=== PATIENT | female | born 1995 | race Caucasian/White ===

== ENCOUNTER → 2021-07-03 13:27 | Outpatient (REF) | payer MEDICAID, SELFPAY ==
--- NOTE | 2021-07-03 13:34 | ECG_ITS ---
Hook-up date: 2021-07-03 13:54:00 Duration: 43:13:00 Test Indications: DIZZINESS Medications: 944330 QRS complexes 1 Ventricular ectopics which represent <1 % of total QRS comp. * Supraventricular ectopics which represent % of total QRS comp. * Paced QRS complexs which represent % of total QRS comp. VENTRICULAR ECTOPY 1 Isolated 0 Bigeminal Cycles 0 Couplets 0 Runs 0 Beats in Runs * Beats LONGEST at * BPM at :: -- * Beats FASTEST at * BPM at :: -- SUPRAVENTRICULAR ECTOPY * Isolated * Couplets * Runs * Beats in Runs * Beats LONGEST at * BPM at :: -- * Beats FASTEST at * BPM at :: -- HEART RATES 51 MIN at 00:34:36 2021-07-04 84 AVG 153 MAX at 09:41:55 2021-07-04 LONGEST RR 1.3360 secs at 00:51:11 2021-07-04 S-T LEVELS Channel 1 - 128 mm at 13:54:00 2021-07-03 - 128 mm at 13:54:00 2021-07-03 Channel 2 - 128 mm at 13:54:00 2021-07-03 - 128 mm at 13:54:00 2021-07-03 Channel 3 - 128 mm at 03:31:31 -- - 128 mm at 03:31:31 Basic rhythm Normal sinus rhythm No long pause or profound bradycardia Frequent Sinus tachycardia ,30% of time HR > 100 bpm Patient reported event correlated with NSR Referred By: Ally Voss Overread By: SID MENENDEZ MD
== END ==
LOC: HO.CARD 13:27
PROVIDERS: Visit Provider Family Medicine
DX: R42 Dizziness and giddiness (principal)
CPT/HCPCS: 93225; 93226

== ENCOUNTER 2021-07-11 09:39 | Outpatient (REF) | payer MEDICAID, SELFPAY ==
--- NOTE | ~2021-07-11 | MR_ITS ---
EXAMINATION: MRI OF THE BRAIN WITHOUT CONTRAST CLINICAL INFORMATION: Dizziness. Assess for posterior fossa lesion. Assess for multiple sclerosis. COMPARISON: There are no prior studies available for comparison. TECHNIQUE: MRI of the brain was obtained using routine sequences without contrast. FINDINGS: No diffusion abnormalities are identified to suggest an acute or subacute infarct. No mass effect or midline shift is seen. The ventricles and sulci are normal in size. There is a cavum septa pellucidum and vergae. There is a small area of increased T2/FLAIR signal extending off the left aspect of the splenium of the corpus callosum posteriorly. There is likely a prominent perivascular space in the right basal ganglia. No extra-axial fluid collections are seen. The brainstem and cerebellum are normal. No pathologic magnetic susceptibility artifact is identified on the gradient refocused acquisition. The craniovertebral junction, marrow signal, and midline structures are normal. The major intracranial flow-voids at the level of the [place] of [place] are preserved. The dural venous sinus flow-voids are maintained. The mastoid air cells and paranasal sinuses are well-aerated. The nasal septum is deviated to the left. MR/MR head/brain wo con IMPRESSION: 1. There are no acute bleeds or infarcts. No masses are demonstrated. The posterior fossa appears normal. 2. There is increased T2/FLAIR signal extending posteriorly from the splenium of the corpus callosum on the left which is nonspecific. No convincing evidence of possible demyelination is noted elsewhere.
== END 2021-07-11 09:40 | disposition home or self-care (01) ==
LOC: HO.MRI 09:39
PROVIDERS: Visit Provider Psychiatry & Neurology Neurology
DX: R42 Dizziness and giddiness (principal)
CPT/HCPCS: 70551

== ENCOUNTER 2021-07-27 02:35 | Emergency (ER) | payer MEDICAID, SELFPAY ==
--- NOTE | ~2021-07-27 | US_ITS ---
EXAMINATION: US OBSTETRICAL ULTRASOUND CLINICAL INFORMATION: Irregular menses. Vaginal bleeding for one day. HCG 6601 COMPARISON: None. LMP: Unknown. Gestational age by maternal dates is unknown. Estimated date of delivery by maternal dates is unknown. TECHNIQUE: Ultrasound of the maternal pelvis is performed using transabdominal and transvaginal transducers. Transvaginal imaging is performed due to inadequate visualization transabdominally. M-mode Doppler is also performed. FINDINGS: There is an intrauterine gestational sac with mean sac diameter of 1.01 cm corresponding to gestational age of 5 weeks, 5 days. A yolk sac is evident, however no pole is seen. There is diffuse interstitial reaction and trace fluid within endometrial Canal elsewhere which may represent intrauterine blood products in keeping with the provided history. There is no significant subchorionic hemorrhage or hematoma. HR: Not detected. CRL (crown rump length): pole not yet identified. MATERNAL ADNEXA: The right maternal ovary measures 5.9 x 3.4 x 3.2 cm. Physiologic follicles present, the dominant of which measures 3.2 cm. There is a corpus luteum measuring 2.2 cm. The left maternal ovary measures 4.9 x 2.0 x 2.4 cm. There is no significant maternal adnexal mass. Trace pelvic free fluid. US/US OB pelvic and transvaginal IMPRESSION: 1. Single intrauterine gestation with ultrasound gestational age of 5 weeks, 5 days. 2. No pole is yet identified. Short interval follow-up recommended. 3. No maternal adnexal mass or pelvic ascites.
[2021-07-27 02:41] VITALS: BP 126/78; PULSE 113; RESP 18; TEMP 36.7; O2SAT 100; BMI 29.2
[2021-07-27 03:41] LABS: MANUAL DIFF FLAG NO
[2021-07-27 03:42] LABS: Basophils Absolute Auto 0.1 X10*3/uL (0.0-0.2); Basophils Percent Auto 0.4 % (0-2); Eosinophils Absolute Auto 0.4 X10*3/uL (0.0-0.4); Eosinophils Percent Auto 2.9 % (0-4); Hematocrit 38.9 % (37.0-47.0); Hemoglobin 13.1 g/dl (12.0-16.0); Imm Gran Abs Auto 0.04 X10*3/uL (0.00-0.03); Imm Gran Pct Auto 0.3 % (0.0-0.4); Lymphocytes Absolute Auto 2.9 X10*3/uL (1.2-4.9); Mean Corpuscular HGB Conc 33.7 g/dl (31.0-35.0); Mean Corpuscular Hemoglobin 30.2 pg (27.0-33.0); Mean Corpuscular Volume 89.6 fL (80.0-98.0); Monocytes Percent Auto 7.8 % (2-11); Neutrophils Absolute Auto 8.2 x10*3/uL (2.0-8.3); Neutrophils Percent Auto 65.6 % (45-73); Platelet Count 206 X10*3/uL (160-400); Red Blood Count 4.34 X10*6/uL (4.20-5.50); Red Cell Distribution Width 13.1 % (11.0-16.0); White Blood Count 12.4 X10*3/uL (4.8-10.8)
[2021-07-27 03:44] LABS: Appearance Urine CLEAR; Color Urine YELLOW; Glucose Urine UA NEG (NEG); Leukocyte Esterase Urine TRACE (NEG); Nitrite Urine NEG (NEG); PH 6.5 (5.0-8.0); Specific Gravity - Urine 1.025 (1.005-1.025); UACC Culture Trigger YES; UPreg QC Valid YES; Urine Blood 2+ (NEG); Urine Ketones 5 MG/DL (NEG); Urine Pregnancy POSITIVE (NEGATIVE); Urine Protein NEG (NEG-TRACE)
[2021-07-27 03:55] LABS: Bacteria Urine 1+ /LPF; Mucus Urine 2+ /LPF; Squamous Epithelial Cell Urine 1+ /LPF
[2021-07-27 04:03] LABS: Alanine Aminotransferase 18 U/L (0-31); Albumin Level 4.3 g/dL (3.5-5.0); Alkaline Phosphatase 64 U/L (39-117); Anion Gap 13 (12-20); Aspartate Amino Transferase 16 U/L (5-31); Bilirubin Total 0.3 mg/dL (0.0-1.0); Blood Urea Nitrogen 12 mg/dL (9-16); Calcium 9.6 mg/dL (8.4-10.2); Carbon Dioxide 23 mmol/L (22-29); Chloride 107 mmol/L (96-108); Creatinine Clr Calc Pharmacy 92.4; Estimated Glomerular Filt Rate > 60; Glucose Random 68 mg/dL (60-115); Potassium 3.8 mmol/L (3.3-5.1); Sodium 139 mmol/L (135-145); Total Protein 7.6 g/dL (6.5-8.0)
--- NOTE | 2021-07-27 04:57 | PC.NURSE ---
pt has come in multiple time requesting pt to be seen. Charge nurse is aware. Will continue to monitor pt and get her a bed as soon as possible. pt is sitting on cell phone. no sign of distress.
[2021-07-27 05:09] VITALS: BP 120/74; PULSE 89; RESP 16
--- NOTE | 2021-07-27 05:10 | PC.NURSE ---
pt is not sure when her last menstrual cycle was due to her period being irregular. pt reports bleeding happened after intercourse.
[2021-07-27 05:23] LABS: HCG Quantitative 6601 mIU/mL
--- NOTE | 2021-07-27 08:21 | ED.FEMALEGU ---
HPI - Female Genitourinary General Chief complaint: Vaginal Bleeding Stated complaint: Vaginal Bleeding/ Time Seen by Provider: 07/27/21 05:06 Source: patient Mode of arrival: ambulatory Limitations: no limitations History of Present Illness HPI Narrative: Patient 4 para 3 found out on 07/18 has not seen any OB G yet patient had intercourse last night and after that noticed bright red spotting when she wiped with mild lower abdominal cramping no urinary complaints no fever no chills no vomiting Related Data Allergies Allergy/AdvReac Type Severity Reaction Status Date / Time No Known Allergies Allergy Verified 07/27/21 05:00 Review of Systems Review of Systems: Yes all other systems are reviewed and are negative [facility] Social History Social History Patient Tobacco Use Status: Never used Tobacco Use of substances other than those prescribed or required for medical reasons: No Advance Directives: No Advance Directives Information Provided: No Physical Exam Vital Signs: Vital Signs: Last Vital Signs Temp 98.0 F 07/27/21 02:41 Pulse 89 07/27/21 05:09 Resp 16 07/27/21 05:09 BP 120/74 07/27/21 05:09 Pulse Ox 100 07/27/21 02:41 BMI result Body Mass Index 29.2 Appearance: Alert. Oriented X3. No acute distress. ENT: Pharynx normal. Oral Mucosa moist Neck: Normal inspection. Neck supple. CVS: Normal heart rate and rhythm. Pulses normal. Respiratory: No respiratory distress. Equal air entry bilateral, Abdomen: Soft and nontender. Bowel sounds are present, no mass palpable, no CVA tenderness Skin: Skin warm and dry. Normal skin color. Normal skin turgor. Neuro: Oriented X 3. MDM - Female Genitourinary MDM Narrative Medical decision making narrative: Patient with IUP 5 weeks 5 days advised to follow with ObG if any concern Lab Data Attestation: I reviewed the patient's lab results. Result diagrams: 07/27/21 03:36 07/27/21 03:36 Labs: Lab Results 07/27/21 07/27/21 07/27/21 Range/Units 03:36 03:36 03:36 WBC 12.4 H (4.8-10.8) X10*3/uL RBC 4.34 (4.20-5.50) X10*6/uL Hgb 13.1 (12.0-16.0) g/dl Hct 38.9 (37.0-47.0) % MCV 89.6 (80.0-98.0) fL MCH 30.2 (27.0-33.0) pg MCHC 33.7 (31.0-35.0) g/dl RDW 13.1 (11.0-16.0) % Plt Count 206 (160-400) X10*3/uL MPV 12.0 (9.4-12.3) fL Immature Gran % (Auto) 0.3 (0.0-0.4) % Neut % (Auto) 65.6 (45-73) % Lymph % (Auto) 23.0 (20-40) % [place] % (Auto) 7.8 (2-11) % Eos % (Auto) 2.9 (0-4) % Baso % (Auto) 0.4 (0-2) % Lymph # (Auto) 2.9 (1.2-4.9) X10*3/uL [place] # (Auto) 1.0 (0.1-1.2) X10*3/uL Eos # (Auto) 0.4 (0.0-0.4) X10*3/uL Baso # (Auto) 0.1 (0.0-0.2) X10*3/uL Abs Immat Gran (auto) 0.04 H (0.00-0.03) X10*3/uL Absolute Neuts (auto) 8.2 (2.0-8.3) x10*3/uL Absolute Nucleated RBC 0.000 (0.0-0.012) X10*3/uL Nucleated RBC % (auto) 0.0 (0.0-0.2) /100WBC Sodium 139 (135-145) mmol/L Potassium 3.8 (3.3-5.1) mmol/L Chloride 107 (96-108) mmol/L Carbon Dioxide 23 (22-29) mmol/L Anion Gap 13 (12-20) BUN 12 (9-16) mg/dL Creatinine 0.82 (0.5-1.4) mg/dL Estim Creat Clear Calc 92.4 Estimated GFR > 60 Random Glucose 68 (60-115) mg/dL Calcium 9.6 (8.4-10.2) mg/dL Total Bilirubin 0.3 (0.0-1.0) mg/dL AST 16 (5-31) U/L ALT 18 (0-31) U/L Alkaline Phosphatase 64 (39-117) U/L Total Protein 7.6 (6.5-8.0) g/dL Albumin 4.3 (3.5-5.0) g/dL Beta HCG, Quant 6601 mIU/mL Urine Color YELLOW Urine Appearance CLEAR Urine pH 6.5 (5.0-8.0) Ur Specific [place] 1.025 (1.005-1.025) Urine Protein NEG (NEG-TRACE) MG/DL Urine Glucose (UA) NEG (NEG) MG/DL Urine Ketones 5 (NEG) MG/DL Urine Blood 2+ H (NEG) Urine Nitrite NEG (NEG) Ur Leukocyte Esterase TRACE H (NEG) Urine RBC 10-14 H (0) /HPF Urine WBC 1-4 (0-4) /HPF Ur Squamous Epith Cells 1+ /LPF Urine Bacteria 1+ /LPF Urine Mucus 2+ /LPF Urine Test (NEGATIVE) 07/27/21 Range/Units 03:36 WBC (4.8-10.8) X10*3/uL RBC (4.20-5.50) X10*6/uL Hgb (12.0-16.0) g/dl Hct (37.0-47.0) % MCV (80.0-98.0) fL MCH (27.0-33.0) pg MCHC (31.0-35.0) g/dl RDW (11.0-16.0) % Plt Count (160-400) X10*3/uL MPV (9.4-12.3) fL Immature Gran % (Auto) (0.0-0.4) % Neut % (Auto) (45-73) % Lymph % (Auto) (20-40) % [place] % (Auto) (2-11) % Eos % (Auto) (0-4) % Baso % (Auto) (0-2) % Lymph # (Auto) (1.2-4.9) X10*3/uL [place] # (Auto) (0.1-1.2) X10*3/uL Eos # (Auto) (0.0-0.4) X10*3/uL Baso # (Auto) (0.0-0.2) X10*3/uL Abs Immat Gran (auto) (0.00-0.03) X10*3/uL Absolute Neuts (auto) (2.0-8.3) x10*3/uL Absolute Nucleated RBC (0.0-0.012) X10*3/uL Nucleated RBC % (auto) (0.0-0.2) /100WBC Sodium (135-145) mmol/L Potassium (3.3-5.1) mmol/L Chloride (96-108) mmol/L Carbon Dioxide (22-29) mmol/L Anion Gap (12-20) BUN (9-16) mg/dL Creatinine (0.5-1.4) mg/dL Estim Creat Clear Calc Estimated GFR Random Glucose (60-115) mg/dL Calcium (8.4-10.2) mg/dL Total Bilirubin (0.0-1.0) mg/dL AST (5-31) U/L ALT (0-31) U/L Alkaline Phosphatase (39-117) U/L Total Protein (6.5-8.0) g/dL Albumin (3.5-5.0) g/dL Beta HCG, Quant mIU/mL Urine Color Urine Appearance Urine pH (5.0-8.0) Ur Specific [place] (1.005-1.025) Urine Protein (NEG-TRACE) MG/DL Urine Glucose (UA) (NEG) MG/DL Urine Ketones (NEG) MG/DL Urine Blood (NEG) Urine Nitrite (NEG) Ur Leukocyte Esterase (NEG) Urine RBC (0) /HPF Urine WBC (0-4) /HPF Ur Squamous Epith Cells /LPF Urine Bacteria /LPF Urine Mucus /LPF Urine Test POSITIVE H (NEGATIVE) Discharge Plan Discharge Clinical Impression: Threatened Patient Disposition: Home, Self-Care Instructions: Threatened Miscarriage (ED) Additional Instructions: Follow-up with your OB G in next 2 days if bleeding continues for further evaluation Referrals: Haris So MD [Physician] - 2 days
== END 2021-07-27 08:46 | disposition home or self-care (01) ==
PROVIDERS: Emergency Provider Internal Medicine; PCP Family Medicine
DX: O20.0 Threatened abortion (principal); Z3A.01 Less than 8 weeks gestation of pregnancy
CPT/HCPCS: 36415; 76801; 76817; 80053; 81001; 81025; 84702; 85025; 87086; 99284

== ENCOUNTER 2021-09-21 13:11 | Emergency (ER) | payer MEDICAID, SELFPAY ==
[2021-09-21 13:29] VITALS: BP 141/90; PULSE 92; RESP 20; TEMP 36.9; O2SAT 100; BMI 31.9
--- NOTE | 2021-09-21 14:14 | ED.GENADULT ---
HPI - General Adult General Chief complaint: General Medical <MINDA Crow Last Filed: 09/27/21 18:09> Stated complaint: rash <MINDA Crow Last Filed: 09/27/21 18:09> Time Seen by Provider: 09/21/21 14:14 <MINDA Crow Last Filed: 09/27/21 18:09> History of Present Illness HPI narrative: Patient complains of generalized rash including the back of the hands the neck the scalp with some flaking the torso for several weeks, she has seen her doctor for this and was prescribed some medication she does not recall the name She is but denies any abdominal or pelvic pain, no bleeding no dysuria <MINDA Corw Last Filed: 09/27/21 18:09> Related Data Home medications: Previous Rx's Medication Instructions Recorded clobetasol 0.05 % shampoo See Rx Instructions .ROUTE 09/21/21 .COMPLEX #118 ml clobetasol 0.05 % topical cream 1 appl TOPICAL DAILY PRN #45 g 09/21/21 <MINDA Crow Last Filed: 09/27/21 18:09> Allergies/adverse reactions: Allergies Allergy/AdvReac Type Severity Reaction Status Date / Time No Known Allergies Allergy Verified 07/27/21 05:00 <MINDA Crow Last Filed: 09/27/21 18:09> Review of Systems Review of Systems: Positive for rash Negatives are no fever no chills no headache no dizziness no neck pain no runny nose no cough no sore throat no nausea or vomiting no joint swelling <MINDA Crow Last Filed: 09/27/21 18:09> [facility] Past Medical History Source: nursing notes reviewed <MINDA Crow Last Filed: 09/27/21 18:09> Social History Social History: Social History Patient Tobacco Use Status: Never used Tobacco Advance Directives: No Advance Directives Information Provided: No Patient : Yes <MINDA Crow Last Filed: 09/27/21 18:09> Physical Exam ED Vital Signs: Vital Signs - 24 hr 09/21/21 13:29 Temperature 98.5 F Pulse Rate 92 Respiratory Rate 20 Blood Pressure 141/90 H Pulse Oximetry 100 BMI result Body Mass Index 31.9 <MINDA Crow Last Filed: 09/27/21 18:09> General appearance no distress exam there is of flaking rash in the scalp The sinuses are not tender The pharynx is clear Neck is supple Chest is clear to auscultation The abdomen is gravid and nontender Extremities full range of motion x4 The skin showed a diffuse raised red nontender rash, raised plaques, flaking in the scalp <MINDA Crow Last Filed: 09/27/21 18:09> Course Course Course Narrative: patient who had been treated with hydrocortisone cream for this and said rash had worsened There is no pain no tenderness no swelling no sign of any infection or cellulitis It is possible at this rashes psoriasis or eczema but I am not sure Case was discussed with attending physician will agreed trial of a short course of a stronger steroid cream and she is advised to follow with the customer success manager She is otherwise well-appearing and discharged <MINDA Crow Last Filed: 09/27/21 18:09> Discharge Plan Discharge Clinical Impression: Rash <MINDA Crow Last Filed: 09/27/21 18:09> Patient Disposition: Home, Self-Care <MINDA Crow Last Filed: 09/27/21 18:09> Additional Instructions: Follow with customer success manager for further evaluation This rash may be psoriasis or eczema we are not sure We are prescribing a high potency steroid both shampoo and cream The shampoo gets applied to the scalp or it is flaky and dry, you leave it on for 15 minutes then rinse lather and rinse off You may need a referral to a customer success manager from her primary doctor <MINDA Crow Last Filed: 09/27/21 18:09> Prescriptions: New clobetasol 0.05 % cream 1 appl topical DAILY PRN (Reason: Itchy rash) Qty: 45 0RF clobetasol 0.05 % shampoo See Rx Instructions .ROUTE .COMPLEX Qty: 118 0RF Rx Instructions: 1 appl topically once every 5 days, apply to dry flaky scalp, leave on for 15 minutes then rinse ladder and wash off <MINDA Corw Last Filed: 09/27/21 18:09> Interventions: ED Discharge Assessment Last Done: 09/21/21 14:49 <MINDA Crow - Last Filed: 09/27/21 18:09> Discharge Date/Time: 09/21/21 14:50 <MINDA Crow - Last Filed: 09/27/21 18:09>
== END 2021-09-21 14:50 | disposition home or self-care (01) ==
PROVIDERS: Emergency Provider Emergency Medicine; PCP Family Medicine
DX: O26.899 Other specified pregnancy related conditions, unspecified trimester (principal); R21 Rash and other nonspecific skin eruption; Z3A.00 Weeks of gestation of pregnancy not specified
CPT/HCPCS: 99283

== ENCOUNTER 2023-04-14 12:49 | Outpatient (REF) | payer MEDICAID, SELFPAY ==
[2023-04-14 14:55] LABS: MANUAL DIFF FLAG NO
[2023-04-14 15:09] LABS: Basophils Percent Auto 0.5 % (0-2); Eosinophils Absolute Auto 0.2 X10*3/uL (0.0-0.4); Eosinophils Percent Auto 3.1 % (0-4); Hematocrit 39.2 % (37.0-47.0); Hemoglobin 12.6 g/dl (12.0-16.0); Imm Gran Abs Auto 0.01 X10*3/uL (0.00-0.03); Imm Gran Pct Auto 0.2 % (0.0-0.4); Lymphocytes Absolute Auto 1.9 X10*3/uL (1.2-4.9); Lymphocytes Percent Auto 30.6 % (20-40); Mean Corpuscular HGB Conc 32.1 g/dl (31.0-35.0); Mean Corpuscular Hemoglobin 26.9 pg (27.0-33.0); Mean Corpuscular Volume 83.6 fL (80.0-98.0); Mean Platelet Volume 12.9 fL (9.4-12.3); Monocytes Absolute Auto 0.4 X10*3/uL (0.1-1.2); Monocytes Percent Auto 6.3 % (2-11); Neutrophils Absolute Auto 3.7 x10*3/uL (2.0-8.3); Neutrophils Percent Auto 59.3 % (45-73); Platelet Count 206 X10*3/uL (160-400); Red Blood Count 4.69 X10*6/uL (4.20-5.50); White Blood Count 6.2 X10*3/uL (4.8-10.8)
[2023-04-14 15:18] LABS: Alanine Aminotransferase 46 U/L (0-31); Albumin Level 4.5 g/dL (3.5-5.0); Alkaline Phosphatase 83 U/L (39-117); Anion Gap 10 (12-20); Aspartate Amino Transferase 28 U/L (5-31); Bilirubin Total 0.6 mg/dL (0.0-1.0); Blood Urea Nitrogen 8 mg/dL (9-16); C Reactive Protein < 0.10 mg/dL (< or = 0.50); Calcium 9.6 mg/dL (8.4-10.2); Carbon Dioxide 25 mmol/L (22-29); Chloride 108 mmol/L (96-108); Estimated Glomerular Filt Rate > 60; Glucose Fasting 86 mg/dL (60-99); Iron 39 mcg/dL (30-160); Lipase 24 U/L (8-78); Percent Iron Saturation 12 % (15-50); Potassium 3.8 mmol/L (3.3-5.1); Sodium 139 mmol/L (135-145); Total Iron Binding Capacity 320 mcg/dL (228-428); Total Protein 7.9 g/dL (6.5-8.0); Unsaturated Iron Binding 281 ug/dL
[2023-04-14 15:35] LABS: Ferritin 12 ng/mL (10-122)
[2023-04-14 15:40] LABS: Vitamin B12 576 pg/mL (200-900)
[2023-04-14 21:44] LABS: Influenza A PCR NEGATIVE (Negative); Influenza B PCR NEGATIVE (Negative); Resp Syncy Virus RNA Qual PCR NEGATIVE (Negative); SARS COV2 PCR INHOUSE NEGATIVE (Negative)
[2023-04-16 16:19] LABS: Immunoglobulin G 1316 mg/dL (600-1640)
[2023-04-16 16:53] LABS: Transglutaminase IgA <1.0 U/mL
[2023-04-20 00:34] LABS: VITAMIN D (1,25 OH) D3 43 pg/mL; Vit D (1,25-Dihydroxy) Total 43 pg/mL (18-72); Vitamin D (1,25 OH) D2 <8 pg/mL
== END 2023-04-14 12:50 | disposition home or self-care (01) ==
LOC: HO.CHCLDS 12:49
PROVIDERS: Visit Provider Registered Nurse
DX: Z20.822 Contact with and (suspected) exposure to COVID-19 (principal); B34.9 Viral infection, unspecified; R19.7 Diarrhea, unspecified
CPT/HCPCS: 0241U; 80053; 82607; 82652; 82728; 82784; 83540; 83690; 85025; 86140; 86364; 87070

== ENCOUNTER 2023-08-18 08:15 | Emergency (ER) | payer MEDICAID, SELFPAY ==
--- NOTE | ~2023-08-18 | CT_ITS ---
EXAMINATION: CT HEAD WITHOUT CONTRAST CLINICAL INFORMATION: Headache. COMPARISON: None available. TECHNIQUE: Contiguous axial imaging was performed from the skull base to vertex without intravenous administration of contrast. This CT examination was performed using dose optimization techniques as appropriate, variously including the following: *Automated exposure control *Adjustment of mA and/or kV according to patient size (this includes techniques or standardized protocols for targeted exams where dose is matched to indication/reason for exam; i.e. extremities or head) *Use of iterative reconstruction technique DLP: 661 mGy-cm FINDINGS: No acute intra-axial, extra-axial bleed, masses or midline shift. There is no acute infarction in evolution. There is no edema. The lateral ventricles are symmetrical in size and configuration without enlargement. The mari to white matter differentiation is maintained normal. There is cavum septum pellucidum, a normal midline variation noted. There is no abnormality seen in the posterior fossa. Bone windows reveal no calvarial abnormality. Bilateral paranasal sinuses and mastoid air cells are well-aerated. CT/CT head/brain wo IV con IMPRESSION: No acute intracranial process seen...
[2023-08-18 08:30] VITALS: BP 132/87; PULSE 122; RESP 18; TEMP 36.6; O2SAT 100; BMI 32.1
--- NOTE | 2023-08-18 08:34 | ECG_ITS ---
Test Reason : chest pain Blood Pressure : / mmHG Vent. Rate : 126 BPM Atrial Rate : 126 BPM P-R Int : 112 ms QRS Dur : 074 ms QT Int : 416 ms P-R-T Axes : 000 079 064 degrees QTc Int : 602 ms [address] Nonspecific [address] abnormality Abnormal ECG No previous ECGs available Referred By: Generic ED Physician Electronically Signed By:SID MENENDEZ MD
[2023-08-18 09:20] LABS: MANUAL DIFF FLAG NO
[2023-08-18 09:25] LABS: Basophils Percent Auto 0.2 % (0-2); Eosinophils Percent Auto 0.1 % (0-4); Hematocrit 41.3 % (37.0-47.0); Hemoglobin 13.8 g/dl (12.0-16.0); Imm Gran Abs Auto 0.04 X10*3/uL (0.00-0.03); Imm Gran Pct Auto 0.5 % (0.0-0.4); Lymphocytes Absolute Auto 0.7 X10*3/uL (1.2-4.9); Mean Corpuscular HGB Conc 33.4 g/dl (31.0-35.0); Mean Corpuscular Hemoglobin 28.9 pg (27.0-33.0); Mean Corpuscular Volume 86.4 fL (80.0-98.0); Mean Platelet Volume 12.4 fL (9.4-12.3); Monocytes Absolute Auto 0.4 X10*3/uL (0.1-1.2); Monocytes Percent Auto 4.5 % (2-11); Neutrophils Absolute Auto 7.4 x10*3/uL (2.0-8.3); Neutrophils Percent Auto 86.7 % (45-73); Platelet Count 178 X10*3/uL (160-400); Red Blood Count 4.78 X10*6/uL (4.20-5.50); Red Cell Distribution Width 13.5 % (11.0-16.0); White Blood Count 8.5 X10*3/uL (4.8-10.8)
[2023-08-18 09:37] LABS: Alanine Aminotransferase 25 U/L (0-31); Albumin Level 4.4 g/dL (3.5-5.0); Alkaline Phosphatase 77 U/L (39-117); Anion Gap 14 (12-20); Aspartate Amino Transferase 21 U/L (5-31); Bilirubin Direct 0.2 mg/dL (0.0-0.5); Bilirubin Total 0.8 mg/dL (0.0-1.0); Blood Urea Nitrogen 14 mg/dL (9-16); Calcium 9.1 mg/dL (8.4-10.2); Carbon Dioxide 23 mmol/L (22-29); Chloride 106 mmol/L (96-108); Creatinine Clr Calc Pharmacy 100.3; Estimated Glomerular Filt Rate > 60; Glucose Random 100 mg/dL (60-115); Lipase 28 U/L (8-78); Potassium 3.5 mmol/L (3.3-5.1); Sodium 139 mmol/L (135-145)
[2023-08-18 09:41] LABS: Troponin-I High Sensitivity < 2.7 ng/L (<3.5-17.0)
[2023-08-18 09:43] LABS: COVID-19 Test Negative (Negative); IDNOW Serial# 08D9AD1C
[2023-08-18 09:44] LABS: IDNOW Serial# 152EDE1D; Influenza A Negative (Negative); Influenza B2 Negative (Negative)
[2023-08-18 13:02] VITALS: BP 142/99; PULSE 126; RESP 16; TEMP 36.2; O2SAT 99
--- NOTE | 2023-08-18 13:06 | ED.GENADULT ---
HPI - General Adult General Chief complaint: Nausea/Vomiting/Diarrhea Stated complaint: chest pain Time Seen by Provider: 08/18/23 16:54 Source: patient Mode of arrival: ambulatory Limitations: no limitations History of Present Illness HPI narrative: Patient is a 28-year-old female who presents to the emergency department multiple complaints. She reports an intractable diffuse headache for the past 3 days, that does not alleviate with Tylenol or ibuprofen at home. She does report a history of similar headaches in the past, her doctor referred her to a neurologist but she did not follow-up with this referral. Last night she developed midsternal chest pain that has been constant in nature since its onset, she has difficulty describing it is quality, but she reports it is severe. At times made worse with movement, and has associated nausea with this. Reports multiple episodes of bilious vomiting since the onset last night. She is also experienced multiple episodes of diarrhea today. She denies any known sick contacts or recent URI symptoms. She denies dizziness, lightheadedness, neck pain, neck stiffness, vision changes, shortness of breath, urinary symptoms. She does state that she is currently having menstrual bleeding, reports that she underwent a spontaneous 2 weeks ago and has been bleeding since then, reports bleeding at this time is light, no passage of large clots. She does report a history of chest pain in the past that has felt similar, however, she states it has never lasted for this long. , usually lasted only a few minutes before self-resolving. She states that she was evaluated by a steam and power superintendent for this approximately 1 year ago, had a Holter monitor obtained which was reportedly normal. Related Data Previous Rx's Medication Instructions Recorded clobetasol 0.05 % shampoo See Rx Instructions .Route 09/21/21 .COMPLEX #118 mL clobetasol 0.05 % topical cream 1 appl topical DAILY PRN Itchy 09/21/21 rash #45 grams ondansetron 4 mg disintegrating 4 mg PO Q8H PRN nausea and 08/18/23 tablet vomiting #14 tabs Allergies Allergy/AdvReac Type Severity Reaction Status Date / Time No Known Allergies Allergy Verified 08/18/23 08:30 Review of Systems Review of Systems: Yes all other systems are reviewed and are negative PMFSH Past Medical History Attestation statement: The following information was validated with the patient. Source: old records reviewed Social History Social History Patient Tobacco Use Status: Never used Tobacco Smoked in Last 30 Days: No Use of substances other than those prescribed or required for medical reasons: No Advance Directives: No Advance Directives Information Provided: No Physical Exam ED Vital Signs: Vital Signs - 24 hr 08/18/23 08:30 08/18/23 13:02 08/18/23 18:02 Temperature 98 F 97.1 F 99.0 F Pulse Rate 122 H 126 H 122 H Respiratory Rate 18 16 16 Blood Pressure 132/87 142/99 H 124/86 Pulse Oximetry 100 99 100 Oxygen Delivery Method Room Air Room Air Room Air 08/18/23 20:26 Temperature Pulse Rate 98 Respiratory Rate 16 Blood Pressure 117/79 Pulse Oximetry 99 Oxygen Delivery Method Room Air BMI result Body Mass Index 32.1 Appearance: Alert.?Oriented to person, place and time. No acute distress.?Normal affect. Eyes: Pupils equal, round and reactive to light.? EOMI. No nystagmus. ENT: Pharynx normal.??TM normal bilaterally Neck: Normal inspection.? Neck supple.??No nuchal rigidity CVS: Heart sounds normal. Normal heart rate and rhythm.? Pulses normal.?? Respiratory: No respiratory distress.? Lung sounds clear to auscultation bilaterally?? Abdomen: Soft and non-tender. Normoactive bowel sounds. No pulsatile mass.??No CVA tenderness Skin: Skin warm and dry.? Normal skin color.? Normal skin turgor.?? Extremities: No lower extremity edema.? No calf ttp? Neuro: Moves all extremities spontaneously. Sensation intact bilaterally. CN II-XII intact. No focal neuro deficits. Ambulates with normal steady gait. Course Course Course Narrative: RME- 28 old female presents for evaluation chest pain that started last night. Also complains of nausea vomiting and headache. She still complains of 8/10 chest pain. Denies any shortness of breath. Heart rate on arrival was 122 and repeat is 126. I added a D-dimer. The patient is not on any anticoagulation has no other risk factors for PE. She has seen cardiology in the past for chest pain Reevaluation(s) Reevaluation #1: Headache with improvement, tolerating oral intake. Ambulatory with steady gait. Atypical chest pain, suspect viral syndrome. Urinalysis significant amount of squamous epithelial cells, 4+ urine bacteria, no urinary symptoms, I suspect urogenital contamination, culture to follow, would not treat with antibiotics at this time. Stable for discharge home. All questions answered. Time: 21:17 Medications Administered Discontinued Medications Generic Name Dose Route Start Last Admin Trade Name López PRN Reason Stop Dose Admin Diphenhydramine HCl 25 mg 08/18/23 17:20 08/18/23 18:01 Diphenhydramine Hcl 50 Mg/Ml Vial IVPUSH 08/18/23 17:21 25 mg ONCE ONE Administration Sodium Chloride 1,000 mls @ 999 mls/hr 08/18/23 17:30 08/18/23 17:59 Ns IV 08/18/23 18:30 999 mls/hr .Q1H1M MARINA Administration Sodium Chloride 1,000 mls @ 999 mls/hr 08/18/23 17:45 08/18/23 18:00 Ns IV 08/18/23 18:45 999 mls/hr .Q1H1M MRAINA Administration Ketorolac Tromethamine 30 mg 08/18/23 17:20 08/18/23 18:00 Ketorolac Tromethamine 30 Mg/Ml Vial IVPUSH 08/18/23 17:21 30 mg ONCE ONE Administration Metoclopramide HCl 10 mg 08/18/23 17:20 08/18/23 18:00 Metoclopramide Hcl 10 Mg/2 Ml Vial IVPUSH 08/18/23 17:21 10 mg ONCE ONE Administration Medical Decision Making Medical Decision Making MDM Narrative: Patient is a 28 old female who presents emergency department for evaluation of intractable headache, nausea, vomiting, diarrhea, and chest pain as per HPI. At the time my examination she appears overall well, she does remain tachycardic since her arrival to the emergency department with heart rate in the 120s, EKG was obtained prior to my assumption of care revealing a sinus tachycardia without acute ischemic findings, no ST-elevation ST-depression, high sensitive troponin is below detectable limits, I do not suspect ACS. D-dimer negative, less likely pulmonary embolism. CMP and lipase unremarkable, no electrolyte derangement, CHEMA, or biliary/hepatic etiology, and abdominal examination is benign. CBC is without leukocytosis or anemia.. She has no focal neurological deficits upon examination. CT of the head was obtained which reveals no acute intracranial abnormality. COVID-19/viral testing is negative. Beta hCG is detectable at 7, however she is still currently bleeding from her recent miscarriage as per HPI, she denies pelvic pain, passage of large clots, or genitourinary symptoms to suggest retained POC. Plan to medicate patient with normal saline 2L IV fluid, migraine cocktail including Toradol, Reglan, and Benadryl and obtain urinalysis for complete evaluation and re-evaluate Differential Diagnosis Differential Diagnoses: The differential diagnosis associated with the presentation includes (Migraine headache, tension headache, intracranial mass, doubt ICH/SDH. Atypical chest pain, muscular pain, GERD, PUD, no risk factors for ACS/PE, no URI symptoms to suggest PNA. UTI, gastritis, viral syndrome) Admission/Observation Consideration of admission/observation: Escalation of care including admission/observation considered (As noted above) Lab Data MDM Lab Attestation statement: I reviewed the patient's lab results. (As per narrative above) 08/18/23 09:10 08/18/23 09:10 Labs: Lab Results 08/18/23 08/18/23 08/18/23 Range/Units 09:10 09:19 13:32 WBC 8.5 (4.8-10.8) X10*3/uL RBC 4.78 (4.20-5.50) X10*6/uL Hgb 13.8 (12.0-16.0) g/dl Hct 41.3 (37.0-47.0) % MCV 86.4 (80.0-98.0) fL MCH 28.9 (27.0-33.0) pg MCHC 33.4 (31.0-35.0) g/dl RDW 13.5 (11.0-16.0) % Plt Count 178 (160-400) X10*3/uL MPV 12.4 H (9.4-12.3) fL Immature Gran % (Auto) 0.5 H (0.0-0.4) % Neut % (Auto) 86.7 H (45-73) % Lymph % (Auto) 8.0 L (20-40) % Morris % (Auto) 4.5 (2-11) % Eos % (Auto) 0.1 (0-4) % Baso % (Auto) 0.2 (0-2) % Lymph # (Auto) 0.7 L (1.2-4.9) X10*3/uL Morris # (Auto) 0.4 (0.1-1.2) X10*3/uL Eos # (Auto) 0.0 (0.0-0.4) X10*3/uL Baso # (Auto) 0.0 (0.0-0.2) X10*3/uL Abs Immat Gran (auto) 0.04 H (0.00-0.03) X10*3/uL Absolute Neuts (auto) 7.4 (2.0-8.3) x10*3/uL Absolute Nucleated RBC 0.000 (0.0-0.012) X10*3/uL Nucleated RBC % (auto) 0.0 (0.0-0.2) /100WBC D-Dimer High Sensitivty < 150 NG/ML Sodium 139 (135-145) mmol/L Potassium 3.5 (3.3-5.1) mmol/L Chloride 106 (96-108) mmol/L Carbon Dioxide 23 (22-29) mmol/L Anion Gap 14 (12-20) BUN 14 (9-16) mg/dL Creatinine 0.77 (0.5-1.4) mg/dL Estim Creat Clear Calc 100.3 Estimated GFR > 60 Random Glucose 100 (60-115) mg/dL Calcium 9.1 (8.4-10.2) mg/dL Total Bilirubin 0.8 (0.0-1.0) mg/dL Direct Bilirubin 0.2 (0.0-0.5) mg/dL AST 21 (5-31) U/L ALT 25 (0-31) U/L Alkaline Phosphatase 77 (39-117) U/L Troponin I High Sens < 2.7 (<3.5-17.0) ng/L Total Protein 8.0 (6.5-8.0) g/dL Albumin 4.4 (3.5-5.0) g/dL Lipase 28 (8-78) U/L Beta HCG, Quant 7 mIU/mL Urine Color Urine Appearance Urine pH (5.0-9.0) Ur Specific [place] (1.005-1.025) Urine Protein (Neg-Trace) mg/dL Urine Glucose (UA) (Negative) mg/dL Urine Ketones (Negative) mg/dL Urine Blood (Negative) Urine Nitrite (Negative) Ur Leukocyte Esterase (Negative) Urine RBC (0-2) /HPF Urine WBC (0-5) /HPF Ur Squamous Epith Cells (0-2) /HPF Urine Bacteria (None Seen) Hyaline Casts (0-2) /LPF Urine Test (NEGATIVE) COVID-19 (MARLYS) Negative (Negative) COVID-19 Clin Com See Note Influenza Type A (DIMITRY) Negative (Negative) Influenza Type B (DIMITRY) Negative (Negative) Influenza A & B Note See Note 08/18/23 Range/Units 20:26 WBC (4.8-10.8) X10*3/uL RBC (4.20-5.50) X10*6/uL Hgb (12.0-16.0) g/dl Hct (37.0-47.0) % MCV (80.0-98.0) fL MCH (27.0-33.0) pg MCHC (31.0-35.0) g/dl RDW (11.0-16.0) % Plt Count (160-400) X10*3/uL MPV (9.4-12.3) fL Immature Gran % (Auto) (0.0-0.4) % Neut % (Auto) (45-73) % Lymph % (Auto) (20-40) % Morris % (Auto) (2-11) % Eos % (Auto) (0-4) % Baso % (Auto) (0-2) % Lymph # (Auto) (1.2-4.9) X10*3/uL Morris # (Auto) (0.1-1.2) X10*3/uL Eos # (Auto) (0.0-0.4) X10*3/uL Baso # (Auto) (0.0-0.2) X10*3/uL Abs Immat Gran (auto) (0.00-0.03) X10*3/uL Absolute Neuts (auto) (2.0-8.3) x10*3/uL Absolute Nucleated RBC (0.0-0.012) X10*3/uL Nucleated RBC % (auto) (0.0-0.2) /100WBC D-Dimer High Sensitivty NG/ML Sodium (135-145) mmol/L Potassium (3.3-5.1) mmol/L Chloride (96-108) mmol/L Carbon Dioxide (22-29) mmol/L Anion Gap (12-20) BUN (9-16) mg/dL Creatinine (0.5-1.4) mg/dL Estim Creat Clear Calc Estimated GFR Random Glucose (60-115) mg/dL Calcium (8.4-10.2) mg/dL Total Bilirubin (0.0-1.0) mg/dL Direct Bilirubin (0.0-0.5) mg/dL AST (5-31) U/L ALT (0-31) U/L Alkaline Phosphatase (39-117) U/L Troponin I High Sens (<3.5-17.0) ng/L Total Protein (6.5-8.0) g/dL Albumin (3.5-5.0) g/dL Lipase (8-78) U/L Beta HCG, Quant mIU/mL Urine Color Dark Yellow Urine Appearance Cloudy Urine pH 6.0 (5.0-9.0) Ur Specific [place] >= 1.030 H (1.005-1.025) Urine Protein 30 (1+) H (Neg-Trace) mg/dL Urine Glucose (UA) Negative (Negative) mg/dL Urine Ketones 40 (Negative) mg/dL Urine Blood Large (3+) H (Negative) Urine Nitrite Negative (Negative) Ur Leukocyte Esterase Negative (Negative) Urine RBC 3-5 H (0-2) /HPF Urine WBC 11-20 (0-5) /HPF Ur Squamous Epith Cells >20 (0-2) /HPF Urine Bacteria 4+ (None Seen) Hyaline Casts 6-10 (0-2) /LPF Urine Test NEGATIVE (NEGATIVE) COVID-19 (MARLYS) (Negative) COVID-19 Clin Com Influenza Type A (DIMITRY) (Negative) Influenza Type B (DIMITRY) (Negative) Influenza A & B Note Independent Interpretation I performed an independent interpretation of an: CT Scan Radiology Impression Discussion of test interpretation with radiology: I have reviewed the radiologist's reading. Radiologist Impression: CT/CT head/brain wo IV con IMPRESSION: No acute intracranial process seen.. Independent Historian Clinical information obtained from an independent historian. History obtained from or confirmed by: Spouse (Present who confirms history) Tests considered The following testing was considered but not selected: See narrative above Prescription Management I considered prescription management with: Pain Medication Discharge Plan Discharge Clinical Impression: Acute viral syndrome, Atypical chest pain Patient Disposition: Home, Self-Care Instructions: Viral Syndrome (ED), Noncardiac Chest Pain (ED) Additional Instructions: Be sure to stay well hydrated, drink plenty of fluids. Zofran as needed every 8 hours for nausea/vomiting Introduce a bland diet including crackers, bananas, rice, soup, toast, and boiled vegetables. This may progress to plain baked or boiled chicken or turkey. Avoid dairy products or foods high in fat or grease. You can take ibuprofen 200 mg, 3 tablets (600mg) every 6-8 hours as needed for pain, in addition to Tylenol 500 mg, 2 tablets (1,000mg) every 4-6 hours as needed for pain, but not to exceed 3 doses daily (3,000mg).? Follow-up with your primary care provider for persistent symptoms. Return back to emergency department any new or worsening symptoms or concerns Prescriptions: New ondansetron 4 mg tablet,disintegrating 4 mg PO Q8H PRN (Reason: nausea and vomiting) Qty: 14 0RF No Action clobetasol 0.05 % cream 1 appl topical DAILY PRN (Reason: Itchy rash) Qty: 45 0RF clobetasol 0.05 % shampoo See Rx Instructions .ROUTE .COMPLEX Qty: 118 0RF Rx Instructions: 1 appl topically once every 5 days, apply to dry flaky scalp, leave on for 15 minutes then rinse ladder and wash off Referrals: Ally Voss MD [Primary Care Provider] -
[2023-08-18 13:55] LABS: D Dimer High Sensitivity < 150 NG/ML
[2023-08-18 14:31] LABS: HCG Quantitative 7 mIU/mL
--- OUTSIDE RECORDS SUMMARY | 2023-08-18 17:12 | XMS_ITS | Continuity of Care Document ---
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 Name Role Phone Not on Staff, PCP Primary Care Physician Unavail able Encounter [facility] Date(s): 07/25/21 - 08/28/[address] [address]- Attending Physician: Not on Staff, Attending MD Allergies, Adverse Reactions, Alerts No Known Allergies Medications Multivitamins with Folic Acid 1 mg oral tablet 1 tablet, By Mouth, Daily, # 90 tablet, 3 Refills, Maintenance, 08/16/21 9:20:00 EST, Tablet, [id number], Partial fill upon patient request if the prescription is for a schedule II opioid drug., 1 tablet By Mouth Daily Start Date: 08/16/21 Status: Ordered Reglan 10 mg oral tablet 1 tablet = 10 mg, By Mouth, 4 times a day, PRN Nausea & Vomiting, for 21 days, # 84 tablet, 0 Refills, Acute 09/17/21 12:16:00 EST, 08/27/21 12:16:00 EST, Tablet, [id number], Partial fillupon patient request if the prescription is for a sched... Start Date: 08/27/21 Stop Date: 09/17/21 Status: Ordered Unisom 25 mg oral tablet 1 tablet = 25 mg, By Mouth, Daily at bedtime, for 30 days, 15 to 30 minutes before bed, # 30 tablet, 1 Refills, Acute 10/15/21 9:21:00 EDT, 08/16/21 9:21:00 EST, Tablet, [id number], Partial fill upon patient request if the prescription is for... Start Date: 08/16/21 Stop Date: 10/15/21 Status: Ordered Vitamin B6 25 mg oral tablet 1 tablet = 25 mg, By Mouth, 3 times a day, for 30 days, # 90 tablet, 1 Refills, Acute 10/15/21 9:20:00 EDT, 08/16/21 9:20:00 EST, [facility] #[id number], Partial fill upon patient request if the prescription is for a schedule II opioid drug. Start Date: 08/16/21 Stop Date: 10/15/21 Status: Ordered Social History Social History Type Response Smoking Status Never (less than 100 in lifetime) entered on: 08/16/21 Sex
--- OUTSIDE RECORDS SUMMARY | 2023-08-18 17:13 | XMS_ITS | Continuity of Care Document ---
Author Name Unknown Organization [facility] Address [address] [place] [id number]- Care Team Providers Care Head Of Ethics And Compliance Name Role Phone Bipin PEDRO, Ally Primary Care Physician Encounter [facility] Date(s): 12/19/22 - 01/18/[address] [address]- Allergies, Adverse Reactions, Alerts Substance Reaction Severity Status Peanuts Shrimp eel Active Shrimp Active Immunizations Given and Recorded Vaccine Date Status Refusal Reason Measles/Mumps/Rubella Virus Vaccine 01/09/23 Given tetanus/diphtheria/pertussis, acel(Tdap) 12/30/21 Given Not Given Vaccine Date Status Refusal Reason Measles/Mumps/Rubella Virus Vaccine 03/26/22 Not G iven Patient Refuses Measles/Mumps/Rubella Virus Vaccine 03/26/22 Not G iven Patient Refuses Medications docusate sodium 100 mg oral tablet 1 tablet = 100 mg, By Mouth, 2 times a day, PRN for constipation, # 60 tablet, 0 Refills, Maintenance, 01/08/23 7:03:00 EDT, Tablet, [facility]/pharmacy #[id number], Partial fill upon patient request if the prescription is for a schedule II opioid drug., 154, cm,... Start Date: 01/08/23 Status: Ordered ibuprofen 600 mg oral tablet 600 mg, 1, tablet, By Mouth, Every 6 hours, # 50 tablet, Refills 0, Tot. Refills 0, Maintenance, 01/08/23 7:03:00 EDT, Route to Pharmacy Electronically, [facility]/pharmacy #[id number], Partial fill upon patient request if the prescription is for a schedule II opi... Start Date: 01/08/23 Status: Ordered MiraLax oral powder for reconstitution = 17 Gm, By Mouth, Daily, dissolve in water before taking, # 255 Gm, 0 Refills, Maintenance, 01/08/23 7:03:00 EDT, REC Powder, [facility]/pharmacy #[id number], Partial fill upon patient request if the prescription is for a schedule II opioid drug., 17 Gm By Mouth... Start Date: 01/08/23 Status: Ordered oxyCODONE 5 mg oral tablet 5 mg, 1, tablet, By Mouth, Every 6 hours, PRN, # 10 tablet, Refills 0, Tot. Refills 0, Maintenance,as needed for pain, 01/08/23 7:03:00 EDT, Route to Pharmacy Electronically, [id number], Partial fill upon patient request if the prescription i... Start Date: 01/08/23 Status: Ordered simethicone 80 mg oral tablet, chewable 80 mg, 1, tablet, Chew, 4 times a day, PRN, # 36 tablet, Refills 0, Tot. Refills 0, Maintenance, asneeded for gas, 01/08/23 7:03:00 EDT, Route to Pharmacy Electronically, [id number], Partialfill upon patient request if the prescription is fo... Start Date: 01/08/23 Status: Ordered Tylenol 325 mg oral tablet 650 mg, 2, tablet, By Mouth, Every 6 hours, PRN, # 120 tablet, Refills 0, Tot. Refills 0, Maintenance, for pain, 01/08/23 7:03:00 EDT, Route to Pharmacy Electronically, [facility]/pharmacy #[id number], Partial fill upon patient request if the prescription is for a... Start Date: 01/08/23 Status: Ordered Problem List Condition Confirmation Course Effective Dates Status Health St atus Informant Hx of preeclampsia, prior , currently Confirmed Active Obese class II Confirmed Active Rubella non-immune status, antepartum Confirmed Active Social History Social History Type Response Smoking Status Never (less than 100 in lifetime) entered on: 08/16/21 Sex Patient Care team information Care Team Personnel Name: Ally Voss MD Position: Reference Physician Member Role: PCP Address: Address: [address] [place] [address]- [place] Care Team Related Persons Name: CHIRAG LOZOYA Address: [id number] Address: home [address] [address] [place] Name: MELVA LOZOYA Address: [id number] Address: home [address] [address] [place] Name: RALEIGH BLUE Address: home [address] [address]
--- OUTSIDE RECORDS SUMMARY | 2023-08-18 17:13 | XMS_ITS | Continuity of Care Document ---
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 Refills 0, Maintenance, 01/08/23 7:03:00 EDT, Route to Pharmacy Electronically, [facility]/pharmacy #[id number], Partial fill upon patient request if the prescription is for a schedule II opi... Start Date: 01/08/23 Status: Ordered Tylenol 325 [...] Effective Dates Status Health St atus Informant Obese class I Confirmed Active Rubella non-immune status, antepartum Confirmed Active Social History Social History Type Response Smoking Status Never (less than 100 in lifetime) entered on: 08/16/21 Sex Patient Care team information Care Team Personnel Name: Ally Voss MD Position: Reference Physician Member Role: PCP Address: Address: [address] [place] [address]- Care Team Related Persons Name: CHIRAG LOZOYA Address: [address] Address: home [address] [place] [address] [place] Name: MELVA LOZOYA Address: [address] Address: home [address] [address] [place] Name: RALEIGH BLUE Address: home [address] [address]
--- OUTSIDE RECORDS SUMMARY | 2023-08-18 17:13 | XMS_ITS | Continuity of Care Document ---
Author Name Unknown Organization [facility] ter Address [address] [place] [id number]- Care Team Providers Care Mastic Man Name Role Phone Ally Voss MD Primary Care Physician Encounter [facility] [place] Date(s): 01/05/23 - 01/09/[address] [address]- Discharge Disposition: A-D/C Home Attending Physician: Stephen Howe MD Admitting Physician: Stephen Howe MD Referring Physician: Stephen Howe MD Allergies, Adverse Reactions, Alerts Substance Reaction Severity Status Peanuts Shrimp eel Active Shrimp Active Immunizations Given and Recorded Vaccine Date Status Refusal Reason Measles/Mumps/Rubella Virus Vaccine 01/09/23 Given tetanus/diphtheria/pertussis, acel(Tdap) 12/30/21 Given Not Given Vaccine Date Status Refusal Reason Measles/Mumps/Rubella Virus Vaccine 03/26/22 Not G iven Patient Refuses Measles/Mumps/Rubella Virus Vaccine 03/26/22 Not G iven Patient Refuses Medications Acetaminophen Tablet 650 mg, Tablet, By Mouth, (1-3), may give 325mg per patient preference and re- dose with 325mg within 4 hours, if needed. Patient should only receive a total of 650mg of Acetaminophen every 4 hours., 01/09/23 8:40:00 EDT Start Date: 01/09/23 Stop Date: 01/09/23 Status: Completed docusate sodium 100 mg oral tablet 1 tablet = 100 mg, By Mouth, 2 times a day, PRN for constipation, # 60 tablet, 0 Refills, Maintenance, 01/08/23 7:03:00 EDT, Tablet, [facility]/pharmacy #[id number], Partial fill upon patient request if the prescription is for a schedule II opioid drug., 154, cm,... Start Date: 01/08/23 Status: Ordered ibuprofen 600 mg oral tablet 600 mg, 1, tablet, By Mouth, Every 6 hours, # 50 tablet, Refills 0, Tot. Refills 0, Maintenance, 01/08/23 7:03:00 EDT, Route to Pharmacy Electronically, [facility]/pharmacy #[id number], Partial fill upon patient request if the prescription is for a schedule II opi... Start Date: 01/08/23 Status: Ordered Ibuprofen Tablet 800 mg, Tablet, By Mouth, (4-6), may give 400mg per patient preference and re- dose with 400mg within 8 hours, if needed. Patient should only receive a total of 800mg of Ibuprofen every 8 hours., 01/09/23 9:00:00 EDT Start Date: 01/09/23 Stop Date: 01/09/23 Status: Completed MiraLax oral powder for reconstitution = 17 Gm, By Mouth, Daily, dissolve in water before taking, # 255 Gm, 0 Refills, Maintenance, 01/08/23 7:03:00 EDT, REC Powder, [facility]/pharmacy #[id number], Partial fill upon patient request if the prescription is for a schedule II opioid drug., 17 Gm By Mouth... Start Date: 01/08/23 Status: Ordered oxyCODONE 5 mg oral tablet 5 mg, 1, tablet, By Mouth, Every 6 hours, PRN, # 10 tablet, Refills 0, Tot. Refills 0, Maintenance,as needed for pain, 01/08/23 7:03:00 EDT, Route to Pharmacy Electronically, [facility]/pharmacy #[id number], Partial fill upon patient request if the prescription i... Start Date: 01/08/23 Status: Ordered OxyCODONE IR Tablet 5 mg, Tablet, By Mouth, Every 3 hours, PRN for Pain , Severe, (7-10), Routine, 01/06/23 15:50:00 EDT Start Date: 01/06/23 Stop Date: 01/09/23 Status: Discontinued simethicone 80 mg oral tablet, chewable 80 mg, 1, tablet, Chew, 4 times a day, PRN, # 36 tablet, Refills 0, Tot. Refills 0, Maintenance, asneeded for gas, 01/08/23 7:03:00 EDT, Route to Pharmacy Electronically, [facility]/pharmacy #[id number], Partialfill upon patient request if the prescription is fo... Start Date: 01/08/23 Status: Ordered Tylenol 325 mg oral tablet 650 mg, 2, tablet, By Mouth, Every 6 hours, PRN, # 120 tablet, Refills 0, Tot. Refills 0, Maintenance, for pain, 01/08/23 7:03:00 EDT, Route to Pharmacy Electronically, [facility]/pharmacy #[id number], Partial fill upon patient request if the prescription is for a... Start Date: 01/08/23 Status: Ordered Problem List Condition Confirmation Course Effective Dates Status Health St atus Informant Hx of preeclampsia, prior , currently Confirmed Active Obese class II Confirmed Active Rubella non-immune status, antepartum Confirmed Active Procedures Procedure Date Related Diagnosis Body Site Status delivery only; 01/05/23 C ompleted Vital Signs Most recent to oldest [Reference Range]: 1 2 3 Weight 82.9 kg (01/05/23 1:20 PM) Oxygen Saturation [94-100 %] 100 % (01/09/23 12:01 AM) 99 % (01/08/23 8:06 PM) 100 % (01/08/23 8:27 AM) Pulse Rate [55-90 bpm] 56 bpm (01/09/23 12:01 AM) 83 bpm (01/08/23 8:06 PM) 81 bpm (01/08/23 8:27 AM) Blood Pressure [90-138/55-84 mm Hg] 138/89mm Hg (01/09/23 12:01 AM) 125/77mm Hg (01/08/23 8:06 PM) 129/92mm Hg (01/08/23 8:27 AM) Respiratory Rate [16-30 br/min] 18 br/min (01/09/23 11:02 AM) 18 br/min (01/09/23 11:02 AM) 18 br/min (01/09/23 10:02 AM) Temperature [96.8-100.4 DegF] 97.5 DegF (01/09/23 12:01 AM) 97.7 DegF (01/08/23 8:06 PM) 97.5 DegF (01/08/23 8:27 AM) Mode of Delivery (Oxygen) Room air (01/09/23 12:01 AM) Room air (01/08/23 8:06 PM) Room air (01/08/23 8:27 AM) Blood pressure sites Arm, left (01/09/23 12:01 AM) Arm, right (01/08/23 8:06 PM) Arm, right (01/08/23 8:27 AM) Temperature Route Oral (01/09/23 12:01 AM) Oral (01/08/23 8:06 PM) Oral (01/08/23 8:27 AM) Dry Weight 82.9 kg (01/05/23 1:20 PM) Weight Obtained Via Standing scale (01/05/23 1:20 PM) Dry Weight Obtained Via Standing scale (01/05/23 1:20 PM) Social History Social History Type Response Smoking Status Never (less than 100 in lifetime) entered on: 08/16/21 Sex History and physical note * Shaquille Galan MD, Courtney: PERFORM, MODIFY Event Display: History and Physical Hospital Authored Date: [id number] Patient: ??HUGH CARMICHAEL ? Age:??27 Years?Sex:??Female?:??1995?? LMP/EGA/REFUGIO Gestational Age (EGA) and REFUGIO? * Note: EGA calculated as of 01/06/2023 ?? REFUGIO:??02/18/2023?EGA*:??33 weeks 5 days ? History?(4,0,0,4)?Method:??Ultrasound??(07/31/2022) History of Present Illness 27yo @33+5 [facility] with abdominal pain and bright red bleeding that started earlierthis morning. Endorses good movement, no leakage of fluid. Having frequent contractions that are coming more intense. Review of Systems All reviewed and negative Physical Exam Vitals & Measurements T:??98.8?F?? HR:??75??(Peripheral)?? RR:??18?? BP:??129/79?? SpO2:??96%?? WT:??82.9??kg?? Constitutional:??Well-developed, no acute distress. Respiratory:??Normal work of breathing.? Abdomen/GI:??Soft, tender to??palpation in suprapubic region.??non-distended. No guarding or rebound tenderness.??Gravid. Gynecological: normal external genitalia, approximately 200-300 ml in pad and vaginal vault Extremities:??No edema or tenderness. Warm and well-perfused.?? Skin:??No rash or jaundice. Normal for ethnicity. Neurological/Psychiatric:??Appearance appropriate, mood and affect??stable. ?? OB Exam?? Dilation:??4 Effacement:??80 compound head and hand presentation OB Assessment Non Stress Test Baby: A Heart Rate: Rate??180 bpm Variability: ??moderate Acceleration: ??present 2 in 10 Deceleration:?variables Contractions: ??irreg uc's -> 2 in 10 mild to moderate to palp Assessment/Plan Assessment:??27yo @33+5 presenting to [facility] with abdominal pain and bright red bleeding that started earlier this morning. Arelis lr called from [facility] to PACU, she was found to be 4/80 with compound head and hand presenting. FHT tones with tachycardia in the 180s with accel and good variability, decision to proceed with section given high suspicion for placental abruption and concernfor well being. ?? section consent signed with patient. Risks of procedure discussed, including bleeding, infection, damage to surrounding structures (fallopian tubes, ovaries, bladder, bowel, blood vessels), risk of laceration at time of incision. Patient accepts these risks. She will accept a blood transfusion in the event of significant blood loss.? Hx of preeclampsia, prior , currently (O09.299):? - PreE labs obtained -??BP normotensive ?? Malpresentation of fetus (O32.9XX0):? Placental abruption (O45.90):? -- Admission to L&D -- CBC and hold -- Continuous monitoring -- consent signed - 2 units on hold ? OB History History?(4,0,0,4)? # 1 ?Baby 1 ?Outcome Date:??06/03/2011?Outcome or Result:??Vaginal ?Gest Age:??Fullterm ? Outcome:??Live ? Sex:??Female?Wt:?3430 g ?Hospital:??[place] ?? # 2 ?Baby 1 ?Outcome Date:??08/20/2013?Outcome or Result:??Vaginal ?Gest Age:??Fullterm ? Outcome:??Live ? Sex:??Male?Wt:?3572 g ?Hospital:??[place] ?? # 3 ?Baby 1 ?Outcome Date:??12/24/2014?Outcome or Result:??Vaginal ?Gest Age:??Fullterm ? Outcome:??Live ? Sex:??Female?Wt:?3232 g ?Hospital:??[place] ?? # 4 ?Baby 1 ?Outcome Date:??03/24/2022?Outcome or Result:??Vaginal ?Gest Age:??39 weeks 1 days ? Outcome:??Live ? Sex:??Male?Wt:?3494 g ?Maternal Complications:??Pre-eclampsia ? Complications:??None ?[facility] Labor:??13 hr 26 min ?Hospital:??[facility] Labs Labs Labs & Tests AFP Result: 37.8 (09/22/22) Antibody Screen: Negative (01/05/23) Blood Type: O Positive (01/05/23) Creatinine-Blood: 0.6 mg/dL (01/05/23) Down Syndrome Maternal Age Risk: 1 IN 782 (09/22/22) Glucose 50 Gm, +60 Minutes: 104 mg/dL (12/19/22) Hct:??29.5 %??Low (01/06/23) Hepatitis B Surface Antigen: NEGATIVE (07/07/22) Hepatitis C Ab: NEGATIVE (07/07/22) Hgb:??9.1 Gm/dL??Low (01/06/23) HIV 4th Generation Ab-Ag Result: NEGATIVE (07/07/22) Interpretation: (NOTE) (09/22/22) RPR Titer Result: NOT INDICATED (12/19/22) Rubella IgG Ab: EQUIVOCAL (07/07/22) Syphilis Screen by STEPHANIE: NEGATIVE (12/19/22) Trisomy 18 Screen Risk Estimate: <1 IN 5000 (09/22/22) Urine Culture: Urine Culture (11/21/22) Problem List Active Active Problem List Hx of preeclampsia, prior , currently : (Medical) Obese class II: (Medical) : (Obstetric) (05/08/22) Rubella non-immune status, antepartum: (Medical) Procedure/Surgical History delivery only;: 01/05/23 Vaginal delivery Home Medications Aspirin: 162 mg = 2 tablet, By Mouth, Daily Doxylamine: 25 mg = 1 tablet, By Mouth, Daily at bedtime, PRN (Nausea) Ferrous Sulfate: 325 mg = 1 tablet, By Mouth, 2 times a day Multivitamin, : 1 tablet, By Mouth, Daily Ondansetron: 4 mg = 1 tablet, By Mouth, Every 6 hours, PRN (Nausea & Vomiting) Pyridoxine: 50 mg = 1 tablet, By Mouth, Daily Allergies Peanuts??(Shrimp eel) Shrimp Social History Alcohol Use: Never. Electronic Cigarette/Vaping Electronic Cigarette Use: Never. 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 Highest education level: High school or GED. Exercise Self assessment: Good condition. Regular exercise: Yes. Exercise frequency: Daily. Exercise type: Walking. Home/Environment Living situation: Home/Independent. Lives with: Children, FOB -- [place] . DCF involvement: None. Nutrition/Health Diet: Regular. Sexual Sexually involved in last 6 months: Yes. Gender identity: Identifies as female. Self described orientation: Straight or heterosexual. Substance Abuse Use: Never. Tobacco Use: Never (less than 100 in lifetime). Family History Mother: Thyroid disorder Father: Diabetes mellitus type 2; Hypertension; Kidney stone Sister: Eczema Brother: Respiratory disease Other: Autism Plan No Data Found * Elsa PEDRO, Kaylin Limon: PERFORM Event Display: History and Physical Hospital Authored Date: Attending Attestation: I have seen and evaluated this patient. I have discussed the case and its management with the resident and agree with the findings and plan as documented in the resident???s note. EKG study * Event Display: ECG 12-Lead Authored Date: Please click on pdf link to open report * Event Display: ECG 12-Lead Authored Date: Ventricular Rate: 62 BPM Atrial Rate: 62 BPM P-R Interval: 138 ms QRS Duration: 80 ms Q-T Interval: 374 ms QTC Calculation(Bazett): 379 ms P [place]: 42 degrees R [place]: 51 degrees T [place]: 35 degrees Normal sinus rhythm Normal ECG No previous ECGs available Confirmed by CELESTE PEDRO [facility] ([id number]) on 01/08/2023 6:20:02 PM [place]: CELESTE PEDRO,[facility] Progress note * Anitha Wright RN: PERFORM, SIGN, VERIFY Event Display: Progress Note Hospital Authored Date: Patient: HUGH CARMICHAEL Age: 27 years Sex: Female : 1995 Associated Diagnoses: None Author: Anitha Wright RN OB stable upon discharge. Incision C/D/and well approximated, no s/sx of infection noted. Patient enrolled into babyscripts. New cuff given to patient and explained how to sync blood pressure readings into cell phone. Patient educated on warning signs, care, and need for follow up appointment. Pt expressed understanding. Medications and prescriptions reviewed. Pt instructed on importance of leaving identification band on while remaining in NICU. NICU contactinformation given. * Anitha Wright RN: PERFORM, SIGN, VERIFY Event Display: Progress Note Hospital Authored Date: Patient: HUGH CARMICHAEL Age: 27 years Sex: Female : 1995 Associated Diagnoses: None Author: Anitha Wright RN OB stable. Fundus firm and lochia is mild. Pt reports no clots or saturating a frankie pad in an hour.+ voiding, + flatus. PT OOB and ambulating frequently to NICU to visit with . Pain has been well controlled thus far this shift, pt educated on pain management and expresses understanding. PT seen by social work d/t EPDS scoring. Per social work patient okay to be discharged. Waiting for providers discharge orders. Call severino within reach, able to make needs known. Will continue to monitor pt. See CIS for full assessment. * Kira Houser RN: PERFORM, SIGN, VERIFY Event Display: Progress Note Hospital Authored Date: Patient: HUGH CARMICHAEL Age: 27 years Sex: Female : 1995 Associated Diagnoses: None Author: Kira Houser RN Findings Patient alert and oriented times three, no sob nor resp distress noted, fundus firm, down with mildlochia. Abdomen non distended, + bowel sounds all 4 quadrants Patient denies passing clot or saturating the pad / hour. Patient reports moderate pain, pain Meds administered accordingly, baby in NICU, safety precaution in place, will continue to monitor. Problem Related to Alteration in Comfort : Alteration in Comfort/new 01/08/2023 20:00 EDT Alteration in Comfort Related to Surgery, Other: Goals & Outcomes: Comfort Pt will report acceptable level of comfort & pain control, Pt will state importance of adhering to pain strategy regime, Pt will demonstrate necessary skills to manage pain, Non-verbal indicators will indicate comfort/pain control Interventions Implemented: Comfort Assess pain using appropriate pain scale/tools BH Goals/Interventions, Comfort Yes Comfort, Problem Start 01/05/2023 19:30 Reviewed plan with, Comfort Patient Patient Progression, Comfort Pt progressing according to plan Comfort, Problem Ongoing Yes . Note * Iván Menchaca: PERFORM Event Display: Care Team Progress Note Authored Date: Patient: ??HUGH CARMICHAEL ? Age:??27 Years?Sex:??Female?:??1995?? Subjective Mother discharging, baby staying in NICU.?? Mother with her 4 young children preparing to leave.?? Has been pumping q3 hours Assessment/Plan Routine??discharge for NICU/CCN mother ? Pumping frequency ? Hand expression progress before and after pump session ? Engorgement and/or lymphatic massage education?Collecting bottles and labels through NICU/[facility] prior to discharge ? Confirming family has a personal pump ?Educating patient on switching to maintenance mode once home if they are renting a [employer] pump---mother considering renting [employer], gave [employer] for home.?? Briefly explained how to use.?? Let mother know when she visits baby she can page LC and she will bring demo pump for further education OB Summary : 5 Parity: 5 . Weight: 2.09 kg Date, Time of : 01/05/23 15:11:00 EGA at Documented Date, Time: 33W 5D Gender: Female Weight at Delivery Delivery Type: , low transverse OB History History?(4,1,0,5)? # 1 ?Baby 1 ?Outcome Date:??06/03/2011?Outcome or Result:??Vaginal ?Gest Age:??Fullterm ? Outcome:??Live ? Sex:??Female?Wt:?3430 g ?Hospital:??[place] ?? # 2 ?Baby 1 ?Outcome Date:??08/20/2013?Outcome or Result:??Vaginal ?Gest Age:??Fullterm ? Outcome:??Live ? Sex:??Male?Wt:?3572 g ?Hospital:??[place] ?? # 3 ?Baby 1 ?Outcome Date:??12/24/2014?Outcome or Result:??Vaginal ?Gest Age:??Fullterm ? Outcome:??Live ? Sex:??Female?Wt:?3232 g ?Hospital:??[place] ?? # 4 ?Baby 1 ?Outcome Date:??03/24/2022?Outcome or Result:??Vaginal ?Gest Age:??39 weeks 1 days ? Outcome:??Live ? Sex:??Male?Wt:?3494 g ?Maternal Complications:??Pre-eclampsia ? Complications:??None ?[facility] Labor:??13 hr 26 min ?Hospital:??[facility] ?? # 5 ?Baby 1 ?Outcome Date:??01/05/2023?Outcome or Result:??, low transverse ?Gest Age:??33 weeks 5 days ? Outcome:??Live ? Sex:??Female?Wt:?2089 g Active Problem List Active Problem List Hx of preeclampsia, prior , currently : (Medical) Obese class II: (Medical) Rubella non-immune status, antepartum: (Medical) Home Medications Acetaminophen: 650 mg = 2 tablet, By Mouth, Every 6 hours, PRN (for pain) Docusate: 100 mg = 1 tablet, By Mouth, 2 times a day, PRN (for constipation) Ibuprofen: 600 mg = 1 tablet, By Mouth, Every 6 hours Oxycodone: 5 mg = 1 tablet, By Mouth, Every 6 hours, PRN (as needed for pain) Polyethylene Glycol 3350: 17 Gm, By Mouth, Daily, dissolve in water before taking Simethicone: 80 mg = 1 tablet, Chew, 4 times a day, PRN (as needed for gas) Medications Medications (8) Active SCHEDULED: (4) Acetaminophen 325 mg Tablet (Acetaminophen Tablet) ??650 mg, By Mouth, Every 4 hours Docusate Sodium 100 mg Capsule (Docusate Sodium Capsule) ??100 mg 1 capsule, By Mouth, 2 times a day Famotidine 20 mg Tablet (famotidine 20 mg oral tablet) ??20 mg, By Mouth, 2 times a day Ibuprofen 800 mg Tablet (Ibuprofen Tablet) ??800 mg, By Mouth, Every 8 hours CONTINUOUS: (1) Lactated Ringers (1000 mL) Cont IV 1,000 mL (Lactated Ringers 1,000 mL) ??1,000 mL, IV Infusion, 125 mL/hr PRN: (3) Ondansetron 2mg/mL Inj (2mL Vial) (Ondansetron Inj) ??4 mg, IV Push, Once OxyCODONE 5 mg IR Tablet (OxyCODONE IR Tablet) ??5 mg, By Mouth, Every 3 hours Simethicone 80 mg Chewable Tablet (Simethicone Tablet) ??80 mg, Chew, 3 times a day * Anitha Wright RN: PERFORM Event Display: Discharge/Transfer Note Hospital Authored Date: [id number] Nursing Discharge Note Entered On: 01/09/2023 11:40 EDT Performed On: 01/09/2023 11:39 EDT by Anitha Wright RN Nursing Discharge Note 2 Discharge Time : 01/09/2023 11:40 EDT Discharge Level of Care at Discharge : Home/Fdc/Foster Care Patient Left Unit Via : Ambulatory Patient Accompanied Off Unit with : Significant other DC Instructions Provided & Signed by Pt : Yes Patient Understands D/C Instructions : Yes Patient Instructions Discharge Signed : Yes Did Pt have Specialty Bed or Wound Vac : No Anitha Wright RN - 01/09/2023 11:39 EDT * Shaquille Galan MD, Courtney: MODIFY, MODIFY, MODIFY, PERFORM Event Display: Discharge/Transfer Note Hospital Authored Date: [id number] Patient: ??HUGH CARMICHAEL ? Age:??27 Years?Sex:??Female?:??1995?? Admit Date Admission Date: 01/05/2023 Discharge Date 01/09/2023 OB Reason for Admission OB Reason for Admission?? No qualifying data available. [facility] Hospital Course 27yo @33+5 presenting to [facility] with abdominal pain and bright red bleeding that started earlierthis morning. Given high concern for abruption she underwent emergent section. Uncomplicated surgery with QBL 540 ml. Remaining of course was uncomplicated however she ruled in for gHTN. She remained normotensive and preE labs were normal. She was complaining of chest pain and EK G was normal. ?? On day of discharge: Patient is feeling well. States her pain is well controlled with acetaminophen, ibuprofen, and oxycodone as needed. Her lochia is like a light period. She is ambulating,voiding spontaneously s/p velez??, and tolerating regular diet. Passing??flatus,??has not yet had a bowel m ovement.??Pumping as baby is in NICU. Denies headache, visual changes, chest pain, shortness of breath, abdominal pain, leg swelling, nausea, or vomiting. Objective/Physical Exam on Day of Discharge Vitals & Measurements T:??97.4?F?? HR:??71??(Peripheral)?? RR:??17?? RR:??17?? RR:??17?? BP:??131/86?? SpO2:??98%?? WT:??82.9??kg?? General: Well-appearing woman in no acute distress. Lung: Normal work of breathing, able to speak in full sentences. CV: Regular rate and non-tachycardic. Abdomen: Soft, non-distended, appropriately tender. Fundus firm and contracted below umbilicus. Well-healing Pfannenstiel skin incision covered with steri- strips, no surrounding erythema. PHOTOGRAPHIC PROCESS ATTENDANT:??Minimal lochia present. Psychiatric: The patient is alert and oriented with an appropriate mood and affect.?? Extremities: No pitting edema or rash. Assessment/Plan/Discharge Diagnosis Assessment:??27yo now P5, POD4 from?? section for placental abruption @33+5. Currently??meeting milestones. She is appropriate to be discharged ?? examination following delivery (Z39.2):? - Continue routine care - Diet: Regular - Rx sent home - Feeding plan: ?? Gestational HTN (O13.9): ??- Normotensive - PreE labs WNL - [x] Babyscripts on discharge ?? Placental abruption (O45.90):? . ?? Care: monitoring for hypertension Future Appointments Thursday 2:00 PM EDT ?? With: Adelia Judge CNM Where: [facility] [employer] [address] [place] [id number]- Status: Pending Delivery Summary Delivery Summary Maternal Information ??Delivery Information ?Gestational Age at Delivery: ??33W 5D ?Blood Loss - Quantitative: ??540 mL ? Baby A ??Delivery Information ?Delivery Type: ??, low transverse ?Reason for : ??Abruption ?Date, Time of : ??01/05/23 15:11:00 ?Delayed Cord Clamping: ??Yes ?Placenta Delivery Date/Time: ??01/05/23 15:12:00 ?Placenta Delivery Method: ??Assisted ?Placenta Appearance: ??Other: Abruption with clots ?Placenta to Pathology: ??Yes ??Care Team ?Time NICU Team Called: ??01/05/23 15:07:00 ??Labor Information ? monitoring: ??External monitor ?? Information ? Outcome: ??Live ? Position: ??Occiput posterior ? Weight: ??2.090 kg ? Score 1 minute: ??8 ? Score 5 minute: ??9 ? Score 10 minute: ??9 ?Transferred To: ??NICU ?Umbilical Cord Description: ??3 vessel cord ?Cord Blood pH drawn: ??Arterial, Venous ? Complications: ??Placental abruption ?Gender: ??Female ? Procedures Performed Section Primary ? Discharge Medications ???Acetaminophen (Tylenol 325 mg oral tablet)???Docusate (docusate sodium 100 mg oral tablet)???Ibuprofen (ibuprofen 600 mg oral tablet)???Oxycodone (oxyCODONE 5 mg oral tablet)???Polyethylene [id number] (MiraLax oral powder for reconstitution)???Simethicone (simethicone 80 mg oral tablet, chewable) Stop taking these medications ???Aspirin (aspirin 81 mg oral delayed release tablet)???Doxylamine (Unisom 25 mg oral tablet)???Ferrous Sulfate (ferrous sulfate 325 mg oral enteric coated tablet)???Multivitamin, ( Multivitamins with Folic Acid 1 mg oral tablet)???Ondansetron (ondansetron 4 mg oral tablet, disintegrating)???Pyridoxine (Vitamin B6 50 mg oral tablet) Immunizations during Hospitalization Vaccine Date Status Measles/Mumps/Rubella Virus Vaccine - Not Given Comments : Patient Refuses Measles/Mumps/Rubella Virus Vaccine - Not Given Comments : Patient Refuses tetanus/diphtheria/pertussis, acel(Tdap) 12/30/2021 Given Contraception None ? Feeding Method Feeding Method: , Pumping (01/05/23 16:08:00) Patient Instructions Call your doctor if: you note fever of 100.4 or greater, heavy vaginal bleeding, foul-smelling vaginal discharge, difficulty or burning with urination, nausea and vomiting with inability to tolerate food, pain not controlled by your prescribed medications, redness/swelling/drainage at incision(s), shortness of breath or chest pain. ??- Do not drive while taking narcotics. Do not drive until cleared by your doctor. ??- Avoid lifting anything 10bs or greater for 2 weeks/cleared by doctor. ??- Do not put anything in the vagina. No intercourse, tampons, or douching until cleared by doctor. ??- Stairs are OK but avoid multiple trips and go slowly. ??- Walk as often as you are able. ??- Continue your stool softeners (examples: colace/docusate, senna, miralax) until no longer taking narcotics and stools are regular. ??- Shower as usual after 24 hours. Remove Steri-Strips when they start to peel off, or after 5 days. Do not scrub the incision. Pat the skin dry. * Stephanie Luna DO: PERFORM Event Display: Discharge/Transfer Note Hospital Authored Date: [id number] I have seen and evaluated pt and agree with resident documentation.?? Discharged home in good and stable condition. ?? Stephanie Luna DO 01/09/2023 10:48:26 * Anitha Wright RN: PERFORM Event Display: Patient Education/Instruction Authored Date: [id number] Inpatient Adult Discharge Instructions [address] [address] Name: HUGH CARMICHAEL : 1995 Visit: 01/05/2023 13:52:00 Current Date: 01/09/2023 10:46 Account: [id number] Inpatient Adult Discharge Instructions We would like to thank you for allowing us to assist you with your healthcare needs. The following includes patient education materials and information regarding your injury/illness. Our entire staffstrives to provide an excellent experience for our patients and their families. PLEASE ENSURE YOU FOLLOW-UP PER THE INSTRUCTIONS BELOW! ?? YOUR OPINION IS IMPORTANT TO US! Please complete the survey you may receive by mail or email. Your feedback will be used to make improvements to the healthcare experiences of our patients and their families. Surveys are administered by [employer] ?? If further treatment with your primary care physician or another doctor is recommended, it is important for you to keep the appointment. Call your primary care physician or return to the Emergency Department immediately if your condition worsens, fails to improve, or new symptoms develop. If you need to find a doctor, you can call [facility] [employer] Direct for a referral at [phone] or toll free at [phone]) or log in to [email or web address].. ?? You can view and manage your care through the patient portal or by using a health care sandra of your choosing. [employer] is a website that allows you to securely view your medical information including your hospital discharge summary, office visit summaries, medications and follow-up visits. You can also request appointments, renew medications, and request access to your medical information using a health care sandra of your choosing, or just ask a question. You can enroll at [email or web address] or register during your next office visit. You have been discharged from [facility], Patient Care Unit: WIN2. If you have any questions regarding these instructions after you leave, please call us and we will be happy to assist you. [facility] Your Care Team Attending Physician Carley PEDRO, Stephen Consulting Providers Elsa PEDRO, Kaylin Gallardo MD, Olvin Discharging Providers Shaquille Galan MD, Courtney Reason for Admission PREG REFUGIO 02 18 23 SPOTTING ABD PAIN Your Diagnosis Placental abruption Malpresentation of fetus Hx of preeclampsia, prior , currently examination following delivery Gestational HTN Chest pain Tests Performed Below is a partial list of the tests performed during your hospitalization. You may have had other tests and procedures not included in this list. Please discuss all test results with your provider. ALT AST CBC CBC w/ Differential Cord Blood Gas Creatinine Fibrinogen HOLD BLUE TUBE HOLD LAVENDER TUBE INR PTT Type and Screen Urine Protein/Creatinine Ratio Primary Care Provider Ally Voss MD [facility] Directive Health Care Proxy on File No Discharge Vitals Temperature: 97.5 DegF Weight: 82.9 kg Pulse Rate: 56 bpm ?? Respiratory Rate: 18 br/min ?? Systolic Blood Pressure: 138 mm Hg ?? Diastolic Blood Pressure:??89 mm Hg??High ?? Oxygen Saturation: 100 % ?? Studies Pending All tests and labs ordered during this hospital stay have been completed unless listed below. Please discuss all pending results with your provider listed above in these instructions. ?? COVID-19 (2019 Novel Coronavirus) PCR Hold Gel Top Tube (HOLD GEL TUBE) Pathology Tissue Request () RBCs on Hold What to do next Instructions From Your Doctor Call your doctor if: you note fever of 100.4 or greater, heavy vaginal bleeding, foul-smelling vaginal discharge, difficulty or burning with urination, nausea and vomiting with inability to tolerate food, pain not controlled by your prescribed medications, redness/swelling/drainage at incision(s), shortness of breath or chest pain. ??- Do not drive while taking narcotics. Do not drive until cleared by your doctor. ??- Avoid lifting anything 10bs or greater for 2 weeks/cleared by doctor. ??- Do not put anything in the vagina. No intercourse, tampons, or douching until cleared by doctor. ??- Stairs are OK but avoid multiple trips and go slowly. ??- Walk as often as you are able. ??- Continue your stool softeners (examples: colace/docusate, senna, miralax) until no longer taking narcotics and stools are regular. ??- Shower as usual after 24 hours. Remove Steri-Strips when they start to peel off, or after 5 days. Do not scrub the incision. Pat the skin dry. Discharge Orders Scheduled Follow-Up Appointments Thursday 2:00 PM EDT ?? 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 Discharge Medications HUGH CARMICHAEL :1995 Visit Date:01/05/2023 Medications: Please continue your medications until treatment is completed or stopped by your provider. Medications not listed below should be discontinued. Discuss any questions related to medications with your provider. What How Much When Instructions Next Dose New Acetaminophen (Tylenol 325 mg oral tablet) 2 tab(s) Oral Every 6 hours as needed for for pain Pickup at [facility]/pharmacy #0693 2pm New Docusate (docusate sodium 100 mg oral tablet) 1 tab(s) Oral Twice a day as needed for for constipation Pickup at [facility]/pharmacy #0693 8pm New Ibuprofen (ibuprofen 600 mg oral tablet) 1 tab(s) Oral Every 6 hours Pickup at [facility]/pharmacy #0693 6pm New Oxycodone (oxyCODONE 5 mg oral tablet) 1 tab(s) Oral Every 6 hours as needed for as needed for pain [facility] 2pm New Polyethylene Glycol 3350 (MiraLax oral powder for reconstitution) 17 gram Oral Daily dissolve in water before taking ?? Pickup at [facility] #[facility] daily New Simethicone (simethicone 80 mg oral tablet, chewable) 1 tab(s) Chew 4 times a day as needed for as needed for gas Pickup at [place] [address] after meals Pharmacy Information [place] [address]: [address] [place] [id number] [phone] ?? What How Much When Comments Stop Taking Aspirin (aspirin 81 mg oral delayed release tablet) 2 tab(s) Oral Daily Stop Taking Doxylamine (Unisom 25 mg oral tablet) 1 tab(s) Oral Daily at Bedtime as needed for Nausea Stop Taking Ferrous Sulfate (ferrous sulfate 325 mg oral enteric coated tablet) 1 tab(s) Oral Twice a day Stop Taking Multivitamin, ( Multivitamins with Folic Acid 1 mg oral tablet) 1 tab(s) Oral Daily Stop Taking Ondansetron (ondansetron 4 mg oral tablet, disintegrating) 1 tab(s) Oral Every 6 hours as needed for Nausea & Vomiting Stop Taking Pyridoxine (Vitamin B6 50 mg oral tablet) 1 tab(s) Oral Daily Duration: 60 Days Test Results Below is a partial list of the most recent Laboratory test results done prior to this discharge. You may have had other tests and procedures not included in this list. Please discuss all test resultswith your provider. RBC Available - RE (01/05/2023) RBC Unit ID - [id number] (01/05/2023) ALT (01/07/2023) ???ALT (SGPT) - 10 units/L AST (01/07/2023) ???AST (SGOT) - 18 units/L CBC (01/07/2023) ???WBC - 10.3 k/mm3???RBC - 3.71 m/mm3???Hgb - 9.3 Gm/dL???Hct - 30.5 %???MCV - 82.2 femtoliters???MCH - 25.1 pg???MCHC - 30.5 g/dL???Platelet Count - 140 k/mm3???RDW-SD - 44.9 femtoliters???MPV - 13.7 femtoliters???Nucleated RBC (Automated) - 0.0 #/100 WBC'S???Abs. NRBC - 0.0 k/mm3 CBC w/ Differential (01/06/2023) ???WBC - 13.0 k/mm3???RBC - 3.62 m/mm3???Hgb - 9.1 Gm/dL???Hct - 29.5 %???MCV - 81.5 femtoliters???MCH - 25.1 pg???MCHC - 30.8 g/dL???Platelet Count - 108 k/mm3???RDW-SD - 43.3 femtoliters???MPV - 13.4 femtoliters???Nucleated RBC (Automated) - 0.0 #/100 WBC'S???Abs. NRBC - 0.0 k/mm3???Abs. Neut - 9.7 k/mm3???Abs. Lymph - 2.1 k/mm3???Abs. Collin - 1.0 k/mm3???Abs. Eo - 0.1 k/mm3???Abs. Baso - 0.0 k/mm3???Neut % - 74.1 %???Lymph % - 16.4 %???Collin % - 7.6 %???Eos % - 1.1 %???Baso % - 0.3 %???Imm Gran - 0.5 %???Abs. Imm Gran - 0.1 k/mm3 Cord Blood Gas (01/05/2023) ???pH - 7.35???pCO2 - 35 mm Hg???pO2 - 36 mm Hg???Bicarbonate, Estimated - 19 mmol/L???Specimen Type - Blood Gas - VENOUS Creatinine (01/07/2023) ???Creatinine-Blood - 0.7 mg/dL???Estimated GFR Creatinine - 122 ML/MIN/1.73 M2 Fibrinogen (01/05/2023) ???Fibrinogen - 439 mg/dL HOLD BLUE TUBE (01/05/2023) ???Hold Blue Top - SPECIMEN DISCARDED AFTER 4 HOURS. HOLD LAVENDER TUBE (01/05/2023) ???Hold Lavender Top - SPECIMEN DISCARDED AFTER 24 HOURS. INR (01/05/2023) ???INR - 1.0???Protime (PT) - 10.2 seconds PTT (01/05/2023) ???APTT - 23.2 seconds Type and Screen (01/05/2023) ???Blood Type - O Positive???Antibody Screen - Negative Urine Protein/Creatinine Ratio (01/07/2023) ???Protein, Total Urine Random - 11 mg/dL???TP/Cr Ratio - 0.08???Creatinine, Urine - 141.2 mg/dL Allergies (NKA means No Known Allergies) Peanuts??(Shrimp eel) Shrimp Problems Active Problems??(4) Hx of preeclampsia, prior , currently ?? Obese class II? Rubella non-immune status, antepartum?? Education Materials Below is the list of Educational Leaflet Providered with your Discharge Instructions. Valuables and Belongings I fully understand and agree that [facility] accepts no responsibility for all my personal property including clothing, toilet articles, radios, jewelry, dentures, hearing aids, rings, money, or any other property that is in my possession or is brought to me after admission. I understand certain valuables may be placed in a hospital safe for a short period of time. I understand that the hospital is not liable for loss or damage due to accident, fire, or other natural occurrence while said property is in the safe. I accept full responsibility for any personal property that I keep with me, and will not hold the hospital responsible in case of loss or disappearance. I acknowledge that i have been encouraged to send valuables and belongings home. ? Other Discharge Information ? Pulmonary Rehab Status?? Pulmonary Rehab Discharge Status?? Respiratory Rate: 18 br/min ? Common Emergency Awareness Tips IS IT A STROKE? Act FAST and Check for these signs: FACE Does the face look uneven? ARM Does one arm drift down? SPEECH Does their speech sound strange? TIME Call at any sign of stroke ?? Heart Attack Signs Chest discomfort: Most heart attacks involve discomfort in the center of the chest and lasts more than a few minutes, or goes away and comes back. It can feel like uncomfortable pressure, squeezing, fullness or pain. Discomfort in upper body: Symptoms can include pain or discomfort in one or both arms, back, neck, jaw or stomach. Shortness of breath: With or without discomfort. Other signs: Breaking out in a cold sweat, nausea, or lightheaded. Remember, MINUTES DO MATTER. If you experience any of these heart attack warning signs, call to get immediate medical attention! ?? Smoking can increase your chances of developing chronic health problems and can cause harmful effects to other family members in your house. If you smoke, you are strongly encouraged to quit. Please call [facility] [employer] at [phone] or [phone] ([phone]) or log in to [email or web address] for referrals to smoking cessation programs. ?? Suicide & Crisis Lifeline is available 09/02 if you or someone you know needs to find a reason to keep living. By calling 994 you'll be connected to a skilled, trained counselor at a crisis center in your area. INPATIENT DISCHARGE INSTRUCTIONS SIGNATURE PAGE HUGH CARMICHAEL Location:[facility] Registration Date and Time:01/05/2023 13:52 EDT Primary Care Physician: Ally Voss MD, Attending Physician: Carley PEDRO, Stephen, I SIENNAEZRAHUGH, have received the above patient education materials/instructions and have verbalized understanding. If ambulance or transport services are being used I further acknowledge being givena choice of service. ?? If you need to contact me, please call me at this number: . Patient/Yarding And Folding Machine Operator Name: Patient/Yarding And Folding Machine Operator Signature: Relationship to Patient: Witness Name/Signature: Date: * Anitha Wright RN: PERFORM Event Display: Patient Education Leaflets Authored Date: [id number] OB [facility]- Discharge Instructions ?? 209 Discharge Care Instructions for the New Mom and Baby Please take a few moments to read through these helpful instructions before you leave the hospital.?? Your nurse will be glad to answer any questions you may have.?? You can also find this and more information throughout the purple Becoming a Family booklet, [facility] New Beginnings Guide and the Consultation Services Guide given to you after the of your baby.?? You may also phone our nurses stations if you have further questions.?? [facility]:?? First Floor ([phone]), Second Floor ([phone]).?? Please call your provider if you have any questions or concerns?? before your next appointment. For ongoing support please ???Like?? us on our Facebook page ???[facility]???[facility] New Beginnings?? andsign up for our email newsletter at [email or web address].?? News and information will besent to you until your baby???s third birthday. Instructions for the New Mother Activity: For the next 2 weeks at home ??? no heavy lifting, avoid unnecessary stair climbing, and no driving(especially if you are taking medicine that may make you sleepy or feel that you are sleep deprived).?? For the next 4-6 weeks - no tampons, no douches, no sexual intercourse. Use your frankie bottle to rinse your perineum until your vaginal flow stops.?? If you have stitches in your bottom, they generally dissolve within 7-10 days.?? Apply Tucks/witch shona pads until your soreness subsides.?? Use your bathroom at home every 3 to 4 hours, rinse, and change your pads. Warm showers feel great on achy muscles, sore backs and sore bottoms. Exercise: Walking is the best form of exercise.?? Wait until your follow up appointment with your provider in4-6 weeks before engaging in more strenuous activity. Diet: Drink plenty of fluids to avoid constipation and to help support your recovery. Eat plenty of iron rich foods such as red meat, iron fortified cereals like Total and Cream of Wheat, raisins, prunes, greens and spinach.?? These will help to build your blood count back up as all women lose some blood after delivery.?? Also add foods rich in Vitamin C such as strawberries, oranges, papayas, kale and severino peppers. Continue to take your vitamins if you are .?? If you are not follow the instructions of your provider.?? If you were prescribed iron supplements such as ferrous sulfate, it is important to continue these until your doctor or disabilities caregiver tells you to stop. Breast Care for Nursing Mothers: Wear a comfortable fitting, supportive nursing bra.?? An underwire bra is not recommended. Express drops of breast milk and rub over your nipples and areola (brown area) before and after each feeding to protect and heal sensitive skin and then air dry your nipples.?? If you are experiencing any soreness, you may purchase nipple cream such as TenderCare or Lansinoh.?? Use it in the following manner:?? finish your feeding or pumping session, self-express colostrum onto your nipple and air dry, apply the nipple cream to the nipple and areola.?? Use only small amounts for best results. If you are having difficulty getting the baby to latch onto the breast due to swelling of the areola, try applying pressure with your fingers for a couple of minutes above and below your nipple and walk your fingers outward softening the area and pushing the swelling away.?? This technique is knownas reverse pressure softening.?? For demonstrations of this and other techniques such as the [place] Hand Expression technique, please refer to the resources section of the Consultation Services Guide that you received from services. When your milk first comes in, usually within 3 to 5 days after delivery, you may experience engorgement.?? Your breasts may become swollen and very tender.?? Cold compresses work great to help with discomfort and reduce swelling. It will get better in a couple of days.?? Continue to nurse your baby frequently.?? Call [facility]???s Consultation Service at [phone], press 1 to schedule an outpatient appointment or press 3 and a independent consultant will return your call that day or the next if you call after 3pm. Breast Care for Bottle Feeding Mothers: Engorgement may occur within the first week after delivery.?? Your breasts may become hard and verytender.?? A cool compress of cleaned raw green cabbage leaves applied to the breast and changed as leaves wilt has been proven helpful for many women.?? Ice packs or frozen bags of peas also work nicely to ease the discomfort.?? The soreness will only last a couple of days. Keep your back turned to the water while showering to decrease breast stimulation. Wear a snug fitting bra such as a sports bra. Incision Care Following Tubal or Section: You may shower as directed by your doctor or disabilities caregiver.?? Pat your incision dry with a clean towel.??You will not need a bandage after the first day. Call your doctor or disabilities caregiver with any signs of infection such as a hard, hot swollen tender incision, especially if the skin around the incision looks pink or red.?? Yellow drainage with an odor may also be a sign of infection to report. Call your doctor or disabilities caregiver if the incision begins to separate. If you have steri-strips on the incision, they will likely fall off in the first week.?? If they have not fallen off by 10 days after delivery, you may remove them. Control: Your doctor or disabilities caregiver will discuss control methods with you when you are discharged from thehospital or at your checkup.?? Be sure to let your provider know if you are . You had a Paragard IUD placed on .?? This control method is effective for 10 years. You had a Liletta placed on .?? This control method is effective for up to 5 years. You had a Nexplanon placed on .?? This control method is effective for up to 3 years. You received a Depo Provera injection on .?? This control method is effective as longas you repeat it every 3 months.?? Schedule your next dose before . You have a prescription for control pills .?? It is important to take a pill everyday at around the same time of day for effective control protection.?? Pain Management: Cramping after is common and increases in strength with each baby you have.?? If you experience painful cramps, and have no allergies to acetaminophen (Tylenol) or ibuprofen (Motrin), you may continue to take these medications as you did in the hospital.?? Ibuprofen is also helpful with back aches following epidurals, perineal pain following a vaginal delivery, and moderate incisional pain after a section or a tubal ligation.?? If you experience gas distention, especially after surgery, you may take an over the counter medication called simethicone.?? Take these chewable tablets 4 times a day as needed and directed on the package.?? Keep moving.?? Walking or rocking in a chair, will help to move the gas along.?? Vero tea made with heated vero heide (instead of water) and a tea bag, stirred to dissolve carbonation (bubbles) is a helpful drink to soothe a gassy stomach. Warning Signs of a Problem to Notify Your Doctor or Protective Services Officer of: Heavy vaginal bleeding ??? which is soaking a pad every hour with bright red blood. Passing blood clots the size of an egg or larger. An incision that is not healing. A temperature greater than or equal to 100.4 especially if accompanied by any of the following symptoms ??? painful, frequent urination; extreme back or flank pain; lower belly pain with a foul smellto your vaginal flow; a red hard hot area on your breast.?? Severe headache that does not go away after taking acetaminophen or ibuprofen.?? A headache that changes your vision, including seeing spots or blurring. Right sided upper abdominal pain along the rib cage area. Pain in your legs that is warm and tender to the touch. depression signs may include ??? loss of interest in your baby, weepiness, difficulty focusing, weight loss with no appetite, exhaustion, feeling overwhelmed or anxious, feelings of despair, or thoughts of harming yourself or your baby.?? These symptoms are important and should be discussed with your doctor or disabilities caregiver. depression may develop over a period of time and needs prompt medical attention.?? Do not suffer in silence.?? In both the Becoming a Family booklet and the[facility] Guide there is a screening tool used to identify women at risk, called the [place] Scale which you have taken in the office prior to delivery and again during your hospital s yolanda.?? Three to four weeks after your delivery, and before your check with your provider, take this test and share your results with your provider.?? Be sure to mention any score of 10 or more.?? Many women, and even some partners, may experience the ???baby blues?? .?? This is a state of feeling overwhelmed and weepy.?? Discomfort from childbirth, hormonal changes, exhaustion, changes to your body and lifestyle are a few of the things that contribute to the highs and lows new parents go through.?? Don???t be afraid to ask your partner or family and friends for some help at home so you can get some rest and a few minutes to yourself.?? The blues will quickly pass. Personal Safety: Every person has the right to feel safe at home and live free from physical or emotional harm.?? Ifyou have suffered mental or physical abuse at home, you are not alone.?? There is help.?? Please call [employer] or the [employer] at [phone]. CARE Bathing: Give your baby a sponge bath until the cord falls off in about 1-3 weeks.?? It is not necessary to bathe your baby every day, usually every few days is sufficient. ??Keep the cord area dry.?? Some baby girls will have a small bloody vaginal discharge. No need to worry as this is normal. It is not necessary to use lotions on the baby???s skin.?? Powders and oils are not recommended.?? Babies often get rash on their skin which comes and goes quickly and does not require any special care.?? Diaper rash can be treated with a zinc oxide preparation such as Desitin or Balmex diaper cream. Circumcision Care: Your nurse will teach you how to care for your baby???s circumcision depending on the type of circumcision your doctor or disabilities caregiver performed.?? Most circumcisions require A&D ointment for about 4-5 days.?? Be generous with the amount of A&D used as this will prevent the diaper from sticking when you go to change it. If a plastibell circumcision was done, the plastic ring around the penis will fall off in a week orso. Diapers: After the 1st??few days, the baby will start wetting more often.?? A breast fed baby will wet about6-8 times a day once mom???s milk comes in ??? usually day 4 or 5.?? This is a good sign that the baby is getting plenty to eat.?? You may notice an orangey-pink stain in the diaper which is normal for the first few days. The baby???s first bowel movements are sticky, black and tarry.?? As the baby starts to feed more often over the next couple of days, the stool will change to a seedy yellowish green color and eventually a loose mustard like stool for a breast fed baby and a more formed yellow stool for a bottle fed baby. your Baby: ??Congratulations on deciding to breastfeed your baby! You are providing your baby with the most nourishing food source on the planet, your breast milk.?? Cues such as rooting, suckling, licking and fussing may be telling you that your baby is ready to eat ??? and it is time to offer your breasts. The first weeks following the are a time for you and your baby to learn.?? The baby may be sleepy the first day after with 8 to 12 attempts ??? including 2 to 4 good feedings.?? Over the next couple of days the baby will become more wakeful, feed 8 to 12 times a day and have more wet and poopy diapers.?? Cluster feeding, especially during the evening/night time, is normal. ?? Listen for swallowing sounds and watch the baby as they become more relaxed at the breast ??? both good signs that the baby is getting a good amount of milk.?? Refrain from smoking or eating edible marijuana while you are . Even though marijuana is legal in the state of [place],??it is harmful for your baby.??It stays in breast milk for along period of time and THC can be found in the baby's urine for up to 3 weeks. Second hand smoke can also increase the risk??of Sudden Syndrome / SIDS. ?? Nursing is wonderful but many moms and babies have some degree of difficulty with at first. Don???t give up!?? There are many resources available to help you overcome these temporary problems. Your pick up driver wants to hear from you if you are having difficulties and can offermany helpful suggestions.?? Some offices have consultants on staff. [facility]???s Consultation Service is available 7 days a week, 8am to 3pm at [phone].?? Press 1 to schedule an outpatient appointment.?? Press 3 to leave a message for the financial analysis consultant, a independent consultant will return your call that day or the next if you call after 3pm. Support Groups ??? [facility] offers free gatherings for moms and babies weekly.?? All groups meet at the [facility] Women???s 2nd??floor, typically in the [facility] Conference Room, Thursday???s 1 to 2 pm.?? [employer] is a worldwide organization with local community support, mother to mother support.?? Information can be found at https://www.lllusa.org Formula Feeding your Baby: Formula fed babies should eat every 3 to 4 hours.?? Look for cues that your baby is ready ??? such as rooting and sucking, licking and fussing.?? At the baby???s stomach is small and may take 10-15ml of formula.?? Over the next few days the baby will become more wakeful and feed more frequently, gradually increasing the amounts of formula taken at a feeding.?? Your pick up driver will provideinstructions on how to increase the amount.?? Refer to packaging for formula preparation directions, depending on the type of formula you purchase ??? powder, concentrate or ready to feed. Safety: ALWAYS REMEMBER - BACK TO SLEEP! Babies sleep safest on their backs.?? Every sleep.?? Every time.?? Every nap. Babies need a firm sleep surface with a tight fitting bottom sheet.?? NO loose bedding.?? NO pillows.?? NO bumper pads or rolls.?? NO heavy or fluffy blankets. NO stuffed toys. It is not safe for your baby to sleep in your bed, in a chair, or on a sofa.?? Your baby should notsleep with you or anyone else. Car Seat: Always place your baby in a rear facing car seat in the backseat of the car. Car seat inserts that come with the car seat can be used as they are crash tested with the seat.?? You should not buy additional inserts.?? Dress the baby in a weather appropriate outfit.?? Avoid bulky clothing such as snowsuits or jackets as the baby may squirm in the seat, loosening the shoulder straps and come out of the top of the harness if you need to brake hard or are in an accident.?? Once the baby issecured in the seat you can cover your little one with a blanket if needed.?? If your baby was bornprematurely, follow the directions given to you.?? If you have not already done so, check to make sure your car seat is installed correctly. Check with your local Fire and Police Department to see if they offer car seat inspections at a location close to you. Babies Can Move: ?? Never leave your baby unattended on any surface, raised or flat, or while bathing.?? They can squirm, fall or hurt themselves.?? Always fasten the safety belt when using an infantseat or swing ??? as they may lean forward and fall. Good Handwashing is the number one way you can protect the baby from too?? many germs and prevent infection.?? When family and friends visit ask that they wash their hands before holding your baby.??Also avoid crowds the first month of your baby???s life to protect from colds and flus. Shaking a baby out of frustration can cause severe and lasting damage, even to a baby.?? If you feel you are becoming angry or overwhelmed, place the baby in a safe place and walk away.?? Call a friend or family member.?? If they are not able to offer immediate help call the Parental Stress Hotline at?? , an anonymous 09/02 source of help. Warning Signs to notify your pick up driver of: Most babies develop a small amount of jaundice (a yellowish skin color) in the face and upper chest, by about 3 days of age.?? If the yellow color extends below the baby???s belly or if the baby is very sleepy and not feeding well, call your pick up driver. A rectal temperature of 100.4F as it could be a sign of infection. Projectile vomiting that continues with each feeding could indicate reflux or a problem with the formula. Extreme sleepiness or very fussy. Cold symptoms with nasal stuffiness, especially if the baby is having difficulty feeding. Constipation with hard stools. Blue or dusky color, call 911. If Your Baby Needs to Remain in the Hospital: Please leave your baby???s ID bracelets on if your baby needs to remain in the hospital after you are discharged home. The phone number to NICU is [phone]. The phone number to [facility] is [phone]. The phone number to [facility] is [phone]. moms should pump every 2-3 hours or 8-12 times in 24 hours.?? If unable to place the baby to breast, if you are having difficulty getting the baby to latch on, or if the baby remains inthe hospital after you are discharged ??? bring the pumped milk to the hospital, labeled with name,date and time.?? Carry it in a small cooler or diaper bag with an ice pack and bring it the next time you visit your baby.?? Consultation Services is available if you need to rent or purchase a pump or products.?? Call and leave a message at [phone] ??? press 3 and a independent consultant will return your call that day or the next if you call after 3pm. ? * Iván Menchaca: PERFORM Event Display: Care Team Progress Note Authored Date: [id number] Patient: ??HUGH CARMICHAEL ? Age:??27 Years?Sex:??Female?:??1995?? Assessment/Plan Per RN mother declines support at this time, she does not want to be disturbed.? OB Summary : 5 . Baby A - Weight: 2.09 kg Baby A - Date, Time of : 01/05/23 15:11:00 Baby A - Gender: Female EGA at Documented Date, Time: 33W 5D Weight at Delivery Baby A - Delivery Type: , low transverse OB History History?(4,0,0,4)? # 1 ?Baby 1 ?Outcome Date:??06/03/2011?Outcome or Result:??Vaginal ?Gest Age:??Fullterm ? Outcome:??Live ? Sex:??Female?Wt:?3430 g ?Hospital:??[place] ?? # 2 ?Baby 1 ?Outcome Date:??08/20/2013?Outcome or Result:??Vaginal ?Gest Age:??Fullterm ? Outcome:??Live ? Sex:??Male?Wt:?3572 g ?Hospital:??[facility] ?? # 3 ?Baby 1 ?Outcome Date:??12/24/2014?Outcome or Result:??Vaginal ?Gest Age:??Fullterm ? Outcome:??Live ? Sex:??Female?Wt:?3232 g ?Hospital:??[facility] ?? # 4 ?Baby 1 ?Outcome Date:??03/24/2022?Outcome or Result:??Vaginal ?Gest Age:??39 weeks 1 days ? Outcome:??Live ? Sex:??Male?Wt:?3494 g ?Maternal Complications:??Pre-eclampsia ? Complications:??None ?[facility] Labor:??13 hr 26 min ?Hospital:??[facility] Active Problem List Active Problem List Hx of preeclampsia, prior , currently : (Medical) Obese class II: (Medical) : (Obstetric) (05/08/22) Rubella non-immune status, antepartum: (Medical) Home Medications Acetaminophen: 650 mg = 2 tablet, By Mouth, Every 6 hours, PRN (for pain) Docusate: 100 mg = 1 tablet, By Mouth, 2 times a day, PRN (for constipation) Ibuprofen: 600 mg = 1 tablet, By Mouth, Every 6 hours Oxycodone: 5 mg = 1 tablet, By Mouth, Every 6 hours, PRN (as needed for pain) Polyethylene Glycol 3350: 17 Gm, By Mouth, Daily, dissolve in water before taking Simethicone: 80 mg = 1 tablet, Chew, 4 times a day, PRN (as needed for gas) Medications Medications (8) Active SCHEDULED: (4) Acetaminophen 325 mg Tablet (Acetaminophen Tablet) ??650 mg, By Mouth, Every 4 hours Docusate Sodium 100 mg Capsule (Docusate Sodium Capsule) ??100 mg 1 capsule, By Mouth, 2 times a day Famotidine 20 mg Tablet (famotidine 20 mg oral tablet) ??20 mg, By Mouth, 2 times a day Ibuprofen 800 mg Tablet (Ibuprofen Tablet) ??800 mg, By Mouth, Every 8 hours CONTINUOUS: (1) Lactated Ringers (1000 mL) Cont IV 1,000 mL (Lactated Ringers 1,000 mL) ??1,000 mL, IV Infusion, 125 mL/hr PRN: (3) Ondansetron 2mg/mL Inj (2mL Vial) (Ondansetron Inj) ??4 mg, IV Push, Once OxyCODONE 5 mg IR Tablet (OxyCODONE IR Tablet) ??5 mg, By Mouth, Every 3 hours Simethicone 80 mg Chewable Tablet (Simethicone Tablet) ??80 mg, Chew, 3 times a day * Palmira Blake RN: PERFORM Event Display: Care Team Progress Note Authored Date: Patient: ??HUGH CARMICHAEL ? Age:??27 Years?Sex:??Female?:??1995?? Subjective Mom declined a consult from today saying she received help from yesterday and did not feel she needed any more help from us at this time. OB Summary : 5 . Baby A - Weight: 2.09 kg Baby A - Date, Time of : 01/05/23 15:11:00 Baby A - Gender: Female EGA at Documented Date, Time: 33W 5D Weight at Delivery Baby A - Delivery Type: , low transverse OB History History?(4,0,0,4)? # 1 ?Baby 1 ?Outcome Date:??06/03/2011?Outcome or Result:??Vaginal ?Gest Age:??Fullterm ? Outcome:??Live ? Sex:??Female?Wt:?3430 g ?Hospital:??[facility] ?? # 2 ?Baby 1 ?Outcome Date:??08/20/2013?Outcome or Result:??Vaginal ?Gest Age:??Fullterm ? Outcome:??Live ? Sex:??Male?Wt:?3572 g ?Hospital:??[place] ?? # 3 ?Baby 1 ?Outcome Date:??12/24/2014?Outcome or Result:??Vaginal ?Gest Age:??Fullterm ? Outcome:??Live ? Sex:??Female?Wt:?3232 g ?Hospital:??[place] ?? # 4 ?Baby 1 ?Outcome Date:??03/24/2022?Outcome or Result:??Vaginal ?Gest Age:??39 weeks 1 days ? Outcome:??Live ? Sex:??Male?Wt:?3494 g ?Maternal Complications:??Pre-eclampsia ? Complications:??None ?[facility] Labor:??13 hr 26 min ?Hospital:??[facility] Active Problem List Active Problem List Hx of preeclampsia, prior , currently : (Medical) Obese class II: (Medical) : (Obstetric) (05/08/22) Rubella non-immune status, antepartum: (Medical) Home Medications Aspirin: 162 mg = 2 tablet, By Mouth, Daily Doxylamine: 25 mg = 1 tablet, By Mouth, Daily at bedtime, PRN (Nausea) Ferrous Sulfate: 325 mg = 1 tablet, By Mouth, 2 times a day Multivitamin, : 1 tablet, By Mouth, Daily Ondansetron: 4 mg = 1 tablet, By Mouth, Every 6 hours, PRN (Nausea & Vomiting) Pyridoxine: 50 mg = 1 tablet, By Mouth, Daily Medications Medications (7) Active SCHEDULED: (3) Acetaminophen 325 mg Tablet (Acetaminophen Tablet) ??650 mg, By Mouth, Every 4 hours Docusate Sodium 100 mg Capsule (Docusate Sodium Capsule) ??100 mg 1 capsule, By Mouth, 2 times a day Ibuprofen 800 mg Tablet (Ibuprofen Tablet) ??800 mg, By Mouth, Every 8 hours CONTINUOUS: (1) Lactated Ringers (1000 mL) Cont IV 1,000 mL (Lactated Ringers 1,000 mL) ??1,000 mL, IV Infusion, 125 mL/hr PRN: (3) Ondansetron 2mg/mL Inj (2mL Vial) (Ondansetron Inj) ??4 mg, IV Push, Once OxyCODONE 5 mg IR Tablet (OxyCODONE IR Tablet) ??5 mg, By Mouth, Every 3 hours Simethicone 80 mg Chewable Tablet (Simethicone Tablet) ??80 mg, Chew, 3 times a day Patient Care team information Care Team Personnel Name: Ally Voss MD Position: Reference Physician Member Role: PCP Address: Address: [address] [place] [address] Name: Rachana Kumar RN Position: S OB RN Member Role: Patient Care Provider Name: Anitha Wright RN Position: S OB RN Member Role: Patient Care Provider Care Team Related Persons Name: CHIRAG LOZOYA Address: [address] Address: [address] [address] Name: KAZ BLUE Address: [address] [address] Name: HUGH CARMICHAEL GIRL Address: [address] Address: [address] [address]
--- OUTSIDE RECORDS SUMMARY | 2023-08-18 17:13 | XMS_ITS | Continuity of Care Document ---
Author Name Unknown Organization [facility] Address [address] [place] [address]- Care Team Providers Care Advanced Practice Provider Name Role Phone Not on Staff, PCP Primary Care Physician Unavail able [place] [facility] [place] - 10/25/[address] [address] Allergies, Adverse Reactions, Alerts No Known Allergies Medications Colace sodium 100 mg oral capsule 100 mg, 1, capsule, By Mouth, 2 times a day, PRN, # 20 capsule, Refills 2, Tot. Refills 2, Maintenance, for constipation, 09/25/21 15:09:00 EST, Route to Pharmacy Electronically, [id number], Partial fill upon patient request if the prescriptio... Start Date: 09/25/21 Status: Ordered Multivitamins with Folic Acid 1 mg oral tablet 1 tablet, By Mouth, Daily, # 90 tablet, 3 Refills, Maintenance, 08/16/21 9:20:00 EST, Tablet, [id number], Partial fill upon patient request if the prescription is for a schedule II opioid drug., 1 tablet By Mouth Daily Start Date: 08/16/21 Status: Ordered Zofran 4 mg oral tablet 1 tablet = 4 mg, By Mouth, Every 8 hours, PRN as needed for nausea/vomiting, # 30 tablet, 1 Refills, Acute 10/26/21 15:00:00 EDT, 09/25/21 15:09:00 EST, Tablet, [id number], Partial fill upon patient request if the prescription is for a schedul... Start Date: 09/25/21 Stop Date: 10/26/21 Status: Ordered Zofran 4 mg oral tablet 1 tablet = 4 mg, By Mouth, Every 8 hours, PRN as needed for nausea/vomiting, # 24 tablet, 0 Refills, Maintenance, 09/10/21 11:11:00 EST, Tablet, [id number], Partial fill upon patient request if the prescription is for a schedule II opioid drug... Start Date: 09/10/21 Status: Ordered Problem List Condition Effective Dates Status Health Status Inform ant Obese class I(Confirmed) Active Obesity in (Confirmed) Active Social History Social History Type Response Smoking Status Never (less than 100 in lifetime) entered on: 08/16/21 Sex
--- OUTSIDE RECORDS SUMMARY | 2023-08-18 17:13 | XMS_ITS | Continuity of Care Document ---
Author Name Unknown Organization [facility] Address [address] [place] [address]- Care Team Providers Care Tour Director Name Role Phone Ally Voss MD Primary Care Physician [place] [facility] [place] 01/13/23 - 05/02/[address] [address] Discharge Disposition: A-D/C Home Attending Physician: Stephen [...] Reference Physician Member Role: PCP Address: Address: [address] [place] [address]- Care Team Related Persons Name: CHIRAG LOZOYA Address: [address] Address: home [address] [place] [address] [place] Name: MELVA LOZOYA Address: [address] Address: home [address] [address] [place] Name: RALEIGH BLUE Address: [address] [address]
--- OUTSIDE RECORDS SUMMARY | 2023-08-18 17:13 | XMS_ITS | Continuity of Care Document ---
Author Name Unknown Organization [facility] Address [address] [place] [address]- Care Team Providers Care Adventure Guide Name Role Phone Bipin PEDRO, Ally Primary Care Physician [place] [facility] [place](s): 12/10/21 - 01/09/[address] [address] Allergies, Adverse Reactions, Alerts Substance Reaction Severity Status Peanuts Shrimp eel Active Shrimp Active Immunizations Given and Recorded Vaccine Date Status Refusal Reason tetanus/diphtheria/pertussis, acel(Tdap) 12/30/21 Given Medications Colace sodium 100 mg oral capsule 100 mg, 1, capsule, By Mouth, 2 times a day, PRN, # 20 capsule, Refills 2, Tot. Refills 2, Maintenance, for constipation, 09/25/21 15:09:00 EST, Route to Pharmacy Electronically, [facility] #[id number], Partial fill upon patient [...] Mouth Daily Start Date: 08/16/21 Status: Ordered Problem List Condition Effective Dates Status Health Status Inform ant Abnormal first trimester screen(Confirmed) Active Obese class I(Confirmed) Active Obesity in (Confirmed) Active Social History Social History Type Response Smoking Status Never (less than 100 in lifetime) entered on: 08/16/21 Sex
--- OUTSIDE RECORDS SUMMARY | 2023-08-18 17:13 | XMS_ITS | Continuity of Care Document ---
Author Name Unknown Organization [facility] ter Address [address] [place] [address]- Care Team Providers Care Tobacco Buyer Name Role Phone Ally Voss MD Primary Care Physician [place] [facility] [place]17/[place] - 02/17/[address] [address] Discharge Disposition: A-D/C Home Attending Physician: Toshia Villanueva DO Admitting Physician: Toshia Villanueva DO Referring Physician: Toshia Villanueva DO Allergies, Adverse Reactions, Alerts Substance Reaction Severity Status Peanuts Shrimp eel Active Shrimp Active Immunizations Given and Recorded Vaccine Date Status Refusal Reason tetanus/diphtheria/pertussis, acel(Tdap) 12/30/21 Given Medications Colace sodium 100 mg oral capsule 100 mg, 1, capsule, By Mouth, 2 times a day, PRN, # 20 capsule, Refills 2, Tot. Refills 2, Maintenance, for constipation, 09/25/21 15:09:00 EST, Route to Pharmacy Electronically, [facility] #[id number], Partial fill upon patient request if [...] Mouth Daily Start Date: 08/16/21 Status: Ordered Tylenol 325 mg oral tablet 975 mg, Tablet, By Mouth, Every 6 hours, PRN for Pain , Moderate, Routine, 02/17/22 6:30:00 EDT Start Date: 02/17/22 Stop Date: 02/17/22 Status: Discontinued Problem List Condition Effective Dates Status Health Status Inform ant Abnormal first trimester screen(Confirmed) Active Obese class I(Confirmed) Active Obesity in (Confirmed) Active Vital Signs Most recent to oldest [Reference Range]: 1 2 Weight 81.1 kg (02/17/22 5:06 AM) Oxygen Saturation [94-100 %] 98 % (02/17/22 6:54 AM) 99 % (02/17/22 5:18 AM) Blood Pressure [90-138/55-84 mm Hg] 114/ 73mm Hg (02/17/22 6:54 AM) 115/76mm Hg (02/17/22 5:18 AM) Respiratory Rate [16-30 br/min] 16 br/mi n (02/17/22 8:55 AM) 17 br/min (02/17/22 5:18 AM) Temperature [96.8-100.4 DegF] 99.4 DegF (02/17/22 5:06 AM) Mode of Delivery (Oxygen) Room air (02/17/22 5:18 AM) Blood pressure sites Arm, right (02/17/22 5:18 AM) Temperature Route Oral (02/17/22 5:06 AM) Dry Weight 81.1 kg (02/17/22 5:06 AM) Weight Obtained Via Standing scale (02/17/22 5:06 AM) Dry Weight Obtained Via Standing scale (02/17/22 5:06 AM) Social History Social History Type Response Smoking Status Never (less than 100 in lifetime) entered on: 08/16/21 Sex
--- OUTSIDE RECORDS SUMMARY | 2023-08-18 17:13 | XMS_ITS | Continuity of Care Document ---
Author Name Unknown Organization [facility] Address [address] [place] [address]- Care Team Providers Care Director Print Name Role Phone Ally Voss MD Primary Care Physician Encounter [facility] [place] Date(s): 01/02/23 - 03/08/[address] [address]- Attending Physician: Not on Staff, Attending MD Allergies, Adverse Reactions, Alerts Substance Reaction [...] Reference Physician Member Role: PCP Address: Address: [address] [place] [address]- Care Team Related Persons Name: CHIRAG LOZOYA Address: [address] Address: home [address] [place] [address] [place] Name: MELVA LOZOYA Address: [address] Address: home [address] [address] [place] Name: RALEIGH BLUE Address: [address] [address]
--- OUTSIDE RECORDS SUMMARY | 2023-08-18 17:13 | XMS_ITS | Continuity of Care Document ---
Author Name Unknown Organization [facility] Address [address] [place] [phone]- Care Team Providers Care Manager Of Community Relations Name Role Phone Ally Voss MD Primary Care Physician Encounter [facility] [place] Date(s): 07/29/22 - 09/25/[address] [address]- Attending Physician: Stephanie Verma CNM Admitting Physician: Stephanie Verma CNM Allergies, Adverse Reactions, Alerts Substance Reaction Severity Status Peanuts Shrimp eel Active Shrimp Active Immunizations Given and Recorded Vaccine Date Status Refusal Reason tetanus/diphtheria/pertussis, acel(Tdap) 12/30/21 Given Not Given Vaccine Date Status Refusal Reason Measles/Mumps/Rubella Virus Vaccine 03/26/22 Not G iven Patient Refuses Measles/Mumps/Rubella Virus Vaccine 03/26/22 Not G iven Patient Refuses Medications aspirin 81 mg oral delayed release tablet 162 mg, 2, tablet, By Mouth, Daily, # 90 tablet, Refills 4, Tot. Refills 4, Maintenance, 07/29/22 13:21:00 EST, Route to Pharmacy Electronically, [facility]/pharmacy #[id number], Partial fill upon patient requestif the prescription is for a schedule II opioid marcus... Start Date: 07/29/22 Status: Ordered ondansetron 4 mg oral tablet, disintegrating 1 tablet = 4 mg, By Mouth, Every 6 hours, PRN Nausea & Vomiting, # 20 tablet, 1 Refills, Maintenance, 07/29/22 13:17:00 EST, Tablet, [facility]/pharmacy #[id number], Partial fill upon patient request if the prescription is for a schedule II opioid drug., 154, cm,... Start Date: 07/29/22 Status: Ordered Multivitamins with Folic Acid 1 mg oral tablet 1 tablet, By Mouth, Daily, # 90 tablet, 6 Refills, Maintenance, 07/29/22 13:17:00 EST, Tablet, [id number], Partial fill upon patient request if the prescription is for a schedule II opioid drug., 1 tablet By Mouth Daily, 154, cm, 07/29/22 13:1... Start Date: 07/29/22 Status: Ordered Unisom 25 mg oral tablet 1 tablet = 25 mg, By Mouth, Daily at bedtime, PRN Nausea, # 60 tablet, 1 Refills, Maintenance, 07/29/22 13:17:00 EST, Tablet, [id number], Partial fill upon patient request if the prescriptionis for a schedule II opioid drug., 154, cm, ... Start Date: 07/29/22 Status: Ordered Vitamin B6 50 mg oral tablet 50 mg, 1, tablet, By Mouth, Daily, for 60 days, # 60 tablet, Refills 2, Tot. Refills 2, Acute 01/25/23 13:17:00 EDT, 07/29/22 13:17:00 EST, Route to [facility], [id number], Partial fill upon patient request if the prescription is... Start Date: 07/29/22 Stop Date: 01/25/23 Status: Ordered Problem List Condition Confirmation Course Effective Dates Status Health St atus Informant Hx of preeclampsia, prior , currently Confirmed Active Obese class I Confirmed Active Rubella non-immune status, antepartum Confirmed Active Social History Social History Type Response Smoking Status Never (less than 100 in lifetime) entered on: 08/16/21 Sex Patient Care team information Care Team Personnel Name: Ally Voss MD Position: Reference Physician Member Role: PCP Address: Address: [address] [place] [address]- Care Team Related Persons Name: CHIRAG LOZOYA Address: [address] Address: [address] [address] Name: RALEIGH BLUE Address: [address] [address]
--- OUTSIDE RECORDS SUMMARY | 2023-08-18 17:13 | XMS_ITS | Continuity of Care Document ---
Author Name Unknown Organization [facility] Address [address] [place] [address]- Care Team Providers Care Trackman Name Role Phone Bipin PEDRO, Ally Primary Care Physician Encounter [facility] [place] Date(s): 11/21/21 - 12/21/[address] [address]- Allergies, Adverse Reactions, Alerts Substance Reaction Severity Status Peanuts Shrimp eel Active Shrimp Active Medications Colace sodium 100 mg oral capsule 100 mg, 1, capsule, By Mouth, 2 times a day, PRN, # 20 capsule, Refills 2, Tot. Refills 2, Maintenance, for constipation, 09/25/21 15:09:00 EST, Route to Pharmacy Electronically, [facility]/pharmacy #[id number], Partial fill upon patient request if the prescriptio... Start Date: 09/25/21 Status: Ordered Multivitamins with Folic Acid 1 mg oral tablet 1 tablet, By Mouth, Daily, # 90 tablet, 3 Refills, Maintenance, 08/16/21 9:20:00 EST, Tablet, [facility]/pharmacy #[id number], Partial fill upon patient request if [...]
--- OUTSIDE RECORDS SUMMARY | 2023-08-18 17:13 | XMS_ITS | Continuity of Care Document ---
Author Name Unknown Organization [facility] ter Address [address] [place] [address]- Care Team Providers Care Medical Records Auditor Name Role Phone Not on Staff, PCP Primary Care Physician Unavail able [place] [facility] [place] - 11/13/[address] [address] Discharge Disposition: A-D/C Home Attending Physician: Kesha Valdivia MD Admitting Physician: Kesha Valdivia MD Referring Physician: Kesha Valdivia MD Allergies, Adverse Reactions, Alerts Substance Reaction Severity Status Peanuts Shrimp eel Active Shrimp Active Medications Colace sodium 100 mg oral capsule 100 mg, 1, capsule, By Mouth, 2 times a day, PRN, # 20 capsule, Refills 2, Tot. Refills 2, Maintenance, for constipation, 09/25/21 15:09:00 EST, Route to Pharmacy Electronically, [facility]/pharmacy #[id number], Partial fill upon patient [...] Most recent to oldest [Reference Range]: 1 Weight 77.0 kg (11/13/21 12:34 PM) Oxygen Saturation [94-100 %] 100 % (11/13/21 12:40 PM) Blood Pressure [90-138/55-84 mm Hg] 118/ 78mm Hg (11/13/21 12:40 PM) Respiratory Rate [16-30 br/min] 18 br/mi n (11/13/21 12:40 PM) Temperature [96.8-100.4 DegF] 98.4 DegF (11/13/21 12:40 PM) Blood pressure sites Arm, left (11/13/21 12:40 PM) Temperature Route Oral (11/13/21 12:40 PM) Dry Weight 77.0 kg (11/13/21 12:34 PM) Weight Obtained Via Standing scale (11/13/21 12:34 PM) Dry Weight Obtained Via Standing scale (11/13/21 12:34 PM) Social History Social History Type Response Smoking Status Never (less than 100 in lifetime) entered on: 08/16/21 Sex
--- OUTSIDE RECORDS SUMMARY | 2023-08-18 17:13 | XMS_ITS | Continuity of Care Document ---
Author Name Unknown Organization [facility] Address [address] [place] [address]- Care Team Providers Care Receiving Associate Name Role Phone Bipin PEDRO, Ally Primary Care Physician Encounter [facility] [place] Date(s): 10/08/22 - 11/07/[address] [address]- Allergies, Adverse Reactions, Alerts Substance Reaction Severity [...] 07/29/22 13:21:00 EST, Route to Pharmacy Electronically, [facility]/pharmacy #[id number], Partial fill upon patient requestif the prescription is for a schedule II opioid marcus... Start Date: 07/29/22 Status: Ordered ondansetron 4 mg oral tablet, disintegrating 1 tablet = 4 mg, By Mouth, Every 6 hours, PRN Nausea & Vomiting, # 20 tablet, 1 Refills, Maintenance, 07/29/22 13:17:00 EST, Tablet, [facility]/pharmacy #[id number], Partial fill upon patient request if [...] a schedule II opioid drug., 154, cm, 2... Start Date: 07/29/22 Status: Ordered Vitamin B6 50 mg oral tablet 50 mg, 1, tablet, By Mouth, Daily, for 60 days, # 60 tablet, Refills 2, Tot. Refills 2, Acute 01/25/23 13:17:00 EDT, 07/29/22 13:17:00 EST, Route to Pharmacy Electronically, [facility]/pharmacy #[id number], Partial fill upon patient request if [...] Reference Physician Member Role: PCP Address: Address: [address] [place] [address]- Care Team Related Persons Name: CHIRAG LOZOYA Address: [address] Address: home [address] [address] [place] Name: RALEIGH BLUE Address: [address] [address]
--- OUTSIDE RECORDS SUMMARY | 2023-08-18 17:13 | XMS_ITS | Continuity of Care Document ---
Author Name Unknown Organization [facility] Address [address] [place] [address]- Care Team Providers Care Transportation Associate Name Role Phone Ally Voss MD Primary Care Physician [place] [facility] [place]10/[place] - 10/11/[address] [address]- Attending Physician: Not on Staff, Attending MD [...] 07/29/22 13:21:00 EST, Route to Pharmacy Electronically, [facility]/pharmacy #[id number], Partial fill upon patient requestif the prescription is for a schedule II opioid marcus... Start Date: 07/29/22 Status: Ordered ondansetron 4 mg oral tablet, disintegrating 1 tablet = 4 mg, By Mouth, Every 6 hours, PRN Nausea & Vomiting, # 20 tablet, 1 Refills, Maintenance, 07/29/22 13:17:00 EST, Tablet, [facility]/pharmacy #[id number], Partial fill upon [...] Reference Physician Member Role: PCP Address: Address: [address] [place] [address]- Care Team Related Persons Name: CHIRAG LOZOYA Address: [address] Address: home [address] [place] [address] [place] Name: RALEIGH BLUE Address: home [address] [address]
--- OUTSIDE RECORDS SUMMARY | 2023-08-18 17:13 | XMS_ITS | Continuity of Care Document ---
Author Name Unknown Organization [facility] Address [address] [place] [address]- Care Team Providers Care Receptionist Doctor'S Office Name Role Phone Ally Voss MD Primary Care Physician Encounter [facility] [place] Date(s): 12/19/21 - 01/18/22 [facility] [address] [address] Allergies, Adverse Reactions, Alerts Substance Reaction Severity [...]
--- OUTSIDE RECORDS SUMMARY | 2023-08-18 17:13 | XMS_ITS | Continuity of Care Document ---
Author Name Unknown Organization [facility] Address [address] [place] [address]- Care Team Providers Care Remote Inpatient Coder Name Role Phone Ally Voss MD Primary Care Physician Encounter [facility] [place] Date(s): 04/08/22 - 05/08/[address] [address]- Allergies, Adverse Reactions, Alerts Substance Reaction Severity Status Peanuts Shrimp eel Active Shrimp Active Immunizations Given and Recorded Vaccine Date Status Refusal Reason tetanus/diphtheria/pertussis, acel(Tdap) 12/30/21 Given Not Given Vaccine Date Status Refusal Reason Measles/Mumps/Rubella Virus Vaccine 03/26/22 Not G iven Patient Refuses Measles/Mumps/Rubella Virus Vaccine 03/26/22 Not G iven Patient Refuses Medications acetaminophen 325 mg oral tablet 650 mg, By Mouth, Every 4 hours, PRN, (1-3), may give 325mg per patient preference and re-dose [id number] within 4 hours, if needed. Patient should only receive a total of 650mg of Acetaminophen every 4 hours., Refills 0, Maintenance, Pain , Mild, 0... Start Date: 03/26/22 Status: Ordered Colace sodium 100 mg oral capsule 100 mg, 1, capsule, By Mouth, 2 times a day, PRN, # 20 capsule, Refills 2, Tot. Refills 2, Maintenance, for constipation, 09/25/21 15:09:00 EST, Route to Pharmacy Electronically, [facility]/pharmacy #[id number], Partial fill upon patient request if the prescriptio... Start Date: 09/25/21 Status: Ordered ibuprofen 800 mg oral tablet 800 mg, 1, tablet, By Mouth, Every 8 hours, PRN, (4-6), may give 400mg per patient preference and re-dose with 400mg within 8 hours if needed. Patient should only receive a total of 800mg of Ibuprofen every 8 hours., Refills 0, Maintenance, Pain , M... Start Date: 03/26/22 Status: Ordered Multivitamins with Folic Acid 1 mg oral tablet 1 tablet, By Mouth, Daily, # 90 tablet, 4 Refills, Maintenance, 03/17/22 13:33:00 EDT, Tablet, [facility]/pharmacy #[id number], Partial fill upon patient request if the prescription is for a schedule II opioid drug., 1 tablet By Mouth Daily, 154.9, cm, 03/17/22 13... Start Date: 03/17/22 Status: Ordered Problem List Condition Confirmation Course Effective Dates Status Health St atus Informant Obese class II Confirmed Active Social History Social History Type Response Smoking Status Never (less than 100 in lifetime) entered on: 08/16/21 Sex Patient Care team information Personnel Name: Ally Voss MD Address: Address: [address] [place] [address]
--- OUTSIDE RECORDS SUMMARY | 2023-08-18 17:13 | XMS_ITS | Continuity of Care Document ---
Author Name Unknown Organization [facility] Address [address] [place] [address]- Care Team Providers Care Psychiatric Aide Name Role Phone Ally Voss MD Primary Care Physician Encounter [facility] [place] Date(s): 09/06/22 - 01/04/[address] [address]- Attending Physician: Not on Staff, Attending MD [...] mg, 2, tablet, By Mouth, Daily, # 180 tablet, Refills 1, Tot. Refills 1, Maintenance, 11/21/22 11:24:00 EDT, Route to Pharmacy Electronically, [facility]/pharmacy #[id number], Partial fill upon patient request if the prescription is for a schedule II opioid dr... Start Date: 11/21/22 Stop Date: 04/20/23 Status: Ordered ferrous sulfate 325 mg oral enteric coated tablet 325 mg, 1, tablet, By Mouth, 2 times a day, # 180 tablet, Refills 3, Tot. Refills 3, Maintenance, 12/19/22 15:49:00 EDT, Route to Pharmacy Electronically, [facility]/pharmacy #[id number], Partial fill upon patient request if the prescription is for a schedule II o... Start Date: 12/19/22 Stop Date: 01/18/23 Status: Ordered ondansetron 4 mg oral tablet, [...] Physician Member Role: PCP Address: Address: [address] [place] [address]- [place] Care Team Related Persons Name: CHIRAG LOZOYA Address: [address] Address: home [address] [address] Name: RALEIGH BLUE Address: [address] [address]
--- OUTSIDE RECORDS SUMMARY | 2023-08-18 17:13 | XMS_ITS | Continuity of Care Document ---
Author Name Unknown Organization [facility] Address [address] [place] [address]- Care Team Providers Care Glove Turner And Former Name Role Phone Ally Voss MD Primary Care Physician Encounter [facility] [place] Date(s): 03/03/23 - 04/02/[address] [address]- Attending Physician: AdmPo vela Admitting Physician: AdmtrPo Referring Physician: Admtr, Po Allergies, Adverse Reactions, Alerts Substance Reaction Severity Status Peanuts Shrimp eel Active Shrimp Active Immunizations Given and Recorded Vaccine Date Status Refusal Reason Measles/Mumps/Rubella Virus Vaccine 01/09/23 Given tetanus/diphtheria/pertussis, acel(Tdap) 12/30/21 Given Medications ibuprofen 600 mg oral tablet 600 mg, 1, tablet, By Mouth, Every 6 hours, # 50 tablet, Refills 0, Tot. Refills 0, Maintenance, 01/08/23 7:03:00 EDT, Route to Pharmacy Electronically, [facility]/pharmacy #[id number], Partial fill upon patient request if [...] Reference Physician Member Role: PCP Address: Address: [address] [place] [address]- Care Team Related Persons Name: CHIRAG LOZOYA Address: [address] Address: home [address] [address] [place] Name: MELVA LOZOYA Address: [address] Address: home [address] [address] [place] Name: RALEIGH BLUE Address: [address] [address]
--- OUTSIDE RECORDS SUMMARY | 2023-08-18 17:13 | XMS_ITS | Continuity of Care Document ---
Author Name Unknown Organization [facility] ter Address [address] [place] [address]- Care Team Providers Care Competitive Athlete Name Role Phone Bipin PEDRO, Ally Primary Care Physician En[facility] [place] Date(s): 03/17/22 - 04/19/[address] [address] Attending Physician: Marcella Rodriguez MD Referring Physician: Avelina SANTANA, FITNESS ASSISTANT, [place] Allergies, Adverse Reactions, Alerts Substance Reaction Severity [...] give 325mg per patient preference and re-dose [id number] within 4 hours, if needed. Patient should [...] 09/25/21 15:09:00 EST, Route to Pharmacy Electronically, [facility]/pharmacy #[id number], Partial fill upon patient request if the [...] 4 Refills, Maintenance, 03/17/22 13:33:00 EDT, Tablet, [facility]/pharmacy #[id number], Partial fill upon patient request if the prescription is for a schedule II opioid drug., 1 tablet By Mouth Daily, 154.9, cm, 03/17/22 13... Start Date: 03/17/22 Status: Ordered Problem List Condition Confirmation Course Effective Dates Status Health St atus Informant Abnormal first trimester screen Confirmed Active Obese class II Confirmed Active Obesity in Confirmed Active Social History Social History Type Response Smoking Status Never (less than 100 in lifetime) entered on: 08/16/21 Sex Patient Care team information Personnel Name: Ally Voss MD Address: Address: [address] [place] [address]
--- OUTSIDE RECORDS SUMMARY | 2023-08-18 17:13 | XMS_ITS | Continuity of Care Document ---
Author Name Unknown Organization [facility] [email or web address] Address [address], [address] [place] [address]- Care Team Providers Care Ui Developer Name Role Phone Bipin PEDRO, Ally Primary Care Physician [place] [facility] [place] Date(s): 09/22/22 - 10/22/22 [email or web address] [facility] [address] [place] [address]- Allergies, Adverse Reactions, Alerts Substance Reaction Severity [...] 07/29/22 13:21:00 EST, Route to Pharmacy Electronically, [facility]/pharmacy #[id number], Partial fill upon patient requestif the prescription is for a schedule II opioid marcus... Start Date: 07/29/22 Status: Ordered ondansetron 4 mg oral tablet, disintegrating 1 tablet = 4 mg, By Mouth, Every 6 hours, PRN Nausea & Vomiting, # 20 tablet, 1 Refills, Maintenance, 07/29/22 13:17:00 EST, Tablet, [facility]/pharmacy #[id number], Partial fill upon patient [...] Reference Physician Member Role: PCP Address: Address: [address] [place] [address]- Care Team Related Persons Name: CHIRAG LOZOYA Address: [address] Address: home [address] [address] [place] Name: RALEIGH BLUE Address: home [address] [address]
--- OUTSIDE RECORDS SUMMARY | 2023-08-18 17:13 | XMS_ITS | Continuity of Care Document ---
Author Name Unknown Organization [facility] Address [address] [place] [address]- Care Team Providers Care Gathering Machine Setter Name Role Phone Ally Voss MD Primary Care Physician [place] [facility] [place] Date(s): 12/05/22 - 01/11/[address] [address] Attending Physician: Not on Staff, Attending MD Referring Physician: Ally Voss MD Allergies, Adverse Reactions, Alerts Substance Reaction [...] 0 Refills, Maintenance, 01/08/23 7:03:00 EDT, Tablet, [facility]/pharmacy #[id number], Partial fill upon patient request if the prescription is for a schedule II opioid drug., 154, cm,... Start Date: 01/08/23 Status: Ordered ibuprofen 600 mg oral tablet 600 mg, 1, tablet, By Mouth, Every 6 hours, # 50 tablet, Refills 0, Tot. Refills 0, Maintenance, 01/08/23 7:03:00 EDT, Route to Pharmacy Electronically, [facility]/pharmacy #[id number], Partial fill upon patient request if the prescription is for a schedule II opi... Start Date: 01/08/23 Status: Ordered MiraLax oral powder for reconstitution = 17 Gm, By Mouth, Daily, dissolve in water before taking, # 255 Gm, 0 Refills, Maintenance, 01/08/23 7:03:00 EDT, REC Powder, [facility]/pharmacy #[id number], Partial fill upon patient request if the prescription is for a schedule II opioid drug., 17 Gm By Mouth... Start Date: 01/08/23 Status: Ordered oxyCODONE 5 mg oral tablet 5 mg, 1, tablet, By Mouth, Every 6 hours, PRN, # 10 tablet, Refills 0, Tot. Refills 0, Maintenance,as needed for pain, 01/08/23 7:03:00 EDT, Route to Pharmacy Electronically, [facility]/pharmacy #[id number], Partial fill upon patient request if the prescription i... Start Date: 01/08/23 Status: Ordered simethicone 80 mg oral tablet, chewable 80 mg, 1, tablet, Chew, 4 times a day, PRN, # 36 tablet, Refills 0, Tot. Refills 0, Maintenance, asneeded for gas, 01/08/23 7:03:00 EDT, Route to Pharmacy Electronically, [facility]/pharmacy #[id number], Partialfill upon patient request if the prescription is fo... Start Date: 01/08/23 Status: Ordered Tylenol 325 mg oral tablet 650 mg, 2, tablet, By Mouth, Every 6 hours, PRN, # 120 tablet, Refills 0, Tot. Refills 0, Maintenance, for pain, 01/08/23 7:03:00 EDT, Route to Pharmacy Electronically, [facility]/pharmacy #[id number], Partial fill upon [...] Physician Member Role: PCP Address: Address: [address] [place] [address]- Care Team Related Persons Name: CHIRAG LOZOYA Address: [address] Address: home [address] [address] Name: RALEIGH BLUE Address: [address] [address] Name: HUGH CARMICHAEL GIRL Address: [address] Address: home [address] [address] [place]
--- OUTSIDE RECORDS SUMMARY | 2023-08-18 17:13 | XMS_ITS | Continuity of Care Document ---
Author Name Unknown Organization [facility] Address [address] [place] [address]- Care Team Providers Care Network Field Engineer Name Role Phone Not on Staff, PCP Primary Care Physician Unavail able [place] [facility] [place](s): 08/20/21 - 09/26/[address] [address]- Attending Physician: Not on Staff, Attending MD [...] Mouth Daily Start Date: 08/16/21 Status: Ordered Unisom 25 mg oral tablet [...] Acute 10/15/21 9:20:00 EDT, 08/16/21 9:20:00 EST, [facility]/pharmacy #[id number], Partial fill upon patient request if the prescription is for a schedule II opioid drug. Start Date: 08/16/21 Stop Date: 10/15/21 Status: Ordered Zofran 4 mg oral tablet [...] Refills, Maintenance, 09/10/21 11:11:00 EST, Tablet, [facility]acy [id number], Partial fill upon [...]
--- OUTSIDE RECORDS SUMMARY | 2023-08-18 17:13 | XMS_ITS | Continuity of Care Document ---
Author Name Unknown Organization [facility] Address [address] [place] [address]- Care Team Providers Care Wood Tile Installer Name Role Phone Not on Staff, PCP Primary Care Physician Unavail able Encounter [facility] [place] Date(s): 08/27/21 - 09/26/21 [facility] [address] [address]- Allergies, Adverse Reactions, Alerts No Known Allergies [...]
--- OUTSIDE RECORDS SUMMARY | 2023-08-18 17:13 | XMS_ITS | Continuity of Care Document ---
Author Name Unknown Organization [facility] Address [address] [place] [address]- Care Team Providers Care Hand I Blocker Name Role Phone Not on Staff, PCP Primary Care Physician Unavail able Encounter [facility] [place] Date(s): 09/10/21 - 10/24/[address] [address] Attending Physician: Not on Staff, Attending MD [...] 0 Refills, Maintenance, 09/10/21 11:11:00 EST, Tablet, [facility]/pharmacy #[id number], Partial fill upon patient request if the prescription is for a schedule II opioid drug... Start Date: 09/10/21 Status: Ordered Problem List Condition Effective Dates Status Health Status Inform ant Obese class I(Confirmed) Active Obesity in (Confirmed) Active Social History Social History Type Response Smoking Status Never (less than 100 in lifetime) entered on: 08/16/21 Sex
--- OUTSIDE RECORDS SUMMARY | 2023-08-18 17:13 | XMS_ITS | Continuity of Care Document ---
Author Name Unknown Organization [facility] ter Address [address] [place] [address]- Care Team Providers Care Thermo Cementing Folder Operator Name Role Phone Not on Staff, PCP Primary Care Physician Unavail able Encounter [facility] Date(s): 07/31/21 - 07/31/[address] [address]- Discharge Disposition: A-D/C Walkout Attending Physician: Stephen Howe MD Admitting Physician: Stephen Howe MD Referring Physician: Stephen Howe MD
--- OUTSIDE RECORDS SUMMARY | 2023-08-18 17:13 | XMS_ITS | Continuity of Care Document ---
Author Name Unknown Organization [facility] Address [address] [place] [address]- Care Team Providers Care Color Grinder Name Role Phone Ally Voss MD Primary Care Physician Encounter [facility] [place] Date(s): 02/03/22 - 04/30/[address] [address]- Attending Physician: Not on Staff, Attending MD [...] give 325mg per patient preference and re-dose [id number] within 4 hours, if needed. Patient should [...] 15:09:00 EST, Route to Pharmacy Electronically, [facility]/pharmacy #[id number], Partial fill upon patient request if the [...] 4 Refills, Maintenance, 03/17/22 13:33:00 EDT, Tablet, [id number], Partial fill upon patient request if the [...] Personnel Name: Ally Voss MD Address: Address: [address] [place] [address]
--- OUTSIDE RECORDS SUMMARY | 2023-08-18 17:13 | XMS_ITS | Continuity of Care Document ---
Author Name Unknown Organization [facility] Address [address] [place] [address]- Care Team Providers Care Bin Piler Name Role Phone Ally Voss MD Primary Care Physician [place] [facility] [place] 03/17/22 - 04/24/[address] [address]- Attending Physician: Not on Staff, Attending MD [...] give 325mg per patient preference and re-dose [id number] within 4 hours, if needed. Patient should [...] 09/25/21 15:09:00 EST, Route to Pharmacy Electronically, [facility]/pharmacy #[id number], Partial fill upon patient request if the [...] Refills, Maintenance, 03/17/22 13:33:00 EDT, Tablet, [id number], Partial fill upon patient request if the [...] Personnel Name: Ally Voss MD Address: Address: [address] [place] [address]
--- OUTSIDE RECORDS SUMMARY | 2023-08-18 17:13 | XMS_ITS | Continuity of Care Document ---
Author Name Unknown Organization [facility] Address [address] [place] [address]- Care Team Providers Care Vmware Administrator Name Role Phone Bipin PEDRO, Ally Primary Care Physician Encounter [facility] [place] Date(s): 01/22/23 - 02/21/[address] [address]- Allergies, Adverse Reactions, Alerts Substance Reaction Severity Status Peanuts Shrimp eel Active Shrimp Active Immunizations Given and Recorded Vaccine Date Status Refusal Reason Measles/Mumps/Rubella Virus Vaccine 01/09/23 Given tetanus/diphtheria/pertussis, acel(Tdap) 12/30/21 Given Not Given Vaccine Date Status Refusal Reason Measles/Mumps/Rubella Virus Vaccine 03/26/22 Not G iven Patient Refuses Measles/Mumps/Rubella Virus Vaccine 03/26/22 Not G iven Patient Refuses Medications ibuprofen 600 mg oral tablet 600 mg, 1, tablet, By Mouth, Every 6 hours, # 50 tablet, Refills 0, Tot. Refills 0, Maintenance, 01/08/23 7:03:00 EDT, Route to Pharmacy Electronically, [facility]/pharmacy #[id number], Partial fill upon patient request if the prescription is for a schedule II opi... Start Date: 01/08/23 Status: Ordered Tylenol 325 mg oral tablet 650 mg, 2, tablet, By Mouth, Every 6 hours, PRN, # 120 tablet, Refills 0, Tot. Refills 0, Maintenance, for pain, 01/08/23 7:03:00 EDT, Route to Pharmacy Electronically, [facility]/pharmacy #[id number], Partial fill upon patient request [...] Reference Physician Member Role: PCP Address: Address: [address] [place] [address]- Care Team Related Persons Name: CHIRAG LOZOYA Address: [address] Address: home [address] [address] [place] Name: MELVA LOZOYA Address: [address] Address: home [address] [address] [place] Name: RALEIGH BLUE Address: home [address] [address]
--- OUTSIDE RECORDS SUMMARY | 2023-08-18 17:13 | XMS_ITS | Continuity of Care Document ---
Author Name Unknown Organization [facility] Address [address] [place] [address]- Care Team Providers Care Neurology Director Name Role Phone Ally Voss MD Primary Care Physician Encounter [facility] [place] Date(s): 03/25/22 - 06/07/[address] [address]- Attending Physician: Not on Staff, Attending MD [...] give 325mg per patient preference and re-dose [id number] within 4 hours, if needed. Patient should [...] 09/25/21 15:09:00 EST, Route to Pharmacy Electronically, [facility]/pharmacy #[id number], Partial fill upon patient request if the [...] Refills, Maintenance, 03/17/22 13:33:00 EDT, Tablet, [id number], Partial fill upon patient request if the prescription is for a schedule II opioid drug., 1 tablet By Mouth Daily, 154.9, cm, 03/17/22 13... Start Date: 03/17/22 Status: Ordered Problem List Condition Confirmation Course Effective Dates Status Health St atus Informant Obese class I Confirmed Active Social History Social History Type Response Smoking Status Never (less than 100 in lifetime) entered on: 08/16/21 Sex Patient Care team information Care Team Personnel Name: Ally Voss MD Position: Reference Physician Member Role: PCP Address: Address: [address] [place] [address]- Care Team Related Persons Name: CHIRAG LOZOYA Address: [address] Address: home [address] [address] [place] Name: RALEIGH BLUE Address: home [address] [address]
--- OUTSIDE RECORDS SUMMARY | 2023-08-18 17:13 | XMS_ITS | Continuity of Care Document ---
Author Name Unknown Organization [facility] Address [address] [place] [address]- Care Team Providers Care Visitor Services Technician Name Role Phone Bipni PEDRO, Ally Primary Care Physician [place] [facility] [place]/02/[place] - 03/01/[address] [address]- Attending Physician: Fela Good CNM Admitting Physician: Fela Good CNM Allergies, Adverse Reactions, Alerts Substance Reaction [...] 01/08/23 7:03:00 EDT, Route to Pharmacy Electronically, [facility]/pharmacy #[id number], Partial fill upon patient request if the prescription is for a schedule II opi... Start Date: 01/08/23 Status: Ordered Tylenol 325 mg oral tablet 650 mg, 2, tablet, By Mouth, Every 6 hours, PRN, # 120 tablet, Refills 0, Tot. Refills 0, Maintenance, for pain, 01/08/23 7:03:00 EDT, Route to Pharmacy Electronically, [facility]/pharmacy #[id number], Partial fill upon patient request if the [...] Reference Physician Member Role: PCP Address: Address: [address] [place] [address]- Care Team Related Persons Name: CHIRAG LOZOYA Address: [address] Address: home [address] [address] [place] Name: MELVA LOZOYA Address: [address] Address: home [address] [address] [place] Name: RALEIGH BLUE Address: home [address] [address]
--- OUTSIDE RECORDS SUMMARY | 2023-08-18 17:14 | XMS_ITS | Continuity of Care Document ---
Author Name Unknown Organization [facility] Address [address] [place] [address]- Care Team Providers Care Leaflet Distributor Name Role Phone Not on Staff, PCP Primary Care Physician Unavail able Encounter [facility] [place] Date(s): 08/16/21 - 09/18/[address] [address]- Attending Physician: Not on Staff, Attending MD [...] Refills, Maintenance, 09/10/21 11:11:00 EST, Tablet, [id number], Partial fill upon patient request if the prescription is for a schedule II opioid drug... Start Date: 09/10/21 Status: Ordered Problem List Condition Effective Dates Status Health Status Inform ant Obese class I(Confirmed) Active Obesity in (Confirmed) Active Social History Social History Type Response Smoking Status Never (less than 100 in lifetime) entered on: 08/16/21 Sex
--- OUTSIDE RECORDS SUMMARY | 2023-08-18 17:14 | XMS_ITS | Continuity of Care Document ---
Author Name Unknown Organization [facility] Address [address] [place] [address]- Care Team Providers Care Staff Radiographer Name Role Phone Bipin PEDRO, Ally Primary Care Physician [place] [facility] [place](s[place] 03/28/22 - 04/27/[address] [address]- Allergies, Adverse Reactions, Alerts Substance Reaction Severity [...] give 325mg per patient preference and re-dose [id number] within 4 hours, if needed. Patient should [...] 09/25/21 15:09:00 EST, Route to Pharmacy Electronically, [facility]/pharmacy #[id number], Partial fill upon patient request if the [...] 4 Refills, Maintenance, 03/17/22 13:33:00 EDT, Tablet, [facility]/pharmacy #[id number], Partial fill upon patient request if the [...] Personnel Name: Ally Voss MD Address: Address: [address] [place] [address]
--- OUTSIDE RECORDS SUMMARY | 2023-08-18 17:14 | XMS_ITS | Continuity of Care Document ---
Author Name Unknown Organization [facility] Address [address] [place] [address]- Care Team Providers Care Fur Finisher Tailor Name Role Phone Bipin PEDRO, Ally Primary Care Physician En[place] [facility] [place] Date(s): 12/30/22 - 01/29/[address] [address]- Allergies, Adverse Reactions, Alerts Substance Reaction Severity [...] 0 Refills, Maintenance, 01/08/23 7:03:00 EDT, Tablet, [facility]/pharmacy #[id number], Partial fill upon patient request if the prescription is for a schedule II opioid drug., 154, cm,... Start Date: 01/08/23 Status: Ordered ibuprofen 600 mg oral tablet 600 mg, 1, tablet, By Mouth, Every 6 hours, # 50 tablet, Refills 0, Tot. Refills 0, Maintenance, 01/08/23 7:03:00 EDT, Route to Pharmacy Electronically, [facility]/pharmacy #[id number], Partial fill upon patient request if the prescription is for a schedule II opi... Start Date: 01/08/23 Status: Ordered MiraLax oral powder for reconstitution = 17 Gm, By Mouth, Daily, dissolve in water before taking, # 255 Gm, 0 Refills, Maintenance, 01/08/23 7:03:00 EDT, REC Powder, [facility]/pharmacy #[id number], Partial fill upon patient request [...] 01/08/23 7:03:00 EDT, Route to Pharmacy Electronically, [facility]/pharmacy #[id number], Partial fill upon patient request [...] Physician Member Role: PCP Address: Address: [address] [place] [address]- [place] Care Team Related Persons Name: CHIRAG LOZOYA Address: [address] Address: home [address] [address] [place] Name: MELVA LOZOYA Address: [address] Address: home [address] [address] [place] Name: RALEIGH BLUE Address: home [address] [address]
--- OUTSIDE RECORDS SUMMARY | 2023-08-18 17:14 | XMS_ITS | Continuity of Care Document ---
Author Name Unknown Organization [facility] Address [address] [place] [address]- Care Team Providers Care Staff Mechanical Engineer Name Role Phone Not on Staff, PCP Primary Care Physician Unavail able Encounter [facility] [place] Date(s): 07/23/21 - 08/22/21 [facility] [address] [address]- Allergies, Adverse Reactions, Alerts No Known Allergies [...]
--- OUTSIDE RECORDS SUMMARY | 2023-08-18 17:14 | XMS_ITS | Continuity of Care Document ---
Author Name Unknown Organization [facility] Address [address] [place] [address]- Care Team Providers Care Lead Software Developer Name Role Phone Bipin PEDRO, Ally Primary Care Physician Encounter [facility] [place] Date(s): 11/15/21 - 12/15/[address] [address]- Allergies, Adverse Reactions, Alerts Substance Reaction Severity Status Peanuts Shrimp eel Active Shrimp Active Medications Colace sodium 100 mg oral capsule 100 mg, 1, capsule, By Mouth, 2 times a day, PRN, # 20 capsule, Refills 2, Tot. Refills 2, Maintenance, for constipation, 09/25/21 15:09:00 EST, Route to Pharmacy Electronically, [facility]/pharmacy #[id number], Partial fill upon patient request if the prescriptio... Start Date: 09/25/21 Status: Ordered Multivitamins with Folic Acid 1 mg oral tablet 1 tablet, By Mouth, Daily, # 90 tablet, 3 Refills, Maintenance, 08/16/21 9:20:00 EST, Tablet, [facility]/pharmacy #[id number], Partial fill upon patient request [...]
--- OUTSIDE RECORDS SUMMARY | 2023-08-18 17:14 | XMS_ITS | Continuity of Care Document ---
Author Name Unknown Organization [facility] Address Unknown Care Team Providers Care Food Service Team Member Name Role Phone Not on Staff, PCP Primary Care Physician Unavail able En[facility] [place] Date(s): 09/24/21 - [facility]27/[facility] Attending Physician: Not on Staff, Attending MD Referring Physician: Melvi Wilhelm DO Allergies, Adverse Reactions, Alerts No Known Allergies Medications Colace sodium 100 mg oral capsule 100 mg, 1, capsule, By Mouth, 2 times a day, PRN, # 20 capsule, Refills 2, Tot. Refills 2, Maintenance, for constipation, 09/25/21 15:09:00 EST, Route to Pharmacy Electronically, [facility]/pharmacy #[id number], Partial fill upon patient request [...]
--- OUTSIDE RECORDS SUMMARY | 2023-08-18 17:14 | XMS_ITS | Continuity of Care Document ---
Author Name Unknown Organization [facility] Address [address] [place] [address]- Care Team Providers Care Inner Tube Tuber Machine Operator Name Role Phone Ally Voss MD Primary Care Physician [place] [facility] [place] 02/21/22 - 03/23/[address] [address] Allergies, Adverse Reactions, Alerts Substance Reaction [...] 09/25/21 15:09:00 EST, Route to Pharmacy Electronically, [facility]/pharmacy #[id number], Partial fill upon patient request if the prescriptio... Start Date: 09/25/21 Status: Ordered Multivitamins with Folic Acid 1 mg oral tablet 1 tablet, By Mouth, Daily, # 90 tablet, 4 Refills, Maintenance, 03/17/22 13:33:00 EDT, Tablet, [id number], Partial fill upon patient request if the prescription is for a schedule II opioid drug., 1 tablet By Mouth Daily, 154.9, cm, 03/17/22 13... Start Date: 03/17/22 Status: Ordered Problem List Condition Effective Dates Status Health Status Inform ant Abnormal first trimester screen(Confirmed) Active Obese class II(Confirmed) Active Obesity in (Confirmed) Active Social History Social History Type Response Smoking Status Never (less than 100 in lifetime) entered on: 08/16/21 Sex Care Team Personnel Name: Ally Voss MD Address: [address] [place] [address]
--- OUTSIDE RECORDS SUMMARY | 2023-08-18 17:14 | XMS_ITS | Continuity of Care Document ---
Author Name Unknown Organization [facility] Address [address] [place] [address]- Care Team Providers Care Sprayer Automatic Spray Machine Name Role Phone Ally Voss MD Primary Care Physician En[place] [facility] [place] Date(s): 07/02/22 - 08/28/[address] [address]- Attending Physician: Fela Good CNM Admitting Physician: Fela Good CNM Referring Physician: Not on Staff, Referring MD Allergies, Adverse Reactions, Alerts Substance Reaction [...] Reference Physician Member Role: PCP Address: Address: [address] [place] [address]- Care Team Related Persons Name: CHIRAG LOZOYA Address: [address] Address: home [address] [address] Name: RALEIGH BLUE Address: home [address] [address]
--- OUTSIDE RECORDS SUMMARY | 2023-08-18 17:14 | XMS_ITS | Continuity of Care Document ---
Author Name Unknown Organization [facility] Address [address] [place] [address]- Care Team Providers Care Chimney Builder Brick Name Role Phone Not on Staff, PCP Primary Care Physician Unavail able Encounter [facility] [place] Date(s): 10/01/21 - 10/31/21 [facility] [address] [address]- Allergies, Adverse Reactions, Alerts No Known Allergies [...]
--- OUTSIDE RECORDS SUMMARY | 2023-08-18 17:14 | XMS_ITS | Continuity of Care Document ---
Author Name Unknown Organization [facility] Address [address] [place] [address]- Care Team Providers Care Veterans Service Representative Name Role Phone Ally Voss MD Primary Care Physician [place] [facility] [place] 07/29/[place] - 09/10/[address] [address]- Attending Physician: Not on Staff, Attending MD [...] 07/29/22 13:21:00 EST, Route to Pharmacy Electronically, [facility]/pharmacy #[id number], Partial fill upon patient requestif the prescription is for a schedule II opioid marcus... Start Date: 07/29/22 Status: Ordered ondansetron 4 mg oral tablet, disintegrating 1 tablet = 4 mg, By Mouth, Every 6 hours, PRN Nausea & Vomiting, # 20 tablet, 1 Refills, Maintenance, 07/29/22 13:17:00 EST, Tablet, [facility]/pharmacy #[id number], Partial fill upon patient request [...] Physician Member Role: PCP Address: Address: [address] [place] [address]- Care Team Related Persons Name: CHIRAG LOZOYA Address: [address] Address: home [address] [place] [address] [place] Name: RALEIGH BLUE Address: home [address] [address]
--- OUTSIDE RECORDS SUMMARY | 2023-08-18 17:14 | XMS_ITS | Continuity of Care Document ---
Author Name Unknown Organization [facility] Address [address] [place] [address]- Care Team Providers Care Cloth Shrinking Machine Operator Name Role Phone Bipin PEDRO, Ally Primary Care Physician [place] [facility] [place] Date(s): 05/08/22 - 06/07/[address] [address]- Allergies, Adverse Reactions, Alerts Substance Reaction Severity [...] give 325mg per patient preference and re-dose [id number] within 4 hours, if needed. Patient should [...] EST, Route to Pharmacy Electronically, [facility]/pharmacy #[id number], Partial fill upon patient request if the [...] 4 Refills, Maintenance, 03/17/22 13:33:00 EDT, Tablet, [facility]/pharmacy #0613, Partial fill upon patient request if the [...] Reference Physician Member Role: PCP Address: Address: [address] [place] [address]- Care Team Related Persons Name: CHIRAG LOZOYA Address: [address] Address: home [address] [address] Name: RALEIGH BLUE Address: home [address] [address]
--- OUTSIDE RECORDS SUMMARY | 2023-08-18 17:14 | XMS_ITS | Continuity of Care Document ---
Author Name Unknown Organization [facility] Address [address] [place] [address]- Care Team Providers Care Rn New Graduate Name Role Phone Ally Voss MD Primary Care Physician Encounter [facility] Date(s): 09/11/22 - 10/16/[address] [address]- Attending Physician: Not on Staff, Attending MD [...] 07/29/22 13:21:00 EST, Route to Pharmacy Electronically, [facility]/pharmacy #[id number], Partial fill upon patient requestif the prescription is for a schedule II opioid marcus... Start Date: 07/29/22 Status: Ordered ondansetron 4 mg oral tablet, disintegrating 1 tablet = 4 mg, By Mouth, Every 6 hours, PRN Nausea & Vomiting, # 20 tablet, 1 Refills, Maintenance, 07/29/22 13:17:00 EST, Tablet, [facility]/pharmacy #[id number], Partial fill upon patient [...] Physician Member Role: PCP Address: Address: [address] [place] [address]- Care Team Related Persons Name: CHIRAG LOZOYA Address: [address] Address: home [address] [address] [place] Name: RALEIGH BLUE Address: home [address] [address]
--- OUTSIDE RECORDS SUMMARY | 2023-08-18 17:14 | XMS_ITS | Continuity of Care Document ---
Author Name Unknown Organization [facility] Address [address] [place] [address]- Care Team Providers Care Textile Colorist Formulator Name Role Phone Ally Voss MD Primary Care Physician Encounter [facility] [place] Date(s): 10/24/22 - 02/15/[address] [address]- Attending Physician: Not on Staff, Attending MD [...] 01/08/23 7:03:00 EDT, Route to Pharmacy Electronically, [facility]/pharmacy #[id number], Partial fill upon patient request if the prescription is for a schedule II opi... Start Date: 01/08/23 Status: Ordered Tylenol 325 mg oral tablet 650 mg, 2, tablet, By Mouth, Every 6 hours, PRN, # 120 tablet, Refills 0, Tot. Refills 0, Maintenance, for pain, 01/08/23 7:03:00 EDT, Route to Pharmacy Electronically, [facility]/pharmacy #[id number], Partial fill upon patient [...] Reference Physician Member Role: PCP Address: Address: [address] [place] [address]- Care Team Related Persons Name: CHIRAG LOZOYA Address: [address] Address: home [address] [address] [place] Name: MELVA LOZOYA Address: [address] Address: home [address] [address] [place] Name: RALEIGH BLUE Address: home [address] [address]
--- OUTSIDE RECORDS SUMMARY | 2023-08-18 17:14 | XMS_ITS | Continuity of Care Document ---
Author Name Unknown Organization [facility] Address [address] [place] [address]- Care Team Providers Care Geology Associate Name Role Phone Ally Voss MD Primary Care Physician Encounter [facility] [place] Date(s): 05/08/22 - 06/08/[address] [address]- Attending Physician: Not on Staff, Attending MD [...] give 325mg per patient preference and re-dose [id number] within 4 hours, if needed. Patient should [...] 09/25/21 15:09:00 EST, Route to Pharmacy Electronically, [facility]/pharmacy #[id number], Partial fill upon patient request if the [...] Refills, Maintenance, 03/17/22 13:33:00 EDT, Tablet, [facility], Partial fill upon patient request if the [...] Physician Member Role: PCP Address: Address: [address] [place] [address]- Care Team Related Persons Name: CHIRAG LOZOYA Address: [address] Address: home [address] [address] [place] Name: RALEIGH BLUE Address: home [address] [address]
--- OUTSIDE RECORDS SUMMARY | 2023-08-18 17:14 | XMS_ITS | Continuity of Care Document ---
Author Name Unknown Organization [facility] Address [address] [place] [address]- Care Team Providers Care Associate Oracle Retail Name Role Phone Bipin PEDRO, Ally Primary Care Physician Encounter [facility] [place] Date(s): 04/01/22 - 05/01/[address] [address]- Allergies, Adverse Reactions, Alerts Substance Reaction Severity [...] give 325mg per patient preference and re-dose [id number] within 4 hours, if needed. Patient should [...] 15:09:00 EST, Route to Pharmacy Electronically, [facility]/pharmacy #[id number], Partial fill upon patient request if the [...] 4 Refills, Maintenance, 03/17/22 13:33:00 EDT, Tablet, [facility]/pharmacy #[id number], Partial fill upon patient request if the [...] Personnel Name: Ally Voss MD Address: Address: [address] [place] [id number]
--- OUTSIDE RECORDS SUMMARY | 2023-08-18 17:14 | XMS_ITS | Continuity of Care Document ---
Author Name Unknown Organization [facility] Address [address] [place] [address]- Care Team Providers Care Sliding Joint Maker Name Role Phone Bipin PEDRO, Ally Primary Care Physician [place] [facility] [place] 04/01/22 - 05/01/[address] [address]- Allergies, Adverse Reactions, Alerts Substance Reaction Severity [...] give 325mg per patient preference and re-dose [id number] within 4 hours, if needed. Patient should [...] 09/25/21 15:09:00 EST, Route to Pharmacy Electronically, [facility]/pharmacy #[id number], Partial fill upon patient request if the [...] 4 Refills, Maintenance, 03/17/22 13:33:00 EDT, Tablet, [facility]/pharmacy #[id number], Partial fill upon patient request if the [...] Personnel Name: Ally Voss MD Address: Address: [address] [place] [address]
--- OUTSIDE RECORDS SUMMARY | 2023-08-18 17:14 | XMS_ITS | Continuity of Care Document ---
Author Name Unknown Organization [facility] Address [address] [place] [address]- Care Team Providers Care Photovoltaic Fabrication Technician Name Role Phone Bipin PEDRO, Ally Primary Care Physician En[place] [facility] [place] Date(s): 11/14/21 - 12/14/21 [facility] [address] [place] [address] Attending Physician: Po Persaud Admitting Physician: AdmPo vela Referring Physician: Admtr, Ar8 Allergies, Adverse Reactions, Alerts Substance Reaction Severity Status Peanuts Shrimp eel Active Shrimp Active Medications Colace sodium 100 mg oral capsule 100 mg, 1, capsule, By Mouth, 2 times a day, PRN, # 20 capsule, Refills 2, Tot. Refills 2, Maintenance, for constipation, 09/25/21 15:09:00 EST, Route to Pharmacy Electronically, [facility]/pharmacy #[id number], Partial fill upon patient request if the prescriptio... Start Date: 09/25/21 Status: Ordered Multivitamins with Folic Acid 1 mg oral tablet 1 tablet, By Mouth, Daily, # 90 tablet, 3 Refills, Maintenance, 08/16/21 9:20:00 EST, Tablet, [facility]/pharmacy #[id number], Partial fill upon [...]
--- OUTSIDE RECORDS SUMMARY | 2023-08-18 17:14 | XMS_ITS | Continuity of Care Document ---
Author Name Unknown Organization [facility] Address [address] [place] [address]- Care Team Providers Care Raise Driller Name Role Phone Ally Voss MD Primary Care Physician Encounter [facility] [place] Date(s): 02/25/23 - 04/02/[address] [address]- Attending Physician: Not on Staff, Attending MD [...] Reference Physician Member Role: PCP Address: Address: [address] [place] [address]- Care Team Related Persons Name: CHIRAG LOZOYA Address: [address] Address: home [address] [place] [address] [place] Name: MELVA LOZOYA Address: [address] Address: home [address] [address] [place] Name: RALEIGH BLUE Address: home [address] [address]
--- OUTSIDE RECORDS SUMMARY | 2023-08-18 17:14 | XMS_ITS | Continuity of Care Document ---
Author Name Unknown Organization [facility] Address Unknown Care Team Providers Care Ebd Teacher Name Role Phone Not on Staff, PCP Primary Care Physician Unavail able Encounter [facility] Date(s): 09/27/21 - 10/27/21 [facility] Attending Physician: Po Persaud Admitting Physician: Po Persaud Referring Physician: Po Persaud Allergies, Adverse Reactions, Alerts No Known Allergies Medications Colace sodium 100 mg oral capsule 100 mg, 1, capsule, By Mouth, 2 times a day, PRN, # 20 capsule, Refills 2, Tot. Refills 2, Maintenance, for constipation, 09/25/21 15:09:00 EST, Route to Pharmacy Electronically, [facility]/pharmacy #[id number], Partial fill upon patient request [...]
--- OUTSIDE RECORDS SUMMARY | 2023-08-18 17:15 | XMS_ITS | Continuity of Care Document ---
Author Name Unknown Organization [facility] Address [address] [place] [address]- Care Team Providers Care Auto Body Repairer Name Role Phone Ally Voss MD Primary Care Physician Encounter [facility] Date(s): 02/16/23 - 03/19/[address] [address]- Attending Physician: Not on Staff, Attending MD [...] Physician Member Role: PCP Address: Address: [address] [place] [address]- Care Team Related Persons Name: CHIRAG LOZOYA Address: [address] Address: home [address] [place] [address] [place] Name: MELVA LOZOYA Address: [address] Address: [address] [address] [place] Name: RALEIGH BLUE Address: [address] [address]
--- OUTSIDE RECORDS SUMMARY | 2023-08-18 17:15 | XMS_ITS | Continuity of Care Document ---
Author Name Unknown Organization [facility] Address [address] [place] [address]- Care Team Providers Care Back Shoe Cutter Name Role Phone Ally Voss MD Primary Care Physician Encounter [facility] [place] Date(s): 10/15/21 - 02/12/[address] [address]- Attending Physician: Not on Staff, Attending MD [...] 09/25/21 15:09:00 EST, Route to Pharmacy Electronically, [facility]/pharmacy #[id number], Partial fill upon [...] Inform ant Abnormal first trimester screen(Confirmed) Active Obesity in (Confirmed) Active Social History Social History Type Response Smoking Status Never (less than 100 in lifetime) entered on: 08/16/21 Sex
--- OUTSIDE RECORDS SUMMARY | 2023-08-18 17:15 | XMS_ITS | Continuity of Care Document ---
Author Name Unknown Organization [facility] Address [address] [place] [address]- Care Team Providers Care Development Administrator Name Role Phone Ally Voss MD Primary Care Physician Encounter [facility] [place] Date(s): 08/02/23 - 08/02/[address] [address] Discharge Disposition: A-D/C Home Attending Physician: Shelby Hassan MD Admitting Physician: Shelby Hassan MD Referring Physician: Shelby Hassan MD Allergies, Adverse Reactions, Alerts Substance Reaction Severity Status Peanuts Shrimp eel Active Shrimp Active Immunizations Given and Recorded Vaccine Date Status Refusal Reason Measles/Mumps/Rubella Virus Vaccine 01/09/23 Given tetanus/diphtheria/pertussis, acel(Tdap) 12/30/21 Given Medications acetaminophen 325 mg oral tablet 975 mg, Tablet, By Mouth, Once, PRN for Pain , Moderate, Routine, 08/02/23 9:16:00 EST Start Date: 08/02/23 Stop Date: 08/02/23 Status: Completed ibuprofen 600 mg oral tablet 600 mg, 1, tablet, By Mouth, Every 6 hours, # 50 tablet, Refills 0, Tot. Refills 0, Maintenance, 01/08/23 7:03:00 EDT, Route to Pharmacy Electronically, [facility]/pharmacy #[id number], Partial fill upon patient request if the prescription is for a schedule II opi... Start Date: 01/08/23 Status: Ordered ibuprofen 800 mg oral tablet 800 mg, Tablet, By Mouth, Once, PRN for Pain , Mild, Routine, 08/02/23 9:15:00 EST Start Date: 08/02/23 Stop Date: 08/02/23 Status: Completed ondansetron 4 mg oral tablet, disintegrating 1 tablet = 4 mg, By Mouth, Every 6 hours, PRN Nausea & Vomiting, # 20 tablet, 1 Refills, Maintenance, 07/24/23 8:47:00 EST, Tablet, [facility]/pharmacy #[id number], Partial fill upon patient request if the prescription is for a schedule II opioid drug., 154, cm, 0... Start Date: 07/24/23 Status: Ordered Multivitamins with Folic Acid 1 mg oral tablet 1 tablet, By Mouth, Daily, # 90 tablet, 2 Refills, Maintenance, 06/29/23 8:53:00 EST, [facility]/pharmacy #[id number], Partial fill upon patient request if the prescription is for a schedule II opioid drug., 1 tablet By Mouth Daily, 154, cm, 06/29/23 8:27:00 EST,... Start Date: 06/29/23 Status: Ordered Tylenol 325 mg oral tablet 650 mg, 2, tablet, By Mouth, Every 6 hours, PRN, # 120 tablet, Refills 0, Tot. Refills 0, Maintenance, for pain, 01/08/23 7:03:00 EDT, Route to Pharmacy Electronically, [facility]/pharmacy #[id number], Partial fill upon patient request if the prescription is for a... Start Date: 01/08/23 Status: Ordered Problem List Condition Confirmation Course Effective Dates Status Health St atus Informant Obese class I Confirmed Active Rubella non-immune status, antepartum Confirmed Active Vital Signs Most recent to oldest [Reference Range]: 1 2 3 Weight 79.3 kg (08/02/23 6:05 AM) Oxygen Saturation [94-100 %] 100 % (08/02/23 8:30 AM) 100 % (08/02/23 8:20 AM) 99 % (08/02/23 8:10 AM) Blood Pressure [90-138/55-84 mm Hg] 121/83mm Hg (08/02/23 8:30 AM) 126/88mm Hg (08/02/23 8:20 AM) 103/68mm Hg (08/02/23 8:10 AM) Respiratory Rate [16-30 br/min] 18 br/min (08/02/23 9:49 AM) 18 br/min (08/02/23 9:48 AM) 18 br/min (08/02/23 6:18 AM) Temperature [96.8-100.4 DegF] 98.3 DegF (08/02/23 6:05 AM) Blood pressure sites Arm, right (08/02/23 6:18 AM) Temperature Route Oral (08/02/23 6:05 AM) Dry Weight 79.3 kg (08/02/23 6:05 AM) Weight Obtained Via Standing scale (08/02/23 6:05 AM) Dry Weight Obtained Via Standing scale (08/02/23 6:05 AM) Social History Social History Type Response Smoking Status Never (less than 100 in lifetime) entered on: 08/16/21 Sex Note * Prachi Langford RN: PERFORM Event Display: Discharge/Transfer Note Hospital Authored Date: [id number] Nursing Discharge Note Entered On: 08/02/2023 10:22 EST Performed On: 08/02/2023 10:22 EST by Prachi Langford RN Nursing Discharge Note 2 Discharge Time : 08/02/2023 10:22 EST Discharge Level of Care at Discharge : Home/Long-Term/Foster Care Patient Left Unit Via : Ambulatory Patient Accompanied Off Unit with : Significant other DC Instructions Provided & Signed by Pt : Yes Patient Understands D/C Instructions : Yes Patient Instructions Discharge Signed : Yes Did Pt have Specialty Bed or Wound Vac : No Prachi Langford RN - 08/02/2023 10:22 EST * Prachi Langford RN: PERFORM Event Display: Patient Education/Instruction Authored Date: [id number] Inpatient Adult Discharge Instructions [address] [address] Name: HUGH CARMICHAEL : 1995 Visit: 08/02/2023 06:03:00 Current Date: 08/02/2023 10:13 Account: [id number] Inpatient Adult Discharge Instructions We would like [...] and their families. Surveys are administered by [employer] ?? If further treatment with your primary care physician or another doctor is recommended, it is important for you to keep the appointment. Call your primary care physician or return to the Emergency Department immediately if your condition worsens, fails to improve, or new symptoms develop. If you need to find a doctor, you can call [facility] for a referral at [phone] or toll free at [phone]) or log in to [email or web address].. ?? [facility], in keeping with [facility] guidance, no longer requires face masks for staff, patientsor visitors in most situations. Similiar to time spent indoors at other locations, there is the chance that you were exposed to repiratory viruses during your time with us (such as flu or COVID-19). If you develop symptoms concerning for a viral respiratory infection, please seek testing (and treatment if indicated) from your medical provider or home test kit. ?? You can view and manage your care through the patient portal or by using a health care sandra of your choosing. [employer] is a website that allows you to securely view your medical information including your hospital discharge summary, office visit summaries, medications and follow-up visits. You can also request appointments, renew medications, and request access to your medical information using a health care sandra of your choosing, or just ask a question. You can enroll at [email or web address] or register during your next office visit. You have been discharged from [facility], Patient Care Unit: [id number]. If you have any questions regarding these instructions after you leave, please call us and we will be happy to assist you. [facility] Your Care Team Attending Physician Shelby Hassan MD Your Diagnosis Spontaneous Tests Performed Below is a partial list of the tests performed during your hospitalization. You may have had other tests and procedures not included in this list. Please discuss all test results with your provider. Beta HCG Serum (Females Only) CBC w/ Differential Hold Blue Top Tube Type and Screen Primary Care Provider Ally Voss MD Advance Directive Health Care Proxy on File No Discharge Vitals Temperature: 98.3 DegF Weight: 79.3 kg Respiratory Rate: 18 br/min ?? Systolic Blood Pressure: 121 mm Hg ?? Diastolic Blood Pressure: 83 mm Hg ?? Oxygen Saturation: 100 % ?? Studies Pending All tests and labs ordered during this hospital stay have been completed unless listed below. Please discuss all pending results with your provider listed above in these instructions. ?? Hold Gel Top Tube What to do next Instructions From Your Doctor Discharge Orders Scheduled Follow-Up Appointments Thursday 2:40 PM EST ?? With: Nidia Lubin MD Where: [facility] Dumper Bailer Operator [address] [place] [address]- Status: Pending Thursday 11:40 AM EST ?? With: Fela Good CNM Where: [facility] [address] [place] [address]- Status: Pending Thursday 8:40 AM EDT ?? With: Adelia Judge CNM Where: [facility] [address] [place] [address]- Status: Pending Discharge Medications HUGH CARMICHAEL :1995 Visit Date:08/02/2023 Medications: Please continue your medications until treatment is completed or stopped by your provider. Medications not listed below should be discontinued. Discuss any questions related to medications with your provider. What How Much When Instructions Next Dose Unchanged Acetaminophen (Tylenol 325 mg oral tablet) 2 tab(s) Oral Every 6 hours as needed for for pain Unchanged Ibuprofen (ibuprofen 600 mg oral tablet) 1 tab(s) Oral Every 6 hours Unchanged Multivitamin, ( Multivitamins with Folic Acid 1 mg oral tablet) 1 tab(s) Oral Daily Unchanged Ondansetron (ondansetron 4 mg oral tablet, disintegrating) 1 tab(s) Oral Every 6 hours as needed for Nausea & Vomiting Test Results Below is a partial list of the most recent Laboratory test results done prior to this discharge. You may have had other tests and procedures not included in this list. Please discuss all test resultswith your provider. Beta HCG Serum (Females Only) (08/02/2023) ???Blood - 1615 mIU/mL CBC w/ Differential (08/02/2023) ???WBC - 11.3 k/mm3???RBC - 4.65 m/mm3???Hgb - 13.2 Gm/dL???Hct - 41.3 %???MCV - 88.8 femtoliters???MCH - 28.4 pg???MCHC - 32.0 g/dL???Platelet Count - 176 k/mm3???RDW-SD - 47.4 femtoliters???MPV - 12.2 femtoliters???Nucleated RBC (Automated) - 0.0 #/100 WBC'S???Abs. NRBC - 0.0 k/mm3???Abs. Neut - 7.7 k/mm3???Abs. Lymph - 2.5 k/mm3???Abs. Piatt - 0.7 k/mm3???Abs. Eo - 0.3 k/mm3???Abs. Baso - 0.0 k/mm3???Neut % - 68.6 %???Lymph % - 22.1 %???Piatt % - 6.1 %???Eos % - 2.4 %???Baso % - 0.4 %???Imm Gran - 0.4 %???Abs. Imm Gran - 0.1 k/mm3 Hold Blue Top Tube (08/02/2023) ???Hold Blue Top - SPECIMEN DISCARDED AFTER 4 HOURS. Type and Screen (08/02/2023) ???Blood Type - O Positive???Antibody Screen - Negative Allergies (NKA means No Known Allergies) Peanuts??(Shrimp eel) Shrimp Problems Active Problems??(3) Obese class I? Rubella non-immune status, antepartum?? Education Materials Below is the list of Educational Leaflet Providered with your Discharge Instructions. Understanding Miscarriage: Trying Again?? Understanding Miscarriage: Diagnosis and Treatment?? Understanding Miscarriage: Recovery?? Discharge Instructions for Miscarriage?? Understanding Miscarriage: Possible Causes?? Understanding Miscarriage: Emotions?? Valuables and Belongings I fully understand and agree that [facility] accepts no responsibility for all my personal [...] are strongly encouraged to quit. Please call [facility] at [phone] or [phone]) or log in to [email or web address] for referrals to smoking cessation programs. ?? 652 Suicide & Crisis Lifeline is available 09/02 if you or someone you know needs to find a reason to keep living. By calling 429 you'll be connected to a skilled, trained counselor at a crisis center in your area. INPATIENT DISCHARGE INSTRUCTIONS SIGNATURE PAGE HUGH CARMICHAEL Location:[facility] Registration Date and Time:08/02/2023 06:03 EST Primary Care Physician: Ally Voss MD, Attending Physician: Shelby Hassan MD, HUGH OVIEDO, have received the above patient education materials/instructions and have verbalized understanding. If ambulance or transport services are being used I further acknowledge being givena choice of service. ?? If you need to contact me, please call me at this number: . Patient/Die Cast Supervisor Name: Patient/Die Cast Supervisor Signature: Relationship to Patient: Witness Name/Signature: Date: * Prachi Langford RN: PERFORM Event Display: Patient Education Leaflets Authored Date: [id number] Understanding Miscarriage: Trying Again ?? 20033 Understanding Miscarriage: Trying Again You???ve been , so you know that chances are very good it can happen again if you want it to. The choice is up to you. If you want to try again, do so when you???re ready. When to try again You may decide to try again soon. Or you may prefer to wait. To increase the chances of a healthy , your healthcare provider may suggest waiting??2 to 3??monthly period cycles. This builds up the uterine lining. As a result, the fertilized egg is more likely to implant correctly. ?? Having tests If you have repeat miscarriages, you may need a few tests. In some cases, tests can find the cause of miscarriage. Some causes, such as problems with the uterus, can often be fixed. If you have a general health problem, finding ways to control it may be all you need. ?? Healthy habits After a first miscarriage, most people go on to have a healthy . You can give a future baby the best start by eating a healthy diet. To help prevent problems during your next , stayaway from things that may place the baby at risk. While you're : ??? Don't smoke. ??? Don'tdrink alcohol. ??? Don't use drugs. ??? Don't go in hot tubs or saunas. ?? When you're ready Your health is what matters. Wait until you feel fit in your body and mind before trying to get again. Until then, enjoy your time with loved ones. Try not to let getting become your main goal. ?? Last Reviewed Date: 2022 ?? 5150-5131 [employer]. All rights reserved. This information is not intended as a substitute for professional medical care. Always follow your healthcare professional's instructions. ?? * Prachi Langford RN: PERFORM Event Display: Patient Education Leaflets Authored Date: [id number] Understanding Miscarriage: Diagnosis and Treatment ?? 82563 Understanding Miscarriage: Diagnosis and Treatment No two miscarriages are alike. Your healthcare provider will talk with you about the treatment thatis most suited for you. If you???re in good health and it's early in the , your body may expel all the tissue on its own. If this doesn't happen, your healthcare provider may advise treatment to remove the tissue. This is done to prevent infection and severe bleeding (hemorrhaging ). What happens during miscarriage Some miscarriages happen without any signs or symptoms. But most miscarriages start with bleeding and cramping. This may increase over time.??The cramps may get very strong. This is normal when a miscarriage is happening. Cramping widens the passage (cervix) at the bottom of your uterus. This is where tissue from the uterus must pass through to leave your body. Your healthcare provider may ask you for a sample of the tissue for lab testing. This is to make sure that the cells being shed from your body are normal. ?? Diagnosis To confirm the miscarriage, your healthcare provider will give you a pelvic exam. You may have a blood test to measure the levels of a hormone called HCG. You may have an ultrasound test. This is done to find out if all the tissue has passed from the uterus. If a miscarriage happens very early in the , an ultrasound is not needed. ?? Treatment If any tissue is still in the uterus, your healthcare provider may advise treatment such as: ??? Medicine. This is prescribed for you to take at home. The medicine causes the uterus to expel any remaining tissue. Take the medicine exactly as directed. ? ? Dilation and curettage (D & C). This is a procedure done in your healthcare provider???s office or at the hospital. You are given medicine to prevent pain and allow you to relax or sleep during the procedure. The healthcare provider uses tools to widen the cervix (dilation). Tissue and blood that line the uterus are then removed (curettage). Talk with your healthcare provider about the risks and benefits of these treatments. ?? If you have Rh-negative blood If your blood is Rh-negative, you may need treatment with Rho(D) immune globulin. This is done as an injection. It prevents substances in your blood from attacking the baby???s blood in a future . Your healthcare provider can tell you more. ?? Follow-up care Keep all follow-up appointments. These are to make sure that you are healing well. During these visits, mention if you???re feeling very sad or depressed. Your healthcare provider can suggest counseling or other resources to help you. ?? When to get medical care Contact your healthcare provider if you have any of these: ??? Severe pain in your stomach, pelvis,or low back ??? Vaginal fluid that has a bad odor ??? Bleeding that soaks a new sanitary pad each hour ??? Fever of 100.4??F (38??C) or higher, or as directed by your healthcare provider ?? Last Reviewed Date: 2021 ?? [id number] [employer]. All rights reserved. This information is not intended as a substitute for professional medical care. Always follow your healthcare professional's instructions. ?? * Prachi Langford RN: PERFORM Event Display: Patient Education Leaflets Authored Date: [id number] Understanding Miscarriage: Recovery ?? 30711 Understanding Miscarriage: Recovery Your body has had a shock to its system. Because of this, you may not feel well for a few days. Your body is going through changes, and you can expect mood swings. When you are ready, start back to your normal routine. Mood swings The miscarriage has caused a sudden drop in your hormone levels. This is likely to produce mood swings or make your emotions even more extreme. Stress and lack of sleep can also affect your moods. Asyour body returns to normal, these mood swings should lessen. ?? Returning to your daily routines You are the best chopper gun operator of how you feel. Do only as much as you feel up to. Also be sure to follow your healthcare provider???s directions. Keep the following in mind: ??? Return to work or your dailyroutines when you feel ready. This might be right away, or you may want to wait a few days. ??? Take showers instead of tub baths. This helps prevent infection. Your??healthcare provider will tell you when you can take baths again. ??? Don't do strenuous exercise, such as aerobics or running, untilthe bleeding slows to the rate of a normal period. ??? Wait to have sex, and don???t use tampons until your??healthcare provider says it's OK. ??? Do not douche. ?? Finding support Recognize your need to talk. Ask for support when you want it. And accept help when it???s offered.Although sharing thoughts with your partner is vital, you may also feel like talking with other family members or friends. ?? Look nearby The real experts on miscarriage are the women who have gone through it. Because miscarriage is so common, it???s likely that someone close to you has had one. You may begin to see that you???re not alone in experiencing such a loss. ?? Other sources of support Many women find it easier to talk to people who are not family or friends. If this is true for you,try contacting the following: ??? Share: and Loss Support at www.nationalshare.org??? Resolve Through Sharing at www.bereavementservices.org ??? Loss Support Program at www .pregnancyloss.org ?? When to call the healthcare provider It???s normal to be sad for a while. You may even feel sad until you???re again. Be sure to call your??healthcare provider if either of the following occur: ??? You continue to have no interest in eating or are not able to sleep. ??? Your depression does not decrease. Or you get more upset. ?? Last Reviewed Date: 2022 ?? 7573-3594 [employer]. All rights reserved. This information is not intended as a substitute for professional medical care. Always follow your healthcare professional's instructions. ?? Patient Care team information Care Team Personnel Name: Ally Voss MD Position: Reference Physician Member Role: PCP Address: Address: [address] [place] [address]- Care Team Related Persons Name: CHIRAG LOZOYA Address: [address] Address: [address] [address] [place] Name: MELVA LOZOYA Address: [address] Address: home [address] [address] [place] Name: RALEIGH BLUE Address: home [address] [address]
--- OUTSIDE RECORDS SUMMARY | 2023-08-18 17:15 | XMS_ITS | Continuity of Care Document ---
Author Name Unknown Organization [facility] Address [address] [place] [address]- Care Team Providers Care Financial Agent Name Role Phone Bipin PEDRO, Ally Primary Care Physician Encounter [facility] Date(s): 11/27/22 - 12/27/[address] [address]- Allergies, Adverse Reactions, Alerts Substance Reaction Severity [...] 11/21/22 11:24:00 EDT, Route to Pharmacy Electronically, [facility]/pharmacy #[id number], Partial fill upon patient request if the prescription is for a schedule II opioid drJeana. Start Date: 11/21/22 Stop Date: 04/20/23 Status: Ordered ferrous sulfate 325 mg oral enteric coated tablet 325 mg, 1, tablet, By Mouth, 2 times a day, # 180 tablet, Refills 3, Tot. Refills 3, Maintenance, 12/19/22 15:49:00 EDT, Route to Pharmacy Electronically, [facility]/pharmacy [...] Physician Member Role: PCP Address: Address: [address] [place] [address]- [place] Care Team Related Persons Name: CHIRAG LOZOYA Address: [address] Address: [address] [address] [place] Name: RALEIGH BLUE Address: [address] [address]
--- OUTSIDE RECORDS SUMMARY | 2023-08-18 17:15 | XMS_ITS | Continuity of Care Document ---
Author Name Unknown Organization [facility] Address [address] [place] [address]- Care Team Providers Care Band Bias Machine Operator Name Role Phone Ally Voss MD Primary Care Physician Encounter [facility] [place] Date(s): 02/20/22 - 03/22/[address] [address] Allergies, Adverse Reactions, Alerts Substance Reaction Severity Status Peanuts Shrimp eel Active Shrimp Active Immunizations Given and Recorded Vaccine Date Status Refusal Reason tetanus/diphtheria/pertussis, acel(Tdap) 12/30/21 Given Medications Colace sodium 100 mg oral capsule 100 mg, 1, capsule, By Mouth, 2 times a day, PRN, # 20 capsule, Refills 2, Tot. Refills 2, Maintenance, for constipation, 09/25/21 15:09:00 EST, Route to Pharmacy Electronically, [facility]/pharmacy #[id number], Partial fill upon patient [...] Team Personnel Name: Ally Voss MD Address: [address] [place] [address]
--- OUTSIDE RECORDS SUMMARY | 2023-08-18 17:15 | XMS_ITS | Continuity of Care Document ---
Author Name Unknown Organization [facility] Address [address] [place] [address]- Care Team Providers Care Community Health Advocate Name Role Phone Ally Voss MD Primary Care Physician Encounter [facility] [place] Date(s): 11/28/22 - 01/01/[address] [address]- Attending Physician: Not on Staff, Attending MD [...] 11/21/22 11:24:00 EDT, Route to Pharmacy Electronically, [facility]/pharmacy #[id number], Partial fill upon patient request if the prescription is for a schedule II opioid dr... Start Date: 11/21/22 Stop Date: 04/20/23 Status: Ordered ferrous sulfate 325 mg oral enteric coated tablet 325 mg, 1, tablet, By Mouth, 2 times a day, # 180 tablet, Refills 3, Tot. Refills 3, Maintenance, 12/19/22 15:49:00 EDT, Route to Pharmacy Electronically, [facility]/pharmacy #[id number], Partial fill upon patient request [...] Physician Member Role: PCP Address: Address: [address] [place] [address]- [place] Care Team Related Persons Name: CHIRAG LOZOYA Address: [address] Address: [address] [address] Name: RALEIGH BLUE Address: [address] [address]
--- OUTSIDE RECORDS SUMMARY | 2023-08-18 17:15 | XMS_ITS | Continuity of Care Document ---
Author Name Unknown Organization [facility] Address [address] [place] [address]- Care Team Providers Care Morals Squad Police Officer Name Role Phone Ally Voss MD Primary Care Physician [place] [facility] [place]/02/23 - 03/15/[address] [address]- Attending Physician: Not on Staff, Attending MD [...] Reference Physician Member Role: PCP Address: Address: [address] [place] [address]- Care Team Related Persons Name: CHIRAG LOZOYA Address: [address] Address: home [address] [place] [address] [place] Name: MELVA LOZOYA Address: [address] Address: [address] [address] [place] Name: RALEIGH BLUE Address: [address] [address]
--- OUTSIDE RECORDS SUMMARY | 2023-08-18 17:15 | XMS_ITS | Continuity of Care Document ---
Author Name Unknown Organization [facility] Address [address], [address] [place] [address]- Care Team Providers Care Linux Devops Engineer Name Role Phone Not on Staff, PCP Primary Care Physician Unavail able Encounter [facility] [place] Date(s): 09/12/21 - [facility]12/[facility] [address] [place], [place] [address] Allergies, Adverse Reactions, Alerts No Known Allergies Medications Colace sodium 100 mg oral capsule 100 mg, 1, capsule, By Mouth, 2 times a day, PRN, # 20 capsule, Refills 2, Tot. Refills 2, Maintenance, for constipation, 09/25/21 15:09:00 EST, Route to Pharmacy Electronically, [facility]/pharmacy #[id number], Partial fill upon patient request if the prescriptio... Start Date: 09/25/21 Status: Ordered Multivitamins with Folic Acid 1 mg oral tablet 1 tablet, By Mouth, Daily, # 90 tablet, 3 Refills, Maintenance, 08/16/21 9:20:00 EST, Tablet, [facility]/pharmacy #[id number], Partial fill upon patient request if the prescription is for a schedule II opioid drug., 1 tablet By Mouth Daily Start Date: 08/16/21 Status: Ordered Unisom 25 mg oral tablet 1 tablet = 25 mg, By Mouth, Daily at bedtime, for 30 days, 15 to 30 minutes before bed, # 30 tablet, 1 Refills, Acute 10/15/21 9:21:00 EDT, 08/16/21 9:21:00 EST, Tablet, [facility]/pharmacy #[id number], Partial fill upon patient request if [...]
--- OUTSIDE RECORDS SUMMARY | 2023-08-18 17:15 | XMS_ITS | Continuity of Care Document ---
Author Name Unknown Organization [facility] Address [address] [place] [address]- Care Team Providers Care Cut In Station Operator Name Role Phone Not on Staff, PCP Primary Care Physician Unavail able Encounter [facility] [place] Date(s): 10/03/21 - 11/02/21 [facility] [address] [address]- Allergies, Adverse Reactions, Alerts No Known Allergies [...]
--- OUTSIDE RECORDS SUMMARY | 2023-08-18 17:15 | XMS_ITS | Continuity of Care Document ---
Author Name Unknown Organization [facility] Address [address] [place], [address] [address]- Care Team Providers Care Tankroom Worker Name Role Phone Bipin PEDRO, Ally Primary Care Physician [place] [facility] [place]10[place]22 - 04/09/22 [facility] [address] [facility] [facility] [address] [place], [address]th [address] [address]- Allergies, Adverse Reactions, Alerts Substance Reaction Severity [...] give 325mg per patient preference and re-dose [id number] within 4 hours, if needed. Patient should [...] EST, Route to Pharmacy Electronically, [facility]/pharmacy #[id number], Partial fill upon patient request if the [...] Refills, Maintenance, 03/17/22 13:33:00 EDT, Tablet, [facility]/pharmacy #[id number], Partial fill upon patient request if the [...] Team Personnel Name: Ally Voss MD Address: [address] [place] [address]
--- OUTSIDE RECORDS SUMMARY | 2023-08-18 17:15 | XMS_ITS | Continuity of Care Document ---
Author Name Unknown Organization [facility] Address [address] [place] [address]- Care Team Providers Care Decorative Cutting Machine Tender Name Role Phone Bipin PEDRO, Ally Primary Care Physician [place] [facility] [place]28[place] - 12/28/[address] [address]- Allergies, Adverse Reactions, Alerts Substance Reaction Severity [...] 11/21/22 11:24:00 EDT, Route to Pharmacy Electronically, [facility]/pharmacy #[id number], Partial fill upon patient request if the prescription is for a schedule II opioid drJeana. Start Date: 11/21/22 Stop Date: 04/20/23 Status: Ordered ferrous sulfate 325 mg oral enteric coated tablet 325 mg, 1, tablet, By Mouth, 2 times a day, # 180 tablet, Refills 3, Tot. Refills 3, Maintenance, 12/19/22 15:49:00 EDT, Route to Pharmacy Electronically, [facility]/pharmacy #[id number], Partial fill upon patient request [...] Physician Member Role: PCP Address: Address: [address] [place] [address]- [place] Care Team Related Persons Name: CHIRAG LOZOYA Address: [address] Address: home [address] [address] [place] Name: RALEIGH BLUE Address: [address] [address]
--- OUTSIDE RECORDS SUMMARY | 2023-08-18 17:15 | XMS_ITS | Continuity of Care Document ---
Author Name Unknown Organization [facility] Address [address] [place] [address]- Care Team Providers Care Superior Court Justice Name Role Phone Ally Voss MD Primary Care Physician Encounter [facility] [place] Date(s): 08/27/22 - 09/26/[address] [address]- Allergies, Adverse Reactions, Alerts Substance Reaction Severity [...] 07/29/22 13:21:00 EST, Route to Pharmacy Electronically, [facility]/pharmacy #[id number], Partial fill upon patient requestif the prescription is for a schedule II opioid marcus... Start Date: 07/29/22 Status: Ordered ondansetron 4 mg oral tablet, disintegrating 1 tablet = 4 mg, By Mouth, Every 6 hours, PRN Nausea & Vomiting, # 20 tablet, 1 Refills, Maintenance, 07/29/22 13:17:00 EST, Tablet, [facility]/pharmacy #[id number], Partial fill upon patient request if [...] Physician Member Role: PCP Address: Address: [address] [place] [address]- Care Team Related Persons Name: CHIRAG LOZOYA Address: [address] Address: home [address] [place] [address] [place] Name: RALEIGH BLUE Address: [address] [address]
--- OUTSIDE RECORDS SUMMARY | 2023-08-18 17:15 | XMS_ITS | Continuity of Care Document ---
Author Name Unknown Organization [facility] Address [address] [place] [address]- Care Team Providers Care Census Enumerator Name Role Phone Ally Voss MD Primary Care Physician En[place] [facility] [place] Date(s): 02/03/22 - 05/07/[address] [address]- Attending Physician: Not on Staff, Attending MD [...] give 325mg per patient preference and re-dose [id number] within 4 hours, if needed. Patient should [...] 09/25/21 15:09:00 EST, Route to Pharmacy Electronically, [facility]/pharmacy #[id number], Partial fill upon patient request if the [...] Refills, Maintenance, 03/17/22 13:33:00 EDT, Tablet, [id number], Partial fill upon patient request if the [...] Personnel Name: Ally Voss MD Address: Address: [address] [place] [address]
--- OUTSIDE RECORDS SUMMARY | 2023-08-18 17:15 | XMS_ITS | Continuity of Care Document ---
Author Name Unknown Organization [facility] Address [address] [place] [address]- Care Team Providers Care Mining Machinery Assembler Name Role Phone Ally Voss MD Primary Care Physician [place] [facility] [place](s[place] 09/03/22 - 10/08/[address] [address]- Attending Physician: Not on Staff, Attending MD [...] 07/29/22 13:21:00 EST, Route to Pharmacy Electronically, [facility]/pharmacy #[id number], Partial fill upon patient [...] Care team information Care Team Personnel Name: lAly Voss MD Position: Reference Physician Member Role: PCP Address: Address: [address] [place] [address]- Care Team Related Persons Name: CHIRGA LOZOYA Address: [address] Address: home [address] [place] [address] [place] Name: RALEIGH BLUE Address: [address] [address]
--- OUTSIDE RECORDS SUMMARY | 2023-08-18 17:15 | XMS_ITS | Continuity of Care Document ---
Author Name Unknown Organization [facility] Address [address] [place] [address]- Care Team Providers Care Food Service Manager Name Role Phone Bipin PEDRO, Ally Primary Care Physician [place] [facility] [place] Date(s): 03/24/22 - 03/26/[address] [address] Discharge Disposition: A-D/C Home Attending Physician: Stephaine Luna DO Admitting Physician: Stephanie Luna DO Referring Physician: Stephanie Luna DO Allergies, Adverse Reactions, Alerts Substance Reaction [...] give 325mg per patient preference and re-dose [id number] within 4 hours, if needed. Patient should [...] 09/25/21 15:09:00 EST, Route to Pharmacy Electronically, [facility]/pharmacy #[id number], Partial fill upon patient request if the [...] Refills, Maintenance, 03/17/22 13:33:00 EDT, Tablet, [id number], Partial fill upon patient request if the prescription is for a schedule II opioid drug., 1 tablet By Mouth Daily, 154.9, cm, 03/17/22 13... Start Date: 03/17/22 Status: Ordered Problem List Condition Effective Dates Status Health Status Inform ant Abnormal first trimester screen(Confirmed) Active Obese class II(Confirmed) Active Obesity in (Confirmed) Active Vital Signs Most recent to oldest [Reference Range]: 1 2 3 Height 154 cm (03/26/22 9:00 AM) 154 cm (03/26/22 4:15 AM) 154 cm (03/26/22 12:00 AM) Weight 83.1 kg (03/24/22 7:11 PM) 83.1 kg (03/24/22 1:33 PM) Oxygen Saturation [94-100 %] 100 % (03/26/22 4:15 AM) 100 % (03/26/22 12:00 AM) 100 % (03/25/22 10:00 PM) Pulse Rate [55-90 bpm] 93 bpm *H* (03/26/22 9:00 AM) 81 bpm (03/26/22 4:15 AM) 87 bpm (03/26/22 12:00 AM) Body Mass Index [18.5-24.99] 35.04 *>HHI* (03/24/22 7:11 PM) Blood Pressure [90-138/55-84 mm Hg] 125/66mm Hg (03/26/22 9:00 AM) 115/63mm Hg (03/26/22 4:15 AM) 122/77mm Hg (03/26/22 12:00 AM) Respiratory Rate [16-30 br/min] 18 br/min (03/26/22 9:00 AM) 17 br/min (03/26/22 4:15 AM) 18 br/min (03/26/22 12:00 AM) Temperature [96.8-100.4 DegF] 98.1 DegF (03/26/22 9:00 AM) 98.1 DegF (03/25/22 8:00 PM) 97.8 DegF (03/25/22 4:20 PM) Mode of Delivery (Oxygen) Room air (03/26/22 4:15 AM) Room air (03/26/22 12:00 AM) Room air (03/25/22 10:00 PM) Blood pressure sites Arm, right (03/24/22 7:11 PM) Arm, left (03/24/22 1:46 PM) Temperature Route Oral (03/26/22 9:00 AM) Oral (03/25/22 8:00 PM) Oral (03/25/22 4:20 PM) Dry Weight 83.1 kg (03/24/22 7:11 PM) 83.1 kg (03/24/22 1:33 PM) Weight Obtained Via Standing scale (03/24/22 1:33 PM) Dry Weight Obtained Via Standing scale (03/24/22 1:33 PM) Social History Social History Type Response Smoking Status Never (less than 100 in lifetime) entered on: 08/16/21 Sex Care Team Personnel Name: Ally Voss MD Address: [address] [place] [address]
--- OUTSIDE RECORDS SUMMARY | 2023-08-18 17:15 | XMS_ITS | Continuity of Care Document ---
Author Name Unknown Organization [facility] Address [address] [place] [address]- Care Team Providers Care Chemical Engineering Professor Name Role Phone Bipin PEDRO, Ally Primary Care Physician Encounter [facility] Date(s): 06/09/23 - 07/09/[address] [address]- Allergies, Adverse Reactions, Alerts Substance Reaction Severity Status Peanuts Shrimp eel Active Shrimp Active Immunizations Given and Recorded Vaccine Date Status Refusal Reason Measles/Mumps/Rubella Virus Vaccine 01/09/23 Given tetanus/diphtheria/pertussis, acel(Tdap) 12/30/21 Given Medications ibuprofen 600 mg oral tablet 600 mg, 1, tablet, By Mouth, Every 6 hours, # 50 tablet, Refills 0, Tot. Refills 0, Maintenance, 01/08/23 7:03:00 EDT, Route to Pharmacy Electronically, [facility]/pharmacy #[id number], Partial fill upon patient request if the prescription is for a schedule II opi... Start Date: 01/08/23 Status: Ordered Multivitamins with Folic Acid 1 mg oral tablet 1 tablet, By Mouth, Daily, # 90 tablet, 2 Refills, Maintenance, 06/29/23 8:53:00 EST, [facility]/pharmacy #[id number], Partial fill upon patient request if the prescription is for a schedule II opioid drug., 1 tablet By Mouth Daily, 154, cm, 06/29/23 8:27:00 EST,... Start Date: 06/29/23 Status: Ordered pyridoxine 25 mg oral tablet 1 tablet = 25 mg, By Mouth, 3 times a day, for 14 days, # 42 tablet, 1 Refills, Acute 07/27/23 8:53:00 EST, 06/29/23 8:53:00 EST, Tablet, [facility]/pharmacy #[id number], Partial fill upon patient request if the prescription is for a schedule II opioid drug., 154,... Start Date: 06/29/23 Stop Date: 07/27/23 Status: Ordered Tylenol 325 mg oral tablet 650 mg, 2, tablet, By Mouth, Every 6 hours, PRN, # 120 tablet, Refills 0, Tot. Refills 0, Maintenance, for pain, 01/08/23 7:03:00 EDT, Route to Pharmacy Electronically, [facility]/pharmacy #[id number], Partial fill upon patient request if the prescription is for a... Start Date: 01/08/23 Status: Ordered Unisom 25 mg oral tablet 1 tablet = 25 mg, By Mouth, Daily at bedtime, PRN for sleep, # 16 tablet, 0 Refills, Acute 238:53:00 EST, 06/29/23 8:53:00 EST, Tablet, [facility]/pharmacy #[id number], Partial fill upon patient request ifthe prescription is for a schedule II opioid drug.,... Start Date: 06/29/23 Stop Date: 07/18/23 Status: Ordered Problem List Condition Confirmation Course Effective Dates Status Health St atus Informant Obese class I Confirmed Active Rubella non-immune status, antepartum Confirmed Active Social History Social History Type Response Smoking Status Never (less than 100 in lifetime) entered on: 08/16/21 Sex Patient Care team information Care Team Personnel Name: Ally Voss MD Position: Reference Physician Member Role: PCP Address: Address: [address] [place] [address]- Care Team Related Persons Name: CHIRAG LOZOYA Address: [address] Address: home [address] [address] [place] Name: MELVA LOZOYA Address: [address] Address: home [address] [address] [place] Name: RALEIGH BLUE Address: [address] [address]
--- OUTSIDE RECORDS SUMMARY | 2023-08-18 17:16 | XMS_ITS | Continuity of Care Document ---
Author Name Unknown Organization [facility] Address [address] [place] [address]- Care Team Providers Care Biosecurity Officer Name Role Phone Bipin PEDRO, Ally Primary Care Physician [place] [facility] [place] - 02/04/[address] [address]- Allergies, Adverse Reactions, Alerts Substance Reaction Severity [...] 01/08/23 7:03:00 EDT, Route to Pharmacy Electronically, [facility]/pharmacy #[id number], Partial fill upon patient request if the prescription is for a schedule II opi... Start Date: 01/08/23 Status: Ordered Tylenol 325 mg oral tablet 650 mg, 2, tablet, By Mouth, Every 6 hours, PRN, # 120 tablet, Refills 0, Tot. Refills 0, Maintenance, for pain, 01/08/23 7:03:00 EDT, Route to Pharmacy Electronically, [facility]/pharmacy #[id number], Partial fill upon [...] Reference Physician Member Role: PCP Address: Address: [address] [place] [address]- Care Team Related Persons Name: CHIRAG LOZOYA Address: [address] Address: home [address] [address] [place] Name: MELVA LOZOYA Address: [address] Address: home [address] [address] [place] Name: RALEIGH BLUE Address: home [address] [address]
--- OUTSIDE RECORDS SUMMARY | 2023-08-18 17:16 | XMS_ITS | Continuity of Care Document ---
Author Name Unknown Organization [facility] Address [address] [place] [address]- Care Team Providers Care Locomotive Oiler Name Role Phone Ally Voss MD Primary Care Physician [place] [facility] [place] 10[place] - 02/26/[address] [address]- Attending Physician: Not on Staff, Attending MD [...] 09/25/21 15:09:00 EST, Route to Pharmacy Electronically, [facility]/pharmacy #[id number], Partial fill upon patient request if [...]
[2023-08-18] MEDS: 0.9 % Sodium Chloride 1,000 ML 999 ML IV ×2 (17:59→18:00)
[2023-08-18] MEDS: Metoclopramide HCl 10 MG/2 ML VIAL IVPUSH (18:00)
[2023-08-18] MEDS: Ketorolac Tromethamine 30 MG/ML VIAL IVPUSH (18:00)
[2023-08-18] MEDS: diphenhydrAMINE HCL 50 MG/ML VIAL 25 MG IVPUSH (18:01)
[2023-08-18 18:02] VITALS: BP 124/86; PULSE 122; RESP 16; TEMP 37.2; O2SAT 100
[2023-08-18 20:26] VITALS: BP 117/79; PULSE 98; RESP 16; O2SAT 99
[2023-08-18 20:36] LABS: Appearance Urine Cloudy; Color Urine Dark Yellow; Glucose Urine UA Negative (Negative); Leukocyte Esterase Urine Negative (Negative); Nitrite Urine Negative (Negative); Specific Gravity - Urine >= 1.030 (1.005-1.025); UMIC TRIGGER UACC YES; Urine Blood Large (3+) (Negative); Urine Ketones 40 mg/dL (Negative); Urine Protein 30 (1+) mg/dL (Neg-Trace)
[2023-08-18 20:38] LABS: UPreg QC Valid YES; Urine Pregnancy NEGATIVE (NEGATIVE)
[2023-08-18 20:46] LABS: Bacteria Urine 4+ (None Seen); Squamous Epithelial Cell Urine >20 /HPF (0-2); UACC Culture Trigger YES
== END 2023-08-18 21:32 | disposition home or self-care (01) ==
PROVIDERS: Nurse Practitioner Family; Physician Assistant; Emergency Provider Emergency Medicine; PCP Family Medicine
DX: R07.89 Other chest pain (principal); B34.9 Viral infection, unspecified; R11.2 Nausea with vomiting, unspecified; R19.7 Diarrhea, unspecified; R51.9 Headache, unspecified; Z11.52 Encounter for screening for COVID-19; Z79.899 Other long term (current) drug therapy
CPT/HCPCS: 36415; 70450; 80048; 80076; 81001; 81025; 83690; 84484; 84702; 85025; 85379; 87086; 87502; 87635; 93005; 96361; 96374; 96375; 99285; J1200; J1885; J2765

== ENCOUNTER → 2023-08-18 08:34 | Outpatient (BNV) | payer MEDICAID, SELFPAY | PROVIDERS: PCP Family Medicine; Visit Provider Internal Medicine Cardiovascular Disease | DX: R00.0 Tachycardia, unspecified (principal) | CPT/HCPCS: 93010 ==

== ENCOUNTER 2023-12-09 11:40 | Outpatient (REF) | payer MEDICAID, SELFPAY ==
[2023-12-09 14:43] LABS: MANUAL DIFF FLAG NO
[2023-12-09 15:13] LABS: Basophils Absolute Auto 0.1 X10*3/uL (0.0-0.2); Basophils Percent Auto 0.5 % (0-2); Eosinophils Absolute Auto 0.2 X10*3/uL (0.0-0.4); Eosinophils Percent Auto 1.7 % (0-4); Hematocrit 40.8 % (37.0-47.0); Hemoglobin 13.7 g/dl (12.0-16.0); Imm Gran Abs Auto 0.05 X10*3/uL (0.00-0.03); Imm Gran Pct Auto 0.4 % (0.0-0.4); Lymphocytes Absolute Auto 2.3 X10*3/uL (1.2-4.9); Lymphocytes Percent Auto 18.8 % (20-40); Mean Corpuscular HGB Conc 33.6 g/dl (31.0-35.0); Mean Corpuscular Hemoglobin 29.2 pg (27.0-33.0); Mean Platelet Volume 12.4 fL (9.4-12.3); Monocytes Absolute Auto 0.7 X10*3/uL (0.1-1.2); Monocytes Percent Auto 5.8 % (2-11); Neutrophils Absolute Auto 8.7 x10*3/uL (2.0-8.3); Neutrophils Percent Auto 72.8 % (45-73); Platelet Count 200 X10*3/uL (160-400); Red Blood Count 4.69 X10*6/uL (4.20-5.50); Red Cell Distribution Width 15.8 % (11.0-16.0)
[2023-12-09 17:47] LABS: Alanine Aminotransferase 15 U/L (0-31); Albumin Level 4.2 g/dL (3.5-5.0); Alkaline Phosphatase 55 U/L (39-117); Anion Gap 14 (12-20); Aspartate Amino Transferase 17 U/L (5-31); Bilirubin Total 0.5 mg/dL (0.0-1.0); Blood Urea Nitrogen 8 mg/dL (9-16); Calcium 9.5 mg/dL (8.4-10.2); Carbon Dioxide 21 mmol/L (22-29); Chloride 106 mmol/L (96-108); Estimated Glomerular Filt Rate > 60; Glucose Random 91 mg/dL (60-115); Potassium 3.4 mmol/L (3.3-5.1); Sodium 138 mmol/L (135-145)
[2023-12-09 17:47] LABS: Protein/Creatinine Ratio, Ur 0.08 (<0.2); Total Protein Urine Random 26 mg/dL (<12)
[2023-12-09 17:48] LABS: TSH reflex Free T4 0.64 uIU/mL (0.32-4.0); Vitamin D 25-OH Total 25.1 ng/mL (>30)
== END 2023-12-09 11:41 | disposition home or self-care (01) ==
LOC: HO.CHCLDS 11:40
PROVIDERS: Visit Provider Family Medicine
DX: R53.83 Other fatigue (principal)
CPT/HCPCS: 36415; 80053; 82306; 82570; 84156; 84443; 84550; 85025

== ENCOUNTER 2023-12-15 14:19 | Outpatient (AMB) | payer MEDICAID, SELFPAY ==
--- NOTE | 2023-12-15 14:23 | MHC.OFFVIS ---
Intake Visit Reasons: urinary incontinence Allergies No Known Allergies Allergy (Verified 08/18/23 08:30) Medication List - Last Reconciled 12/15/23 by Shlomo Wallace MD clobetasol 0.05% 1 appl topical DAILY PRN clobetasol 0.05% 1 appl topically once every 5 days, apply to dry flaky scalp, leave on for 15 minutes then rinse ladder and wash off ondansetron 4 mg PO Q8H PRN HPI Comments Details: Arlet is a pleasant female. She is a patient of Dr. Voss. She has seen for the following urologic conditions - urinary urgency with incontinence Progressive Has had urinary urgency Occasional accidents UA today 1+ leukocytes Plan for suppression doxycycline for 3 months. We will get renal bladder ultrasound. If does not respond will need cystoscopy [facility] Social History Patient Tobacco Use Status: Never used Tobacco Review of Systems Const Denies chills and Denies fever(s) Card Reports no additional complaints and Denies syncope Resp Denies cough GI Denies abdominal pain and Denies heartburn Reports as per HPI and Denies change in libido Neuro Denies syncope Psych Denies change in libido Endo Denies change in libido Physical Exam Const General: cooperative, healthy appearing, comfortable and no acute distress Orientation/consciousness: patient oriented x3 HEENT Face and sinus: Yes normal facial exam Mouth: moist mucous membranes Neck Neck: Yes normal visual inspection, Yes full ROM and Yes trachea midline Chest Chest palpation & inspection: normal inspection of the chest Resp Effort & Inspection: normal respiratory effort, able to speak in complete sentences and no respiratory distress GI Inspection: Yes normal to inspection Back/Spine/Pelvis Cervical Spine: normal cervical lordosis Thoracic/Lumbar Spine: thoracic and lumbar spine normal to inspection Skin General skin exam: no rashes or lesions noted Neuro General: patient oriented x3, gait normal, tone normal and moves all extremities Extrem General: Yes normal to inspection and Yes capillary refill normal Office Procedures Post Void Residual Post Residual Void Post Void Residual (PVR): 0 [id number] Void Residual by ultrasound Results AMB Urinalysis, Automated UA Leukoctes 70 Shen/uL Last Edit by Melvi Gracia CMA on 12/15/23 14:41 UA Nitrite Negative Last Edit by Melvi Gracia CMA on 12/15/23 14:41 UA Urobilinogen 0.2 mg/dL Last Edit by Melvi Gracia CMA on 12/15/23 14:41 UA Protein 30 mg/dL Last Edit by Melvi Gracia CMA on 12/15/23 14:41 UA pH 6.0 Last Edit by Melvi Gracia, JENNIFER on 12/15/23 14:41 UA Blood 0 Sixto/uL Last Edit by Melvi Gracia, JENNIFER on 12/15/23 14:41 UA Specific [place] 1.030 Last Edit by Melvi Gracia, JENNIFER on 12/15/23 14:41 UA Ketone Positive Last Edit by Melvi Gracia CMA on 12/15/23 14:41 5 Melvi Gracia 12/15/23 14:41 UA Bilirubin 1 mg/dL Last Edit by Melvi Gracia CMA on 12/15/23 14:41 UA Glucose 0 mg/dL Last Edit by Melvi Gracia CMA on 12/15/23 14:41 Results Reviewed Results Reviewed: Laboratory Last Values Urine pH (Auto) 6.0 12/15/23 14:38 Specific [place] (Auto) 1.030 12/15/23 14:38 Urine Protein (Auto) 30 mg/dL 12/15/23 14:38 Glucose (UA)(Auto) 0 mg/dL 12/15/23 14:38 Urine Ketones (Auto) Positive 12/15/23 14:38 Urine Blood (Auto) 0 Sixto/uL 12/15/23 14:38 Urine Nitrite (Auto) Negative 12/15/23 14:38 Urine Bilirubin (Auto) 1 mg/dL 12/15/23 14:38 Urine Urobilinogen (Auto) 0.2 mg/dL 12/15/23 14:38 Leukocyte Esterase (Auto) 70 Shen/uL 12/15/23 14:38 Assessment & Plan Assessment & Plan (1) Urinary urgency: Code(s): R39.15 - Urgency of urination Category: Medical Plan Doxycycline suppression Three-month follow-up nurse-practitioner Orders: Orders AMB Post Void Residual by ultrasound 12/15/23 R39.15 - Urgency of urination AMB Urinalysis Automated 12/15/23 Z13.9 - Encounter for screening, unspecified Medications: New doxycycline hyclate 50 mg PO DAILY 90 tabs 0RF 90 days R39.15 - Urgency of urination, N30.90 - Cystitis, unspecified without hematuria Patient Instructions: Imaging studies, laboratory and physical exam results were discussed and reviewed in detail. No major barriers to patient understanding were identified. An opportunity to ask questions regarding the treatment plan was provided. All questions were answered. The patient expressed understanding and agreement with the above treatment plan. The patient is aware they should contact our office by phone for worsening of their current condition or the appearance of new urologic symptoms. Compliance is encouraged with any medications and followup testing that is ordered. It is a privilege to participate in the urologic care of your patient. If you have any questions or concerns regarding treatment for the above conditions, or other urologic issues, please do not hesitate to contact me. The office telephone contact is [phone]. This note is constructed using voice recognition software. While every effort has been made to ensure accuracy design intern errors may have been included. Yours sincerely, Dr Shlomo Wallace MD, [facility] - Urology Providers of Expert, Compassionate Care for the Genitourinary System Coding Level of Care Code New Pt Level 4 (75948) Diagnoses Urinary urgency R39.15 CPT Codes Post Residual Void - PVR CPT Code: 24629-[id number] Void Residual by ultrasound ([id number])
== END 2023-12-15 15:00 | disposition home or self-care (01) ==
PROVIDERS: PCP Family Medicine; Visit Provider Urology
DX: R39.15 Urgency of urination (principal)
CPT/HCPCS: 99204

== ENCOUNTER → 2023-12-15 14:19 | Outpatient (BNVA) | payer MEDICAID, SELFPAY | PROVIDERS: PCP Family Medicine; Visit Provider Urology | DX: R39.15 Urgency of urination (principal) | CPT/HCPCS: 51798; 81003; 99202 ==

== ENCOUNTER 2024-11-28 14:24 | Outpatient (REF) | payer MEDICAID, SELFPAY ==
--- OUTSIDE RECORDS SUMMARY | 2024-11-28 14:36 | XMS_ITS | Encounter Summary ---
Author Organization [employer] Address [address] [place] [address] Care Team Providers Care Electrical Instrument Repairer Name Role Phone Ally Voss MD Primary Care Provider [phone] Reason for Visit * Reason Onset Date Comments Care Management 11/28/2024 C3CM follow up c all Encounter Details Date Type Department Care Team ([facility] Contact Info) Description 11/28/2024 Telephone [facility] MEDICINE [address] [place] [address] Ally Voss MD [address] [place] [address] [phone] Care Management (C3CM follow up call) Social History Tobacco Use Types Packs/Day Years Used Date Smoking Tobacco: Never Passive Smoke Exposure: Never Smokeless Tobacco: Never Depression Answer Date Recorded Patient Health Questionnaire-9 Score 6 06/23/2024 Patient Health Questionnaire-9 Score 6 06/23/2024 Last PHQ-9: Questionnaire Data Not on file 1 08/24/2023 Housing Stability Answer Date Recorded What is your housing situation today? I have javier negrete 10/12/[address] you li ve. Do you have problems with any of the following? None of the above 10/12/2023 Food Insecurity Answer Date Recorded Within the past 12 months, y ou worried that your food would run out before you got money to buy more: Never True 05/05/2023 Within the past 12 months,th e food you bought just didn't last and you didn't have enough money to get more: Never True Transportation Answer Date Recorded In the past 12 months, has l ack of transportation kept you from medical appts, meetings, work or from getting things needed for daily living? No 05/05/2023 Utilities Answer Date Recorded In the past 12 months, has t he electric, gas, oil or water company threatened to shut off services in your home? No 05/05/2023 Depression Answer Date Recorded Patient Health Questionnaire-2 Score 1 06/23/2024 Comments No Sex and Gender Information Value Date Recorded Sex Assigned at Female 05/19/2022 10:39 AM EDT Legal Sex Female 10:39 AM EDT Gender Identity Female 05/19/2022 10:39 AM EDT Sexual Orientation Straight 11/21/2024 10 :14 AM EDT documented as of this encounter Miscellaneous Notes * Telephone Encounter - Juliet Yeager - 11/28/2024 10:14 AM EDT KEMAL Yeager RN placed outbound call to patient. Patient's name, and address confirmed.Patient states is doing well with no recent illnesses or emergency room visits. Patient and are doing well. is scheduled for 6 month appointment 12/09/24 1:15pm no concerns for the provider. is formula feeding well and gaining weight and meeting developmental milestones. Patientneeds to call and reschedule infant's US hips, Wrap Turner reminder her of doing this. Patient states that she is scheduled for appointment with OB tomorrow. Patient also was contacted by process steward office and believes that she is scheduled for an appointment in February, she cannot remember exact appointment details at this time. No further questions or concerns. CM reinforced direct contact information or CHW for any additional questions or concerns. Education provided on Walk-In Urgent Care located in [facility] [place] of [facility]. Patient provided with after-hours line for [facility], , which offer night time triage service and option to transfer to weight loss consultant provider if needed. Patient verbalizes understanding, and able to repeat back to sign writer hand. A follow up call will be placed within 10 days, patientagrees with plan. documented in this encounter Plan of Treatment Not on file documented as of this encounter Visit Diagnoses Not on filedocumented in this encounter Additional Health Concerns Assessment Noted Time PHQ-9 Depression Total Score: 6 06/23/20 24 10:07 AM EST documented as of this encounter Care Teams Electrical Instrument Repairer Relationship Specialty Start Date End Date Ally Voss MD [address] [place] [address] PCP - General Family Medicine 03/18/21 Juliet Yeager Wrap Turner 06/30/24 documented as of this encounter
--- OUTSIDE RECORDS SUMMARY | 2024-11-28 14:36 | XMS_ITS | Encounter Summary ---
Author Organization [email or web address] Address [address] [place] [address] 7 [place] [address] Care Team Providers Care Industrial Custodian Name Role Phone Ally Voss MD Primary Care Provider [phone] Reason for Referral * Imaging (Routine) - Pending Review Specialty Diagnoses / Procedures Referred By Twyla persaud Referred To Contact Radiology Diagnoses Periumbilical pain, chronic Procedures CT Abdomen Pelvis w/ and w/o Contrast Walter Dumont MD [address] [place] [address] Phone: tel: fax: Referral ID Status Reason Start Date Expiration Date V isits Requested Visits Authorized [id number] Pending Review 11/27/2024 11/27/2025 1 1 Encounter Details Date Type Department Care Team (Latest Contact Info) Description 11/25/2024 11:20 AM EDT Office Visit [facility] [address] [place] [address] Walter Dumont MD [address] [place], [place] [phone] Periumbilical pain, chronic (Primary Dx) Social History Tobacco Use Types Packs/Day Years Used Date Smoking Tobacco: Never Passive Smoke Exposure: Never Smokeless Tobacco: Never Tobacco Cessation:Counseling Given: Not Answered Depression Answer Date Recorded Patient Health Questionnaire-9 [...] AM EDT documented as of this encounter Last Filed Vital Signs Vital Sign Reading Time Taken Comments Blood Pressure 130/88 11/25/2024 11:32 AM EDT Pulse 80 11/25/2024 11:32 AM EDT Temperature 36.6 ??C (97.8 ??F) 11/25/2024 11:32 AM E DT Respiratory Rate 20 11/25/2024 11:32 AM EDT Oxygen Saturation 98% 11/25/2024 11:32 AM EDT Inhaled Oxygen Concentration - - Weight 77.6 kg (171 lb) 11/25/2024 11:32 AM EDT Height 154.9 cm (5' 1 ) 11/25/2024 11:32 AM EDT Body Mass Index 32.31 11/25/2024 11:32 AM EDT documented in this encounter Progress Notes * Walter Dumont MD - 11/25/2024 11:20 AM EDT Images from the original note were not included. Subjective Patient ID: Arlet Kemp is a 29 y.o. female who presents for chronic periumbilical pain. Arlet is a 29 y/o female patient of here with for sick visit due to frankie umbilical abdominal pain since she had her last 2 pregnancies.Last one was 2-3 months ago.Denies missed menses. Denies menorrhagia,weight loss, fevers,chills.has had a total of 6 pregnancies , last 3 in the past 3 years.Last delivery via c section. Had visits with OB,scar well healed etc.. Abdominal Pain This is a chronic problem. The current episode started more than 1 month ago. The onset quality is undetermined. The problem occurs 2 to 4 times per day. The problem has been unchanged. The pain is located in the periumbilical region. The pain is at a severity of 4/10. The pain is mild. The qualityof the pain is dull, a sensation of fullness, cramping and aching. The abdominal pain does not radia te. Pertinent negatives include no anorexia, arthralgias, constipation, diarrhea, dysuria, fever, frequency, hematochezia, hematuria, melena, myalgias, nausea, vomiting or weight loss. The pain is aggravated by certain positions. The pain is relieved by Certain positions. She has tried nothing for the symptoms. Her past medical history is significant for abdominal surgery. There is no history of Crohn's disease, gallstones, GERD, irritable bowel syndrome, pancreatitis, PUD or ulcerative colitis. Review of Systems Constitutional: Negative for fever and weight loss. Gastrointestinal: Positive for abdominal pain. Negative for anorexia, constipation, diarrhea, hematochezia, melena, nausea and vomiting. Endocrine: Negative for polyuria. Genitourinary: Negative for difficulty urinating, dyspareunia, dysuria, flank pain, frequency, genital sores, hematuria, menstrual problem, pelvic pain, urgency, vaginal bleeding and vaginal discharge. Musculoskeletal: Negative for arthralgias and myalgias. Objective BP 130/88 (BP Location: Left arm, Patient Position: Sitting, BP Cuff Size: Adult) Pulse80 Temp 97.8 ??F (36.6 ??C) (Oral) Resp 20 Ht 5' 1 (1.549 m) Wt 171 lb (77.6 kg) LMP 10/22/2024 (Approximate) SpO2 98% BMI 32.31 kg/m?? Physical Exam Constitutional: General: She is not in acute distress. Appearance: Normal appearance. She is not ill-appearing. HENT: Head: Normocephalic. Right Ear: Tympanic membrane and ear canal normal. Left Ear: Tympanic membrane and ear canal normal. Nose: Nose normal. Mouth/Throat: Mouth: Mucous membranes are moist. Pharynx: No oropharyngeal exudate or posterior oropharyngeal erythema. Eyes: Extraocular Movements: Extraocular movements intact. Conjunctiva/sclera: Conjunctivae normal. Pupils: Pupils are equal, round, and reactive to light. Cardiovascular: Rate and Rhythm: Normal rate and regular rhythm. Pulses: Normal pulses. Heart sounds: Normal heart sounds. No murmur heard. Pulmonary: Effort: Pulmonary effort is normal. No respiratory distress. Breath sounds: Normal breath sounds. Abdominal: General: A surgical scar is present. Bowel sounds are normal. There is no distension. Palpations: Abdomen is soft. There is no shifting dullness, hepatomegaly or mass. Tenderness: There is abdominal tenderness in the periumbilical area. There is no right CVA tenderness, left CVA tenderness, guarding or rebound. Negative signs include Wilhelm's sign. Comments: Periumbilical pain is mild to palpation, transverse scar from c section is healed, no redness Musculoskeletal: General: Normal range of motion. Cervical back: Normal range of motion. Right lower leg: No edema. Left lower leg: No edema. Skin: General: Skin is warm. Capillary Refill: Capillary refill takes less than 2 seconds. Neurological: General: No focal deficit present. Mental Status: She is alert and oriented to person, place, and time. Psychiatric: Mood and Affect: Mood normal. Behavior: Behavior normal. Thought Content: Thought content normal. Judgment: Judgment normal. Assessment/Plan Diagnoses and all orders for this visit: Periumbilical pain, chronic Comments: Ventral/umbilical/incisional hernias? From several pregnancies in short amount of time? Check CBC/BMP and get CT scan of abdomen/pelvis.Call with results. Orders: - CBC auto differential; Future - Basic Metabolic Panel; Future documented in this encounter Miscellaneous Notes * Addendum Note - Walter Dumont MD - 11/25/2024 11:20 AM EDTAddended by: WALTER DUMONT on: 11/27/2024 05:25 PM Modules accepted: Orders documented in this encounter Plan of Treatment Scheduled Orders Name Type Priority Associated Diagnoses Orde r Schedule CBC auto differential Lab Routine Periumbilical pain, chronic Expected: 11/25/2024 (Approximate), Expires: 11/25/2025 Basic Metabolic Panel Lab Routine Periumbilical pain, chronic Expected: 11/25/2024 (Approximate), Expires: 11/25/2025 CT Abdomen Pelvis w/ and w/o Contrast Imaging Routine Periumbilical pain, chronic Expected: 11/27/2024, Expires: 11/27/2025 documented as of this encounter Visit Diagnoses Diagnosis Periumbilical pain, chronic- Primary documented in this encounter Additional Health Concerns Assessment Noted Time PHQ-9 Depression Total Score: 6 06/23/20 10:07 AM EST documented as of this encounter Care Teams Industrial Custodian Relationship Specialty Start Date End Date Ally Voss MD [address] [place] [address] PCP - General Family Medicine 03/18/21 Juliet Yeager Historic Sites Registrar 06/30/24 documented as of this encounter
--- OUTSIDE RECORDS SUMMARY | 2024-11-28 14:36 | XMS_ITS | Encounter Summary ---
Author Organization [employer] Address [address] [place] [address] Care Team Providers Care Antenna Rigger Name Role Phone Ally Voss MD Primary Care Provider [phone] Reason for Visit * Reason Comments Med Refill Encounter Details Date Type Department Care Team ([facility] st Contact Info) Description 12/04/2023 Refill [facility] MEDICINE [address] [place] [address] Ally Voss MD [address] [place], [place] [phone] Social History Tobacco Use Types Packs/Day Years Used Date Smoking Tobacco: Never Smokeless Tobacco: Never PHQ-2 Answer Date Recorded Patient Health Questionnaire-2 Score 2 10/17/2022 Housing Stability Answer Date Recorded What is [...] Answer Date Recorded Patient Health Questionnaire-2 Score 2 10/17/2022 Comments Unknown Sex and Gender Information Value Date Recorded Sex Assigned at Female 05/19/2022 10:39 AM EDT Legal Sex Female 10:39 AM EDT Gender Identity Female 05/19/2022 10:39 AM EDT Sexual Orientation Straight 11/21/2024 10 :14 AM EDT documented as of this encounter Plan of Treatment Not on file documented as of this encounter Visit Diagnoses Not on filedocumented in this encounter Care Teams Antenna Rigger Relationship Specialty Start Date End Date Ally Voss MD [address] [place] [address] PCP - General Family Medicine 03/18/21 Juliet Yeager [employer] Space Salesperson 06/30/24 documented as of this encounter
--- OUTSIDE RECORDS SUMMARY | 2024-11-28 14:36 | XMS_ITS | Encounter Summary ---
Author Organization [employer] Address [address] [facility] 7t [place] [address] Care Team Providers Care Accounts Payable Associate Name Role Phone Ally Voss MD Primary Care Provider [phone] Reason for Visit * Reason Onset Date Comments Nurse Triage 11/24/2024 Encounter Details Date Type Department Care Team ([facility] Contact Info) Description 11/24/2024 Telephone [facility] [address] [place] [id number] Ally Voss MD [address] [place] [address] [phone] Nurse Triage Social History Tobacco Use Types Packs/Day Years Used Date Smoking Tobacco: Never Smokeless Tobacco: Never Depression Answer Date [...] encounter Miscellaneous Notes * Telephone Encounter - Chasidy Vance RN - 11/24/2024 3:55 PM EDT Call returned to Arlet Kemp to triage below. Reports having frankie umbilical pain x 3-4 days. Pt denies any urinary sx. Denies any N/V or diarrhea. Mild constipation. Per pt last BM over 1 week ago.Per pt has not taken any senna or miralax. Pt denies any fever. Pt advised of disposition agrees toSDC appt tomorrow as no appts today. Reviewed home care advise, ER precautions and reasons to call back. Protocol Used: Constipation (Adult) Protocol-Based Disposition: See in Office or Video Visit Today Override (Final) Disposition: See in Office or Video Visit Today or Tomorrow Override Reason: No appointments available Future Appointments Date Time Provider Department Center 11/25/2024 11:[address] [facility] Insurance verified as active per Real Time Eligibility in [facility]. Video visit offer not recorded Positive Triage Question: * Last bowel movement (BM) > 4 days ago * All higher-acuity triage questions were negative Care Advice Discussed: * Reassurance and Education - Constipation * High Fiber Diet * Drink Adequate Liquids * Reasons To Call Back - Abdomen swelling, vomiting or fever occur - Constant or increasing abdomen pain - You become worse * Telephone Encounter - Princess Sears - 11/24/2024 3:20 PM EDT Symptom: Abdominal Pain - Female - Not Outcome: Schedule an urgent appointment (within 4 hours) or talk to a nurse or provider soon Reason: Started within the past 3 days The caller accepted this outcome. [phone] documented in this encounter Plan of Treatment Not on file documented as of this encounter Visit Diagnoses Not on filedocumented in this encounter Additional Health Concerns Assessment Noted Time PHQ-9 Depression Total Score: 6 06/23/20 24 10:07 AM EST documented as of this encounter Care Teams Accounts Payable Associate Relationship Specialty Start Date End Date Ally Voss MD [address] [place] [address] PCP - General Family Medicine 03/18/21 Juliet Yeager Label Sewer 06/30/24 documented as of this encounter
--- OUTSIDE RECORDS SUMMARY | 2024-11-28 14:36 | XMS_ITS | Encounter Summary ---
Author Organization [employer] Address [address] [facility] 7[address] [place] [address] Care Team Providers Care Pre Fabricator Name Role Phone Ally Voss MD Primary Care Provider [phone] Encounter Details Date Type Department Care Team (Latest Contact Info) Description 11/25/2024 Travel Social History Tobacco Use Types Packs/Day Years [...] documented as of this encounter Care Teams Pre Fabricator Relationship Specialty Start Date End Date Ally Voss MD [address] [place] [address] PCP - General Family Medicine 03/18/21 Juliet Yeager Senior Construction Manager 06/30/24 documented as of this encounter
--- OUTSIDE RECORDS SUMMARY | 2024-11-28 14:36 | XMS_ITS | Clinical Summary ---
Author Organization [employer] Address [address] [facility] 7[address] [place] [address] Care Team Providers Care Captain Airline Pilot Name Role Phone Ally Voss MD Primary Care Provider [phone] Allergies Active Allergy Reactions Criticality Noted Date Comments Peanut-Containing Drug Products 10/16/2022 Other reaction(s): Shrimp eel Shellfish Allergy 10/16/2022 Shrimp Extract Hives 05/03/2021 Medications * This document contains information received from the source organization and may not represent a complete record from that organization. albuterol 108 (90 Base) MCG/ACT inhaler Inhale 2 puffs every 4 (four) hours if needed. 2 Active pyridoxine (Vitamin B-6) 25 MG tablet TAKE 1 TABLET BY MOUTH 3 TIMES A DAY NEEDED FOR NAUSEA AND VOMITING 4 Active Blood Pressure kitIndications :Elevated blood pressure reading 1 Units Once per day. 1 kit 4 Active cholecalcifero l (Vitamin D-3) 50 MCG (2000 UT) capsule Take 1 capsule (50 mcg) by mouth Once per day. 120 capsule 3 4 Active polyethylene glycol, PEG, 3350 (MiraLax) 17 GM/SCOOP powder Take 17 g by mouth Once per day. 527 g 2 4 Active triamcinolone (Kenalog) 0.1 % creamIndicatio ns:Allergic dermatitis Apply topically if needed in the morning and at bedtime (pain and swelling). 80 g 2 5 Active diphenhydrAMIN E (BENADryl) 25 MG tabletIndicati ons:Allergic dermatitis Take 1 tablet (25 mg) by mouth if needed at bedtime for itching (itchiness). 30 tablet 2 5 01/25/20 25 Active ferrous gluconate (Fergon) 324 (38 Fe) MG tablet TAKE 1 TABLET BY MOUTH EVERY OTHER DAY 45 tablet 2 4 11/26/19 25 Discontinue d(Therapy completed) Vit-Fe Fumarate-FA (WesTab Plus) 27-1 MG tablet Take 1 tablet by mouth Once per day. 4 11/26/19 25 Discontinue d(Therapy completed) Acetaminophen Extra Strength 500 MG tablet Take 2 tablets by mouth every 8 (eight) hours. 4 11/26/19 25 Discontinue d(Therapy completed) senna-docusate sodium (Senokot-S) 8.6-50 MG tablet Take 2 tablets by mouth Once per day. 60 tablet 4 11/26/19 25 Discontinue d(Therapy completed) loratadine (Claritin) 10 MG tabletIndicati ons:Allergic dermatitis Take 1 tablet (10 mg) by mouth Once per day. 30 tablet 5 11/26/19 25 Discontinue d(Therapy completed) predniSONE (Deltasone) 20 MG tablet Take 1 tablet (20 mg) by mouth Once per day for 5 days. 5 tablet 5 11/24/19 25 Active Problems Problem Noted Date Diagnosed Date Acute abdominal pain 06/23/2024 Assessment & Plan (06/23/2024 10:57 AM EST): Advised to follow up with Gynecology for Sx and further evaluation. Fatigue 12/09/2023 Elevated blood pressure reading 12/09/2023 Assessment & Plan (12/09/2023 1:41 PM EDT): Ordering Blood Pressure Kit for continued monitoring at home. Urinary incontinence 11/03/2023 Assessment & Plan (11/03/2023 4:46 PM EDT): - Provide urine sample to verify no infections are the cause of incontinence. - Discussed getting a pap and pelvic exam, pt agreed for further date. - Discussed flu shot, pt refused. - Referral for Urologist. Labs: Urinalysis, HIV 1/2, Hep C depression 04/29/2023 Assessment & Plan (05/08/2023 12:05 PM EDT): Assessment: Patient with depression (depressed mood, difficulty sleeping, tearfulness, feelings of guilt, anxiousness, fearfulness, irritability, and anhedonia). Symptoms occur at varying intensity and frequency throughout the week. EPDS was administered, patient scored 16 indicating significant impact on social and occupational functioning and recommendation for follow up.Patient will benefit from OP therapy and follow up with PCP. At this time Dung Kepm meets criteria for Visit Diagnoses: Problem List Items Addressed This Visit Other depression Patient ready to address current needs Yes Strengths- dung is a part of a loving family and she is open to additional supports. PLAN: 1. Follow up with [facility]: Recommended for follow-up: As needed 2. Patient goal is to engage in OP therapy and follow up with PCP 3. Behavioral Recommendations a. OP therapy b. Discuss medication management with PCP c. FU BE as needed Physical exam 10/21/2022 Assessment & Plan (11/03/2023 4:49 PM EDT): Reviewed labs, pending pap smear. Discussed calorie deficit, recommended reduction of 20-30% of maintenance calories. Recommended to decrease soda and sugary beverage consumption. Recommended at least 20 g per meal of protein to assist with satiety. Recommended at least 150 min/week of moderate intensity exercise. Assessment & Plan (10/21/2022 11:19 AM EDT): Patient currently , will have ppBTL sp delivery. Plan mode of delivery: vaginal, plan infant feeding: combined. Pap smear: [facility] Will send titer testing On ASA for PEC ppx due to previous & obesity Declined influenza or COVID 19 vaccination Allergic dermatitis 10/16/2022 Hx of preeclampsia, prior , currently p regnant 10/16/2022 Assessment & Plan (12/09/2023 1:41 PM EDT): Ordering lab work for further evaluation. F/u in 2 weeks. Rubella non-immune status, antepartum 10/16/2022 Resolved Problems Problem Noted Date Diagnosed Date Resolved Date Class 1 obesity 10/16/2022 10/16/2022 Encounters Date Type Department Care Team Description 11/28/[address] [address] Ally Voss MD Care Management (C3 follow up call) 11/25/2024 11:20 AM EDT Office Visit [facility] [address] [place] [address] Mine Dumont MD Periumbilical pain, chronic (Primary Dx) 11/25/2024 Travel 11/24/[address] [address] Ally Voss MD Nurse Triage 11/21/2024 Telephone [facility] [address] [place] [address] Ally Voss MD Derm 11/18/2024 9:20 AM EDT Office Visit [facility] [address] [place] [address] Alvina Doyle MD Intrinsic eczema (Primary Dx) 11/18/2024 Travel 11/17/2024 Telephone [facility] [address] [place] [address] Ally Voss MD Nurse Triage 10/31/[address] [address] Ally Voss MD Care Management ([facility] TC #1-lvm) 10/26/2024 11:15 AM EDT Office Visit [facility] [address] [place] [address] Chapito Collier MD Allergic dermatitis (Primary Dx) 10/26/2024 Travel 10/25/2024 Telephone [facility] [address] [place] [address] Ally Voss MD Chart Prep 10/24/2024 Telephone [facility] [address] [place] [address] Ally Voss MD Nurse Triage 09/30/2024 Population Health Risk Score [facility] (C[facility]) Department [address] [phone] Provider, Population Health Generic 09/29/2024 Telephone [facility] MEDICINE [address] [place] [address] Ally Voss MD Care Management ([facility] follow up call) 09/13/2024 Patient Outreach [facility] PEDS [address] [place], [place] [phone] Ally Voss MD Care Coordination ([facility]/W LIO Thompson#1- Follow up call-LV) 08/31/2024 Telephone [facility] MED[facility] [address] [place], [place] [phone] Ally Voss MD Care Management ([facility] follow up call) from Last 3 Months Immunizations Name Administration Dates Next Due MMR 01/09/2023 Tdap 05/09/2024,05/27/2022,12/30/2021 Social History Tobacco Use Types Packs/Day Years [...] t he electric, gas, oil or water [employer] threatened to shut off services in your home? No 05/05/2023 Depression Answer Date Recorded Patient Health Questionnaire-2 Score 1 06/23/2024 Comments No Sex and Gender Information Value Date Recorded Sex Assigned at Female 05/19/2022 10:39 AM EDT Legal Sex Female 10:39 AM EDT Gender Identity Female 05/19/2022 10:39 AM EDT Sexual Orientation Straight 11/21/2024 10 :14 AM EDT Last Filed Vital Signs Vital Sign Reading [...] Mass Index 32.31 11/25/2024 11:32 AM EDT Plan of Treatment Health Maintenance Due Date Last Done Comments HIV Screening 1993 Family Planning (PISQ) 2008 Hepatitis C Screening 2011 Hepatitis B Vaccines (1 of 3 - 19+ 3-dose series) 2012 Pap Smear 2014 Cervical Cancer Screening 2023 HPV/Cotest 2023 SDOH Screening 10/11/2024 10/12/2023 Influenza Vaccine (#1) 2025 Postp oned from 03/20/2024 (Patient Refused) Alcohol/Substance Use Screening 06/23/2025 06/23/2024 COVID-19 Vaccine ( - 2023-2 5 season) 2025 Postponed from 03/20 (Patient Refused) Depression Screening 06/23/2025 06/23/2024, 04/29/2023 Tobacco Screening 11/25/2025 11/25/2024 DTaP/Tdap/Td Vaccines (4 - T d or Tdap) 05/09/2034 05/09/2024, 05/27/2022, 12/30/2021 Zoster Vaccines (1 of 2) 2043 RSV Patients and Patients Aged 60 years or older (1 - 1-dose 75+ series) 2068 HIB Vaccines Aged Out No longer eligi ble based on patient's age to complete this topic HPV Vaccines Aged Out No longer eligi ble based on patient's age to complete this topic Hepatitis A Vaccines Aged Out No long er eligible based on patient's age to complete this topic IPV Vaccines Aged Out No longer eligi ble based on patient's age to complete this topic Meningococcal Vaccine Aged Out No junior sean eligible based on patient's age to complete this topic Pneumococcal Vaccine: Pediatrics (0 to 5 Years) and At-Risk Patients (6 to 49) Years) Aged Out No longer eligible b ased on patient's age to complete this topic RSV under 20 months Aged Out No longe r eligible based on patient's age to complete this topic Rotavirus Vaccines Aged Out No longer eligible based on patient's age to complete this topic Insurance C3 Care Teams Captain Airline Pilot Relationship Specialty Start Date End Date Ally Voss MD [address] [place] [phone] PCP - General Family Medicine 03/18/21 Juliet Yeager Cuff Setter Overlock 06/30/24
[2024-11-28 17:26] LABS: MANUAL DIFF FLAG NO
[2024-11-28 17:45] LABS: Basophils Absolute Auto 0.1 X10*3/uL (0.0-0.2); Basophils Percent Auto 0.6 % (0-2); Eosinophils Absolute Auto 0.3 X10*3/uL (0.0-0.4); Eosinophils Percent Auto 4.2 % (0-4); Hematocrit 34.8 % (37.0-47.0); Hemoglobin 11.7 g/dl (12.0-16.0); Imm Gran Abs Auto 0.02 X10*3/uL (0.00-0.03); Imm Gran Pct Auto 0.3 % (0.0-0.4); Lymphocytes Absolute Auto 2.5 X10*3/uL (1.2-4.9); Lymphocytes Percent Auto 31.8 % (20-40); Mean Corpuscular HGB Conc 33.6 g/dl (31.0-35.0); Mean Corpuscular Hemoglobin 29.1 pg (27.0-33.0); Mean Corpuscular Volume 86.6 fL (80.0-98.0); Mean Platelet Volume 12.6 fL (9.4-12.3); Monocytes Absolute Auto 0.4 X10*3/uL (0.1-1.2); Monocytes Percent Auto 5.1 % (2-11); Neutrophils Absolute Auto 4.5 x10*3/uL (2.0-8.3); Platelet Count 213 X10*3/uL (160-400); Red Blood Count 4.02 X10*6/uL (4.20-5.50); Red Cell Distribution Width 13.6 % (11.0-16.0); White Blood Count 7.7 X10*3/uL (4.8-10.8)
[2024-11-28 17:49] LABS: Anion Gap 9 (12-20); Blood Urea Nitrogen 11 mg/dL (9-16); Calcium 9.3 mg/dL (8.4-10.2); Carbon Dioxide 25 mmol/L (22-29); Chloride 108 mmol/L (96-108); Estimated Glomerular Filt Rate > 60; Glucose Random 96 mg/dL (60-115); Potassium 3.6 mmol/L (3.3-5.1); Sodium 138 mmol/L (135-145)
== END 2024-11-28 14:25 | disposition home or self-care (01) ==
LOC: HO.CHCLDS 14:24
PROVIDERS: Visit Provider Pediatrics
DX: R10.33 Periumbilical pain (principal); G89.29 Other chronic pain
CPT/HCPCS: 36415; 80048; 85025

== ENCOUNTER 2025-02-08 08:08 | Outpatient (REF) | payer MEDICAID, SELFPAY ==
--- NOTE | ~2025-02-08 | CT_ITS ---
EXAMINATION: CT ABDOMEN AND PELVIS WITH CONTRAST CLINICAL INFORMATION: 29-year-old female with periumbilical abdominal pain. COMPARISON: None available. TECHNIQUE: Multidetector volumetric images were obtained from the superior aspect of the liver through the pubic symphysis following administration 85 mL of Omnipaque 350 intravenous contrast. Sagittal and coronal reformatted images were obtained on the technologist's workstation. Oral contrast: Yes This CT examination was performed using dose optimization techniques as appropriate, variously including the following: *Automated exposure control *Adjustment of mA and/or kV according to patient size (this includes techniques or standardized protocols for targeted exams where dose is matched to indication/reason for exam; i.e. extremities or head) *Use of iterative reconstruction technique FINDINGS: LUNG BASES: Lung bases are clear. Heart size is normal. There are no effusions. Normal GE junction. LIVER, GALLBLADDER, AND BILIARY TREE: The liver is normal in size, shape, and demonstrate mild diffuse fatty infiltration. No suspicious focal hepatic lesion or biliary ductal dilatation is present. There is an 8 mm segment 6 enhancing lesion, most consistent with a flash filling hemangioma (series 3, image 26). The gallbladder is unremarkable with no evidence of radiopaque gallstones, gallbladder wall thickening, or obvious pericholecystic inflammatory changes. PANCREAS: Unremarkable. SPLEEN: Unremarkable. Small splenule. ADRENAL GLANDS: Unremarkable. KIDNEYS AND URETERS: The kidneys are normal in size, shape, and attenuation. No hydronephrosis, hydroureter, or calculi seen. No perinephric stranding. BLADDER: Unremarkable. GASTROINTESTINAL TRACT: The small and large bowel are unremarkable. The appendix is unremarkable. ABDOMINAL WALL: Tiny fat-containing umbilical hernia. Otherwise normal. LYMPH NODES: Normal. VASCULAR: Unremarkable. PELVIC VISCERA: The uterus is normal in appearance. It is retroverted and retroflexed. Normal ovaries. No adnexal masses. OSSEOUS STRUCTURES: No suspicious lytic or blastic bone lesion. CT/CT abdomen pelvis w IV con IMPRESSION: 1. No acute finding in the abdomen or pelvis. 2. Mild fatty infiltration of the liver. 3. Ancillary findings as discussed in the body of the report. Electronically signed by: Dylan Stack MD 02/08/2025 10:49 AM EDT
--- OUTSIDE RECORDS SUMMARY | 2025-02-08 08:13 | XMS_ITS | Clinical Summary ---
Author Organization [employer] Address [address] [facility] [address] [place] [address] Care Team Providers Care Ophthalmologist Name Role Phone Ally Voss MD Primary Care Provider [phone] Allergies Active Allergy Reactions Criticality Noted Date [...] NAUSEA AND VOMITING 4 Active Blood Pressure kitIndications: Elevated blood pressure reading 1 Units Once per day. 1 kit 4 Active cholecalciferol (Vitamin D-3) 50 MCG (2000 UT) capsule Take 1 capsule (50 mcg) by mouth Once per day. 120 capsule 3 4 Active polyethylene glycol, PEG, 3350 (MiraLax) 17 GM/SCOOP powder Take 17 g by mouth Once per day. 527 g 2 4 Active triamcinolone (Kenalog) 0.1 % creamIndication s:Allergic dermatitis Apply topically if needed in the morning and at bedtime (pain and swelling). 80 g 2 5 Active diphenhydrAMINE (BENADryl) 25 MG tabletIndicatio ns:Allergic dermatitis Take 1 tablet (25 mg) by mouth if needed at bedtime for itching (itchiness). 30 tablet 2 5 Active clobetasol (Temovate) 0.05 % ointment Apply topically 2 times daily. 90 g 3 5 Active Active Problems Problem Noted Date Diagnosed Date [...] up with PCP. At this time Dung Kemp meets criteria for Visit Diagnoses: Problem List Items Addressed This Visit Other depression Patient ready to address current needs Yes Strengths- dung is a part of a loving family and she is open to additional supports. PLAN: 1. Follow up with [facility]: Recommended for follow-up: As needed 2. Patient [...] delivery. Plan mode of delivery: vaginal, plan feeding: combined. Pap smear: [facility] Will send titer testing On ASA for PEC ppx due to previous & obesity Declined influenza or COVID 19 vaccination Allergic dermatitis 10/16/2022 Assessment & Plan (01/27/2025 12:17 PM EDT): Will start on clobetasone, will refer to dermatology, continue with moisturizer creams as previously prescribed Hx of preeclampsia, prior , currently p regnant 10/16/2022 Assessment & Plan (12/09/2023 1:41 PM EDT): Ordering lab work for further evaluation. F/u in 2 weeks. Rubella non-immune status, antepartum 10/16/2022 Resolved Problems Problem Noted Date Diagnosed Date Resolved Date Class 1 obesity 10/16/2022 10/16/2022 Encounters Date Type Department Care Team Description 02/02/2025 Telephone [facility] MED[facility]INE [address] [place] [address] Ally Voss MD Nurse Triage 01/27/2025 11:15 AM EDT Office Visit [facility] [address] [place] [address] Moi Velazquez MD Allergic dermatitis (Primary Dx) 01/27/2025 Travel 01/18/2025 Telephone [facility] MEDICINE [address] [place] [address] Ally Voss MD Care Management (C3CM follow up call) 01/13/2025 Telephone [facility] [address] [place] [address] Ally Voss MD Nurse Triage 01/11/2025 Orders Only [facility] [address] [place] [address] Mine Dumont MD Periumbilical pain, chronic (Primary Dx) 01/11/2025 Telephone [facility] [address] [place] [address] [phone] [address] ABD ORDER 12/21/[address] [address] Ally Voss MD Care Management (C3CM follow up call) 12/07/2024 Orders Only [facility] [address] [place] [address] Mine Dumont MD Periumbilical pain, chronic (Primary Dx) 12/07/2024 Telephone [facility] [address] [address] [address] abdomen order 12/02/2024 Patient Outreach [address] [address] Ally Voss MD Care Coordination (C3/CHW LIO Thompson- Follow up call) 11/28/[address] [address] Ally Voss MD Care Management (C3CM follow up call) 11/25/2024 11:20 AM EDT Office Visit [facility] [address] [place] [address] Mine Dumont MD Periumbilical pain, chronic (Primary Dx) 11/25/2024 Travel 11/24/[address] [address] Ally Voss MD Nurse Triage 11/21/2024 Telephone [facility] [address] [place], [place] [phone] Ally Voss MD Derm 11/18/2024 9:20 AM EDT Office Visit [facility] [address] [place] [address] Alvina Doyle MD Intrinsic eczema (Primary Dx) 11/18/2024 Travel 11/17/2024 Telephone [facility] [address] [place] [address] Ally Voss MD Nurse Triage from Last 3 Months Immunizations Immunization Administration Dates Next Due MMR 01/09/2023 Tdap [...] Sign Reading Time Taken Comments Blood Pressure 112/78 01/27/2025 11:26 AM EDT Pulse 76 01/27/2025 11:26 AM EDT Temperature 37.1 C (98.7 F) 01/27/2025 11:26 AM EDT Respiratory Rate 16 01/27/2025 11:26 AM EDT Oxygen Saturation 98% 11/25/2024 11:32 AM EDT Inhaled Oxygen Concentration - - Weight 76 kg (167 lb 9.6 oz) 01/27/2025 11:26 AM EDT Height 154.9 cm (5' 1 ) 01/27/2025 11:26 AM EDT Body Mass Index 31.67 01/27/2025 11:26 AM EDT Plan of Treatment Health Maintenance Due Date Last Done Comments HIV Screening 1993 Disability Screening 1993 Family Planning (PISQ) 2008 HPV Vaccines (1 - 3-dose series) 2008 Hepatitis C Screening 2011 Hepatitis B Vaccines (1 of 3 - 19+ 3-dose series) 2012 Pap Smear 2014 Cervical Cancer Screening 2023 HPV/Cotest 2023 SDOH Screening 10/11/2024 10/12/2023 Influenza Vaccine (#1) 2025 Alcohol/Substance Use Screening 06/23/2025 06/23/2024 COVID-19 Vaccine (1 - 2023-2 5 season) 2025 Postponed from [...] patient's age to complete this topic Meningococcal B Vaccine Aged Out No l onger eligible based on patient's age to complete this topic Meningococcal Vaccine Aged Out No junior sean eligible based on patient's age to complete this topic Pneumococcal Vaccine: Pediatrics (0 to 5 Years) and At-Risk Patients (6 to 49) Years Aged Out No longer eligible b ased on patient's age to complete this topic RSV under 20 months Aged Out No longe r eligible based on patient's age to complete this topic Rotavirus Vaccines Aged Out No longer eligible based on patient's age to complete this topic Procedures Procedure Name Priority Date/Time Associated Diagnosis Comments BASIC METABOLIC PANEL Routine 11/28/2024 2:25 PM EDT Periumbilical pain, chronic CBC WITH AUTO DIFFERENTIAL Routine 11/28/2024 2:25 PM EDT Periumbilical pain, chronic from Last 3 Months Results * (ABNORMAL) CBC auto differential (11/28/2024 2:25 PM EDT) White Blood Count 7.7 4.8 - 10.8 X10*3/uL [facility] Red Blood Count 4.02(L) 4.20 - 5.50 X10*6/uL [facility] Hemoglobin 11.7(L) 12.0 - 16.0 g/dl [facility] Hematocrit 34.8(L) 37.0 - 47.0 % [facility] Mean Corpuscular Volume 86.6 80.0 - 98.0 fL [facility] Mean Corpuscular Hemoglobin 29.1 27.0 - 33.0 pg [facility] Mean Corpuscular HGB Conc 33.6 31.0 - 35.0 g/dl [facility] Red Cell Distribution Width 13.6 11.0 - 16.0 % [facility] Platelet Count 213 160 - 400 X10*3/uL [facility] Mean Platelet Volume 12.6(H) 9.4 - 12.3 fL [facility] Neutrophils Percent Auto 58.0 45 - 73 % [facility] Imm Gran Pct Auto 0.3 0.0 - 0.4 % [facility] Lymphocytes Percent Auto 31.8 20 - 40 % [facility] Monocytes Percent Auto 5.1 2 - 11 % [facility] Eosinophils Percent Auto 4.2(H) 0 - 4 % [facility] Basophils Percent Auto 0.6 0 - 2 % [facility] NRBC Pct Auto 0.0 0.0 - 0.2 /100WBC [facility] Neutrophils Absolute Auto 4.5 2.0 - 8.3 x10*3/uL [facility] Imm Gran Abs Auto 0.02 0.00 - 0.03 X10*3/uL [facility] Lymphocytes Absolute Auto 2.5 1.2 - 4.9 X10*3/uL [facility] Monocytes Absolute Auto 0.4 0.1 - 1.2 X10*3/uL [facility] Eosinophils Absolute Auto 0.3 0.0 - 0.4 X10*3/uL [facility] Basophils Absolute Auto 0.1 0.0 - 0.2 X10*3/uL [facility] NRBC Abs Auto 0.000 0.0 - 0.012 X10*3/uL [facility] Blood Venous blood specimen / Unknown 11/28/2024 2:25 PM EDT 11/28/2024 5:23 PM EDT us Mine Dumont MD LAB BLOOD ORDERABLES Final Re sult [facility] [address] [place] [address] [phone] * (ABNORMAL) Basic Metabolic Panel (11/28/2024 2:25 PM EDT) Sodium 138 135 - 145 mmol/L [facility] Potassium 3.6 3.3 - 5.1 mmol/L [facility] Chloride 108 96 - 108 mmol/L [facility] Carbon Dioxide 25 22 - 29 mmol/L [facility] Anion Gap 9(L) 12 - 20 [facility] Urea Nitrogen (BUN) 11 9 - 16 mg/dL [facility] Creatinine, Serum 0.66 0.5 - 1.4 mg/dL [facility] Estimated Glomerular Filt Rate >60 [facility] Comment:Chronic Kidney Disea se: Estimated GFR < 60 mL/min/1.13m1Irhlpt Kidney Disease: Estimated GFR < 15 mL/min/1.73m2 Glucose 96 60 - 115 mg/dL [facility] Calcium 9.3 8.4 - 10.2 mg/dL [facility] Blood Venous blood specimen / Unknown 11/28/2024 2:25 PM EDT 11/28/2024 5:23 PM EDT us Mine Dumont MD LAB BLOOD ORDERABLES Final Re sult [facility] [address] [place] [address] [phone] from Last 3 Months Insurance [facility] C3 Care Teams Ophthalmologist Relationship Specialty Start Date End Date Ally Voss MD [address] [place] [phone] PCP - General Family Medicine 03/18/21 Juliet Yeager Preparer Making Department 06/30/24
[2025-02-08] MEDS: iohexoL 350 MG/ML 100 ML INFUS..BTL IV (10:15)
[2025-02-08] MEDS: Barium Sulfate Oral (Berry) 450 ML ORAL.SUSP 900 ML PO (10:16)
== END 2025-02-08 08:09 | disposition home or self-care (01) ==
LOC: HO.CT 08:08
PROVIDERS: PCP Family Medicine; Visit Provider Pediatrics
DX: R10.33 Periumbilical pain (principal); G89.29 Other chronic pain
CPT/HCPCS: 74177; Q9967

== ENCOUNTER → 2025-02-08 08:11 | Outpatient (BNV) | payer MEDICAID, SELFPAY | PROVIDERS: PCP Family Medicine; Visit Provider Radiology Diagnostic Radiology | DX: K76.0 Fatty (change of) liver, not elsewhere classified (principal) | CPT/HCPCS: 74177 ==

== ENCOUNTER 2025-03-15 10:50 | Outpatient (REF) | payer MEDICAID, SELFPAY ==
--- OUTSIDE RECORDS SUMMARY | 2025-03-15 09:00 | XMS_ITS | Encounter Summary ---
Author Organization [employer] Address [address] [place] [address] [address] [address] Care Team Providers Care Infrastructure Solutions Architect Name Role Phone Ally Voss MD Primary Care Provider [phone] Reason for Referral * Imaging (Routine) - Pending Review Specialty Diagnoses / Procedures Referred By Contac t Referred To Contact Radiology Diagnoses Periumbilical pain, chronic Procedures MR Pelvis w/ Contrast Ally Voss MD [address] [place] [address] Phone: tel: fax: Referral ID Status Reason Start Date Expiration Date V isits Requested Visits Authorized [id number] Pending Review 03/15/2025 03/15/2026 1 1 * Imaging (Routine) - Pending Review Specialty Diagnoses / Procedures Referred By Contac t Referred To Contact Radiology Diagnoses Periumbilical pain, chronic Procedures MR Abdomen w/ Contrast Ally Voss MD [address] [place] [address] Phone: tel: fax: Referral ID Status Reason Start Date Expiration Date V isits Requested Visits Authorized [id number] Pending Review 03/15/2025 03/15/2026 1 1 * Consultation (Routine) - Pending Review Specialty Diagnoses / Procedures Referred By Contac t Referred To Contact Gastroenterology Diagnoses Rectal bleeding Ally Voss MD [address] [place] [address] Phone: tel: fax: Referral ID Status Reason Start Date Expiration Date Visits Requested Visits Authorized [id number] Pending Review Specialty Services Required 03/15/2025 03/15/2026 1 1 Reason for Visit * Reason Comments Follow-up Encounter Details Date Type Department Care Team ([facility] st Contact Info) Description 03/15/2025 9:00 AM EDT Office Visit [facility] MED & PEDS [address] [place] [address] Ally Voss MD [address] [place] [address] Rectal bleeding (Primary Dx); Periumbilical pain, chronic; Rash; Left facial numbness Social History Tobacco Use Types Packs/Day Years Used Date Smoking Tobacco: Never Passive Smoke Exposure: Never Smokeless Tobacco: Never Tobacco Cessation:Counseling Given: Not Answered Depression Answer Date Recorded Patient Health Questionnaire-9 Score 0 03/15/2025 Patient Health Questionnaire-9 Score 0 03/15/2025 Last PHQ-9: Questionnaire Data Not on file 0 03/15/2025 Housing Stability Answer Date Recorded What is your housing situation today? I have javier negrete 03/15/[address] you li ve. Do you have problems with any of the following? None of the above 03/15/2025 Food Insecurity Answer Date Recorded Within the past 12 months, y ou worried that your food would run out before you got money to buy more: Never True 03/15/2025 Within the past 12 months,th e food you bought just didn't last and you didn't have enough money to get more: Never True Transportation Answer Date Recorded In the past 12 months, has l ack of transportation kept you from medical appts, meetings, work or from getting things needed for daily living? No 03/15/2025 Utilities Answer Date Recorded In the past 12 months, has t he electric, gas, oil or water company threatened to shut off services in your home? No 03/15/2025 Depression Answer Date Recorded Patient Health Questionnaire-2 Score 0 03/15/2025 Internet Access Answer Date Recorded Internet Access Q1 Yes 03/15/2025 Internet Access Q2 Not on file 03/15/2025 Comments No Sex and Gender Information Value Date Recorded Sex Assigned at Female 05/19/2022 10:39 AM EDT Legal Sex Female 10:39 AM EDT Gender Identity Female 05/19/2022 10:39 AM EDT Sexual Orientation Straight 11/21/2024 10 :14 AM EDT documented as of this encounter Last Filed Vital Signs Vital Sign Reading Time Taken Comments Blood Pressure 128/82 03/15/2025 9:08 AM EDT Pulse 95 03/15/2025 9:08 AM EDT Temperature 36.6 C (97.8 F) 03/15/2025 9:08 AM EDT Respiratory Rate 18 03/15/2025 9:08 AM EDT Oxygen Saturation - - Inhaled Oxygen Concentration - - Weight 79.3 kg (174 lb 12.8 oz) 03/15/2025 9:08 AM EDT Height 154.9 cm (5' 1 ) 03/15/2025 9:08 AM EDT Body Mass Index 33.03 03/15/2025 9:08 AM EDT documented in this encounter Functional Status * Over the past 2 weeks, how often have you been bothered by any of the following problems? Question Answer Date of Assessment Author Patient Health Questionnaire-2 Score 0 03/15/2025 9:13 AM EDT Carmela Glynn MA * Little interest or pleasure in doing things Answer Date of Assessment Author Not at all 03/15/2025 9:13 AM EDT Carmela Sun MA * Feeling down, depressed, or hopeless Answer Date of Assessment Author Not at all 03/15/2025 9:13 AM EDT Carmela Sun MA * Trouble falling or staying asleep, or sleeping too much Answer Date of Assessment Author Not at all 03/15/2025 9:13 AM EDT Carmela Sun MA * Feeling tired or having little energy Answer Date of Assessment Author Not at all 03/15/2025 9:13 AM EDT Carmela Sun MA * Poor appetite or overeating Answer Date of Assessment Author Not at all 03/15/2025 9:13 AM Carmela Prather MA * Feeling bad about yourself - or that you are a failure or have let yourself or your family down Answer Date of Assessment Author Not at all 03/15/2025 9:13 AM EDT Carmela Sun MA * Trouble concentrating on things, such as reading the newspaper or watching television Answer Date of Assessment Author Not at all 03/15/2025 9:13 AM Carmela Prather MA * Moving or speaking so slowly that other people could have noticed? Or the opposite - being so fidgety or restless that you have been moving around a lot more than usual. Answer Date of Assessment Author Not at all 03/15/2025 9:13 AM Carmela Prather MA * Thoughts that you would be better off or hurting yourself in some way Answer Date of Assessment Author Not at all 03/15/2025 9:13 AM Carmela Prather MA * Patient Health Questionnaire-9 Score Answer Date of Assessment Author 0 03/15/2025 9:13 AM Carmela Prather MA * Over the last 2 weeks, how often have you been bothered by any of the following problems? Question Answer Date of Assessment Author Feeling nervous, anxious, or on edge 0 03/15/2025 9:13 AM Carmela Quintana MA Not being able to stop or control worrying 0 03/15/2025 9:13 AM Carmela Quintana MA Worrying too much about different things 0 03/15/2025 9:13 AM Carmela Quintana MA Trouble relaxing 0 03/15/2025 9:13 AM Carmela Murrell MA Being so restless that it is hard to sit still 0 03/15/2025 9:13 AM Carmela Quintana MA Becoming easily annoyed or irritable 0 03/15/2025 9:13 AM Carmela Quintana MA Feeling afraid as if something awful might happen 0 03/15/2025 9:13 AM EDT Carmela Madrid MA MONTSERRAT-7 Total Score 0 03/15/2025 9:13 AM EDT Carmela Glynn MA documented as of this encounter Plan of Treatment Upcoming Encounters Date Type Department Care Team (Late st Contact Info) Description 04/14/2025 1:00 PM EDT Office Visit [facility] MED & PEDS [address] [place] [address] Ally Voss MD [address] [place] [address] Scheduled Orders Name Type Priority Associated Diagnoses Orde r Schedule Comprehensive Metabolic Panel Lab Routine Rash Expected: 03/15/2025 (Approximate), Expires: 03/15/2026 LASHELL Screen,IFA, with Reflex to Titer and Pattern Lab Routine Rash Expected: 03/15/2025 (Approximate), Expires: 03/15/2026 DNA (ds) Antibody Lab Routine Rash Expected: 03/15/2025 (Approximate), Expires: 03/15/2026 DNA (ds) Antibody Lab Routine Rash Expected: 03/15/2025 (Approximate), Expires: 03/15/2026 Sm and Sm/SLUICE TENDER Antibodies Lab Routine Rash Expected: 03/15/2025 (Approximate), Expires: 03/15/2026 Sjogren's Antibodies (SS-A,SS-B) Lab Routine Rash Expected: 03/15/2025 (Approximate), Expires: 03/15/2026 MR Abdomen w/ Contrast Imaging Routine Periumbilical pain, chronic Expected: 03/15/2025, Expires: 03/15/2026 MR Pelvis w/ Contrast Imaging Routine Periumbilical pain, chronic Expected: 03/15/2025, Expires: 03/15/2026 TSH W/Reflex to FT4 Lab Routine Left facial numbness Expected: 03/15/2025 (Approximate), Expires: 03/15/2026 CBC auto differential Lab Routine Left facial numbness Expected: 03/15/2025 (Approximate), Expires: 03/15/2026 Sed Rate by Modified Westergren Lab Routine Left facial numbness Expected: 03/15/2025, Expires: 03/15/2026 C-reactive Protein Lab Routine Left facial numbness Expected: 03/15/2025 (Approximate), Expires: 03/15/2026 Rheumatoid Factor Lab Routine Left facial numbness Expected: 03/15/2025, Expires: 03/15/2026 Lyme Disease Ab with Reflex to Blot (IgG, IgM) Lab Routine Left facial numbness Expected: 03/15/2025, Expires: 03/15/2026 HIV-1/2 Antigen and Antibodies, Fourth Generation, with Reflexes Lab Routine Left facial numbness Expected: 03/15/2025 (Approximate), Expires: 03/15/2026 RPR (Monitor) with Reflex to Titer Lab Routine Left facial numbness Expected: 03/15/2025, Expires: 03/15/2026 Scheduled Referrals Name Type Priority Associated Diagnoses Order Schedule Referral to Gastroenterology Outpatient Referral Routine Rectal bleeding Expected: 03/15/2025 (Approximate), Expires: 03/15/2026 documented as of this encounter Visit Diagnoses Diagnosis Rectal bleeding- Primary Hemorrhage of rectum and anus Periumbilical pain, chronic Rash Rash and other nonspecific skin eruption Left facial numbness Disturbance of skin sensation documented in this encounter Additional Health Concerns Assessment Noted Time PHQ-9 Depression Total Score: 0 03/15/20 25 9:13 AM EDT documented as of this encounter Care Teams Infrastructure Solutions Architect Relationship Specialty Start Date End Date Ally Voss MD [address] [place] [id number] PCP - General Family Medicine 03/18/21 Juliet Yeager Marine Pipefitter Helper 06/30/24 documented as of this encounter
--- OUTSIDE RECORDS SUMMARY | 2025-03-15 11:44 | XMS_ITS | Encounter Summary ---
Author Organization [employer] Address [address] [facility] 7[address] [place] [address] Care Team Providers Care Button Sewer Hand Name Role Phone Ally Voss MD Primary Care Provider [phone] Reason for Visit * Reason Comments Med Refill Encounter Details Date Type Department Care Team ([facility] st Contact Info) Description 12/04/[address] [facility] MEDICINE [address] [place] [address] Ally Voss MD [address] [place], [place] [id number] Social History Tobacco Use Types Packs/Day Years [...] Description 04/14/2025 1:00 PM EDT Office Visit [facility] MED & PEDS [address] [place] [address] Ally Voss MD [address] [place] [address] documented as of this encounter Visit Diagnoses Not on filedocumented in this encounter Care Teams Button Sewer Hand Relationship Specialty Start Date End Date Ally Voss MD [address] [place] [id number] PCP - General Family Medicine 03/18/21 Juliet Yeager Food Service Associate 06/30/24 documented as of this encounter
--- OUTSIDE RECORDS SUMMARY | 2025-03-15 11:44 | XMS_ITS | Encounter Summary ---
Author Organization [employer] Address [address] [facility] 7[address] [place] [address] Care Team Providers Care Field Software Engineer Name Role Phone Ally Voss MD Primary Care Provider [phone] Reason for Visit * Reason Onset Date Comments chart prep 03/14/2025 Encounter Details Date Type Department Care Team ([facility] Contact Info) Description 03/14/2025 Telephone [facility] [address] [place] [address] Ally Voss MD [address] [place], [place] [phone] chart prep Social History Tobacco Use Types Packs/Day Years [...] encounter Miscellaneous Notes * Telephone Encounter - Leticia Young MA - 03/14/2025 9:35 AM EDT Chart Prep Labs: done Images: done Referrals: complete Vaccines due: Hep B Screenings: pap smear Overdue care gaps: SDOH documented in this encounter Plan of Treatment Upcoming Encounters Date Type Department Care Team (Late st Contact Info) Description 04/14/2025 1:00 PM EDT Office Visit [facility] MED & PEDS [address] [place] [address] Ally Voss MD [address] [place] [address] documented as of this encounter Visit Diagnoses Not on filedocumented in this encounter Additional Health Concerns Assessment Noted Time PHQ-9 Depression Total Score: 6 06/23/20 24 10:07 AM EST documented as of this encounter Care Teams Field Software Engineer Relationship Specialty Start Date End Date Ally Voss MD [address] [place] [address] PCP - General Family Medicine 03/18/21 Juliet Yeager Commercial Escrow Assistant 06/30/24 documented as of this encounter
--- OUTSIDE RECORDS SUMMARY | 2025-03-15 11:44 | XMS_ITS | Encounter Summary ---
Author Organization [employer] Address [address] [place] [address] [address] [place] [address] Care Team Providers Care Director Content Marketing Name Role Phone Ally Voss MD Primary Care Provider [phone] Encounter Details Date Type Department Care Team ([facility] Contact Info) Description 02/20/2025 Results Follow-Up [facility] MED & PEDS [address] [place] [address] Mine Dumont MD [address] [place] [address] CT Abdomen Pelvis w/ Contrast Social History Tobacco Use Types Packs/Day Years [...] Description 04/14/2025 1:00 PM EDT Office Visit [facility] CH[facility] MED & PEDS [address] [place] [address] Ally Voss MD [address] [place] [address] documented as of this encounter Visit Diagnoses Not on filedocumented in this encounter Additional Health Concerns Assessment Noted Time PHQ-9 Depression Total Score: 6 06/23/20 24 10:07 AM EST documented as of this encounter Care Teams Director Content Marketing Relationship Specialty Start Date End Date Ally Voss MD [address] [place] [address] PCP - General Family Medicine 03/18/21 Juliet Yeager Portable Pinch Riveter 06/30/24 documented as of this encounter
--- OUTSIDE RECORDS SUMMARY | 2025-03-15 11:44 | XMS_ITS | Encounter Summary ---
Author Organization [email or web address] Address [address] [facility] 7[address] [place] [address] Care Team Providers Care External Grinder Name Role Phone Ally Voss MD Primary Care Provider [phone] Reason for Visit * Reason Onset Date Comments Change PCP 02/17/2025 Encounter Details Date Type Department Care Team ([facility] Contact Info) Description 02/17/2025 Telephone [facility] CH[facility] MED & PEDS [address] [place], [place] [phone] Ally Voss MD [address] [place] [address] Change PCP Social History Tobacco Use Types Packs/Day Years [...] encounter Miscellaneous Notes * Telephone Encounter - Yoselin Romano RN - 03/13/2025 2:51 PM EDT Returned call to pt regarding TP request. Pt stated she was frustrated at the time as she had been seeing multiple providers and could never get in to see PCP. Pt was looking for a provider that had more availability. Explained to pt that PCP is one of the very few providers that has more availability compared to others. Pt decided to keep current PCP as pt has a f/u appt on Thursday. Pt to return call PRN. * Telephone Encounter - Louie Umanzor - 02/17/2025 3:41 PM EDT Pt requesting a t/p appt. documented in this encounter Plan of Treatment Upcoming Encounters Date Type Department Care Team (Late st Contact Info) Description 04/14/2025 1:00 PM EDT Office Visit [facility] MED & PEDS [address] [place] [address] Ally Voss MD [address] [place] [address] documented as of this encounter Visit Diagnoses Not on filedocumented in this encounter Additional Health Concerns Assessment Noted Time PHQ-9 Depression Total Score: 6 06/23/20 24 10:07 AM EST documented as of this encounter Care Teams External Grinder Relationship Specialty Start Date End Date Ally Voss MD [address] [place] [address] PCP - General Family Medicine 03/18/21 Juliet Yeager Heat Treating Furnace Tender 06/30/24 documented as of this encounter
--- OUTSIDE RECORDS SUMMARY | 2025-03-15 11:44 | XMS_ITS | Clinical Summary ---
Author Organization [employer] Address [address] [place] [address] [address] [place] [address] Care Team Providers Care Supervisor Core Shop Name Role Phone Ally Voss MD Primary Care Provider [phone] Allergies Active Allergy Reactions Criticality Noted Date [...] times daily. 90 g 3 5 Active ketoconazole (NIZOral) 2 % shampoo APPLY TO SCALP 2X/WEEK, LEAVE ON FOR 5 MIN THEN RINSE OFF 5 Active Active Problems Problem Noted Date Diagnosed Date Rectal bleeding 03/15/2025 Periumbilical pain, chronic 03/15/2025 Rash 03/15/2025 Left facial numbness 03/15/2025 Acute abdominal pain 06/23/2024 Assessment & Plan [...] continue with moisturizer creams as previously prescribed History of gestational hypertension 10/16/2022 Assessment & Plan (12/09/2023 1:41 PM EDT): Ordering lab work for further evaluation. F/u in 2 weeks. Rubella non-immune status, antepartum 10/16/2022 Resolved Problems Problem Noted Date Diagnosed Date Resolved Date Class 1 obesity 10/16/2022 10/16/2022 Encounters Date Type Department Care Team Description 03/15/2025 9:00 AM EDT Office Visit [facility] [address] [place] [address] Ally Voss MD Rectal bleeding (Primary Dx); Periumbilical pain, chronic; Rash; Left facial numbness 03/15/2025 Travel 03/14/2025 Telephone [facility] [address] [place] [address] Ally Voss MD chart prep 03/09/[address] [address] Ally Voss MD Care Management (C3CM follow up call) 03/08/2025 Patient Outreach [address] [address] Ally Voss MD Pre-visit Planning (Pre visit planning unable to LVM ) 03/08/2025 Travel 02/20/2025 Results Follow-Up [facility] [address] [place] [address] [address] Abdomen Pelvis w/ Contrast 02/17/2025 Telephone [facility] [address] [place] [phone] Ally Voss MD Change PCP 02/13/[address] [address] Ally Voss MD Care Management (C3CM follow up call) 02/02/[address] [address] Ally Voss MD Nurse Triage 01/27/2025 11:15 AM EDT Office Visit [facility] [address] [place] [address] Moi Velazquez MD Allergic dermatitis (Primary Dx) 01/27/2025 Travel 01/18/[address] [address] Ally Voss MD Care Management (C3CM follow up call) 01/13/2025 Telephone [facility] [address] [place] [phone] Ally Voss MD Nurse Triage 01/11/2025 Orders Only [facility] [address] [place] [address] Mine Dumont MD Periumbilical pain, chronic (Primary Dx) 01/11/2025 Telephone [facility] [address] [place] [phone] ABD ORDER 12/21/2024 Telephone [facility] [address] [place], [place] [phone] Ally Voss MD Care Management (C3 follow up call) from Last 3 Months Immunizations Immunization Administration [...] is your housing situation today? I have javierluz negrete 03/15/[address] you [...] 18 03/15/2025 9:08 AM EDT Oxygen Saturation 98% 11/25/2024 11: 32 AM EDT Inhaled Oxygen Concentration - - Weight 79.3 kg (174 lb 12.8 oz) 03/15/2025 9:08 AM EDT Height 154.9 cm (5' 1 ) 03/15/2025 9:08 AM EDT Body Mass Index 33.03 03/15/2025 9:08 AM EDT Plan of Treatment Upcoming Encounters Date Type Department Care Team ([facility] st Contact Info) Description 04/14/2025 1:00 PM EDT Office Visit [facility] [address] [place] [address] Ally Voss MD [address] [place] [address] Health Maintenance Due Date Last Done Comments HIV Screening 1993 Family Planning (PISQ) 2008 HPV Vaccines (1 - 3-dose series) 2008 Hepatitis C Screening 2011 Hepatitis B Vaccines (1 of 3 - 19+ 3-dose series) 2012 Pap Smear 2014 Cervical Cancer Screening 2023 HPV/Cotest 2023 Influenza Vaccine (#1) 2025 COVID-19 Vaccine ( - 2023-2 5 season) 2025 Postponed from 03/20 (Patient Refused) Disability Screening 03/08/2026 03/08/2025 Alcohol/Substance Use Screening 03/15/2026 03/15/2025 Depression Screening 03/15/2026 03/15/2025, 04/29/2023 SDOH Screening 03/15/2026 03/15/2025 Tobacco Screening 03/15/2026 03/15/2025 DTaP/Tdap/Td Vaccines (4 - T d or [...] Procedure Name Priority Date/Time Associated Diagnosis Comments AMB REFERRAL TO ALLERGY Routine 03/14/[address] ABDOMEN PELVIS W CONTRAST Routine 02/08/2025 9:59 AM EDT Periumbilical pain, chronic from Last 3 Months Results * Referral to Allergy (03/14/2025) us Chapito Collier MD OUTPATIENT REFERRAL ORDERAB LES Final Result * CT Abdomen Pelvis w/ Contrast (02/08/2025 9:59 AM EDT) Anatomical Region Laterality Modality Body, Pelvis, Abdomen Computed T omography 02/08/2025 9:59 AM EDT Narrative 02/08/2025 10:52 AM EDT [address] [address] [address] Scan Report Signed Patient: Dung Kemp MR#: [id number] : 1995 Acct:[id number] Age/Sex: 29 / F ADM Date: 02/08/25 Loc: HO.CT Attending Dr: Mine Dumont MD Ordering Physician: Mine Dumont MD Date of Service: 02/08/25 Procedure(s): CT abdomen pelvis w IV con Accession Number(s): [id number] cc: Mine Dumont MD; Ally Voss MD Report Number: [id number]: Total DLP = 452.00 mGy-cm EXAMINATION: CT ABDOMEN AND PELVIS WITH CONTRAST CLINICAL INFORMATION: 29-year-old female with periumbilical abdominal pain. COMPARISON: None available. TECHNIQUE: Multidetector volumetric images were obtained from the superior aspect of the liver through the pubic symphysis following administration 85 mL of Omnipaque 350 intravenous contrast. Sagittal and coronal reformatted images were obtained on the technologist's workstation. Oral contrast: Yes This CT examination was performed using dose optimization techniques as appropriate, variously including the following: *Automated exposure control *Adjustment of mA and/or kV according to patient size (this includes techniques or standardized protocols for targeted exams where dose is matched to indication/reason for exam; i.e. extremities or head) *Use of iterative reconstruction technique FINDINGS: LUNG BASES: Lung bases are clear. Heart size is normal. There are no effusions. Normal GE junction. LIVER, GALLBLADDER, AND BILIARY TREE: The liver is normal in size, shape, and demonstrate mild diffuse fatty infiltration. No suspicious focal hepatic lesion or biliary ductal dilatation is present. There is an 8 mm segment 6 enhancing lesion, most consistent with a flash filling hemangioma (series 3, image 26). The gallbladder is unremarkable with no evidence of radiopaque gallstones, gallbladder wall thickening, or obvious pericholecystic inflammatory changes. PANCREAS: Unremarkable. SPLEEN: Unremarkable. Small splenule. ADRENAL GLANDS: Unremarkable. KIDNEYS AND URETERS: The kidneys are normal in size, shape, and attenuation. No hydronephrosis, hydroureter, or calculi seen. No perinephric stranding. BLADDER: Unremarkable. GASTROINTESTINAL TRACT: The small and large bowel are unremarkable. The appendix is unremarkable. ABDOMINAL WALL: Tiny fat-containing umbilical hernia. Otherwise normal. LYMPH NODES: Normal. VASCULAR: Unremarkable. PELVIC VISCERA: The uterus is normal in appearance. It is retroverted and retroflexed. Normal ovaries. No adnexal masses. OSSEOUS STRUCTURES: No suspicious lytic or blastic bone lesion. CT/CT abdomen pelvis w IV con IMPRESSION: 1. No acute finding in the abdomen or pelvis. 2. Mild fatty infiltration of the liver. 3. Ancillary findings as discussed in the body of the report. Electronically signed by: Dylan Stack MD 02/08/2025 10:49 AM EDT Dictated By: Dylan Stack MD Signed By: <Electronically signed by Dylan Stack MD in OV> 02/08/25 1049 DD/ 0959 TD/TT: 02/08/25 1014 Farm Labor Contractor: Procedure Note Donotuseinterpreter, Image - 02/08/[address] [place] [address] [address] Scan Report Signed Patient: Noé Kemp#: [id number] : 1995Acct:[id number] Age/Sex: Date: 02/08/25 Loc: HO.CT Attending Dr: Mine Dumont MD Ordering Physician: Mine Dumont MD Date of Service: 02/08/25 Procedure(s): CT abdomen pelvis w IV con Accession Number(s): [id number] cc: Mine Dumont MD; Ally Voss MD Report Number: [id number]: Total DLP = 452.00 mGy-cm EXAMINATION: CT ABDOMEN AND PELVIS WITH CONTRAST CLINICAL INFORMATION: 29-year-old female with periumbilical abdominal pain. COMPARISON: None available. TECHNIQUE: Multidetector volumetric images were obtained from the superior aspect of the liver through the pubic symphysis following administration 85 mL of Omnipaque 350 intravenous contrast. Sagittal and coronal reformatted images were obtained on the technologist's workstation. Oral contrast: Yes This CT examination was performed using dose optimization techniques as appropriate, variously including the following: *Automated exposure control *Adjustment of mA and/or kV according to patient size (this includes techniques or standardized protocols for targeted exams where dose is matched to indication/reason for exam; i.e. extremities or head) *Use of iterative reconstruction technique FINDINGS: LUNG BASES: Lung bases are clear. Heart size is normal. There are no effusions. Normal GE junction. LIVER, GALLBLADDER, AND BILIARY TREE: The liver is normal in size, shape, and demonstrate mild diffuse fatty infiltration. No suspicious focal hepatic lesion or biliary ductal dilatation is present. There is an 8 mm segment 6 enhancing lesion, most consistent with a flash filling hemangioma (series 3, image 26). The gallbladder is unremarkable with no evidence of radiopaque gallstones, gallbladder wall thickening, or obvious pericholecystic inflammatory changes. PANCREAS: Unremarkable. SPLEEN: Unremarkable. Small splenule. ADRENAL GLANDS: Unremarkable. KIDNEYS AND URETERS: The kidneys are normal in size, shape, and attenuation. No hydronephrosis, hydroureter, or calculi seen. No perinephric stranding. BLADDER: Unremarkable. GASTROINTESTINAL TRACT: The small and large bowel are unremarkable. The appendix is unremarkable. ABDOMINAL WALL: Tiny fat-containing umbilical hernia. Otherwise normal. LYMPH NODES: Normal. VASCULAR: Unremarkable. PELVIC VISCERA: The uterus is normal in appearance. It is retroverted and retroflexed. Normal ovaries. No adnexal masses. OSSEOUS STRUCTURES: No suspicious lytic or blastic bone lesion. CT/CT abdomen pelvis w IV con IMPRESSION: 1. No acute finding in the abdomen or pelvis. 2. Mild fatty infiltration of the liver. 3. Ancillary findings as discussed in the body of the report. Electronically signed by: Dylan Stack MD 02/08/2025 10:49 AM EDT Dictated By: Dylan Stack MD Signed By: <Electronically signed by Dylan Stack MD in OV> 02/08/25 1049 DD/ 0959 TD/TT: 02/08/25 1014 Farm [employer] Contractor: us Mine Dumont MD IMG CT PROCEDURES Final Resul t from Last 3 Months Insurance [facility] C3 Care Teams Supervisor [employer] Relationship Specialty Start Date End Date Ally Voss MD [address] [place] [phone] PCP - General Family Medicine 03/18/21 Juliet Yeager Electronics Engineering Manager 06/30/24
--- OUTSIDE RECORDS SUMMARY | 2025-03-15 11:44 | XMS_ITS | Encounter Summary ---
Author Organization [employer] Address [address] [facility] [address] [place] [address] Care Team Providers Care Lap Machine Tender Name Role Phone Ally Voss MD Primary Care Provider [phone] Encounter Details Date Type Department Care Team (Latest Contact Info) Description 03/15/2025 Travel Social History Tobacco Use Types Packs/Day [...] AM EDT documented as of this encounter Functional Status * Over the [...] AM EDT Carmela Sun MA * Feeling bad about yourself - [...] 9:13 AM EDT Carmela Sun MA * Moving or speaking so slowly that other people could have noticed? Or the opposite - being so fidgety or restless that you have been moving around a lot more than usual. Answer Date of Assessment Author Not at all 03/15/2025 9:13 AM EDT Carmela Sun MA * Thoughts that you would be better off or hurting yourself in some way Answer Date of Assessment Author Not at all 03/15/2025 9:13 AM EDT Carmela Sun MA * Patient Health Questionnaire-9 Score Answer Date of Assessment Author 0 03/15/2025 9:13 AM EDT Carmela Sun MA * Over the last 2 weeks, how often have you been bothered by any of the following problems? Question Answer Date of Assessment Author Feeling nervous, anxious, or on edge 0 03/15/2025 9:13 AM EDT Carmela Glynn MA Not being able to stop or control worrying 0 03/15/2025 9:13 AM EDT Carmela Glynn MA Worrying too much about different things 0 03/15/2025 9:13 AM EDT Carmela Glynn MA Trouble relaxing 0 03/15/2025 9:13 AM EDT Carmela Luong MA Being so restless that it is hard to sit still 0 03/15/2025 9:13 AM EDT Carmela Glynn MA Becoming easily annoyed or irritable 0 03/15/2025 9:13 AM EDT Carmela Glynn MA Feeling afraid as if something awful might happen 0 03/15/2025 9:13 AM EDT Carmela Madrid MA MONTSERRAT-7 Total Score 0 03/15/2025 9:13 AM EDT Carmela Glynn MA documented as of this encounter Plan of Treatment Upcoming Encounters Date Type Department Care Team (Late st Contact Info) Description 04/14/2025 1:00 PM EDT Office Visit [facility] P[facility] [address] [place] [address] Ally Voss MD [address] [place] [address] documented as of this encounter Visit Diagnoses Not on filedocumented in this encounter Additional Health Concerns Assessment Noted Time PHQ-9 Depression Total Score: 0 03/15/20 25 9:13 AM EDT documented as of this encounter Care Teams Lap Machine Tender Relationship Specialty Start Date End Date Ally Voss MD [address] [place] [address] PCP - General Family Medicine 03/18/21 Juliet Yeager Pals Nurse 06/30/24 documented as of this encounter
[2025-03-15 14:45] LABS: MANUAL DIFF FLAG NO
[2025-03-15 14:49] LABS: Hematocrit 39.9 % (37.0-47.0); Hemoglobin 13.1 g/dl (12.0-16.0); Imm Gran Abs Auto 0.01 X10*3/uL (0.00-0.03); Imm Gran Pct Auto 0.1 % (0.0-0.4); Lymphocytes Absolute Auto 2.3 X10*3/uL (1.2-4.9); Mean Corpuscular HGB Conc 32.8 g/dl (31.0-35.0); Mean Corpuscular Hemoglobin 28.2 pg (27.0-33.0); Mean Corpuscular Volume 85.8 fL (80.0-98.0); NRBC Abs Auto 0.000 X10*3/uL (0.0-0.012); NRBC Pct Auto 0.0 /100WBC (0.0-0.2); Platelet Count 211 X10*3/uL (160-400); Red Blood Count 4.65 X10*6/uL (4.20-5.50); White Blood Count 7.3 X10*3/uL (4.8-10.8)
[2025-03-15 15:14] LABS: Alanine Aminotransferase 33 U/L (0-31); Albumin Level 4.7 g/dL (3.5-5.0); Alkaline Phosphatase 78 U/L (39-117); Anion Gap 12 (12-20); Aspartate Amino Transferase 27 U/L (5-31); Blood Urea Nitrogen 9 mg/dL (9-16); Calcium 9.6 mg/dL (8.4-10.2); Carbon Dioxide 27 mmol/L (22-29); Chloride 104 mmol/L (96-108); Estimated Glomerular Filt Rate > 60; Potassium 4.1 mmol/L (3.3-5.1); Sodium 139 mmol/L (135-145); Total Protein 8.2 g/dL (6.5-8.0)
[2025-03-16 04:07] LABS: HIV Num 1 0.20 S/CO (0.00-0.99)
[2025-03-16 09:37] LABS: Lyme Abs Screen <0.90 index
[2025-03-16 19:52] LABS: Antibody to SS-A Antigen <1.0 NEG AI (<1.0 NEG); Antibody to SS-B Antigen <1.0 NEG AI (<1.0 NEG); SM/Ribonucleoprotein Ab <1.0 NEG AI (<1.0 NEG); Smith Protein <1.0 NEG AI (<1.0 NEG)
[2025-03-22 18:33] LABS: Anti Nuclear Antibody Pattern Nuclear, Speckled; Anti Nuclear Antibody Screen POSITIVE (NEGATIVE); Anti Nuclear Antibody Titer 1:40 titer
== END 2025-03-15 10:51 | disposition home or self-care (01) ==
LOC: HO.CHCLDS 10:50
PROVIDERS: Visit Provider Family Medicine
DX: Z11.4 Encounter for screening for human immunodeficiency virus [HIV] (principal); Z01.84 Encounter for antibody response examination; Z11.3 Encounter for screening for infections with a predominantly sexual mode of transmission; R20.0 Anesthesia of skin; R21 Rash and other nonspecific skin eruption
CPT/HCPCS: 36415; 80053; 84443; 85025; 85652; 86038; 86039; 86140; 86225; 86235; 86431; 86592; 86617; 86618; 87389

== ENCOUNTER 2025-04-14 13:46 | Outpatient (REF) | payer MEDICAID, SELFPAY ==
--- OUTSIDE RECORDS SUMMARY | 2025-04-14 13:00 | XMS_ITS | Encounter Summary ---
Author Organization [employer] Address [address] [place] [address] [place] [address] Care Team Providers Care Food And Drug Research Scientist Name Role Phone Ally Voss MD Primary Care Provider [phone] Reason for Referral * Consultation (Routine) - Authorized Specialty Diagnoses / Procedures Referred By Twyla t Referred To Contact Midwifery Diagnoses Periumbilical pain, chronic Pelvic pain Abnormal uterine bleeding Ally Voss MD [address] [place] [address] Phone: tel: fax: Kasie Santiago, PEPE [address] [place] [address] Phone: tel: fax: Referral ID Status Reason Start Date Expiration Date Visits Requested Visits Authorized [id number] Authorized Consult and Treat 04/14/2025 04/14/2026 1 1 * Imaging (Routine) - Authorized Specialty Diagnoses / Procedures Referred By Contac t Referred To Contact Radiology Diagnoses Periumbilical pain, chronic Procedures Mr Brain w/ and w/o Contrast Ally Voss MD [address] [place] [address] Phone: tel: fax: [facility] [address] [place] [address] Phone: tel: fax: Referral ID Status Reason Start Date Expiration Date V isits Requested Visits Authorized [id number] Authorized 04/14/2025 04/14/2026 1 1 * Imaging (Routine) - Authorized Specialty Diagnoses / Procedures Referred By Contac t Referred To Contact Radiology Diagnoses Periumbilical pain, chronic Pelvic pain Procedures Us Pelvis complete Ally Voss MD [address] [place] [address] Phone: tel: fax: [address] Phone: tel: fax: Referral ID Status Reason Start Date Expiration Date V isits Requested Visits Authorized [id number] Authorized 04/14/2025 04/14/2026 1 1 * Imaging (Routine) - Authorized Specialty Diagnoses / Procedures Referred By Contac t Referred To Contact Radiology Diagnoses Periumbilical pain, chronic Pelvic pain Procedures US Pelvis Transvaginal Ally Voss MD [address] [place] [address] Phone: tel: fax: [address] Phone: tel: fax: Referral ID Status Reason Start Date Expiration Date V isits Requested Visits Authorized [id number] Authorized 04/14/2025 04/14/2026 1 1 Reason for Visit * Reason Comments Follow-up Encounter Details Date Type Department Care Team (Latest Contact Info) Description 04/14/2025 1:00 PM EDT Office Visit [facility] [address] [place] [address] Ally Voss MD [address] [place] [address] Periumbilical pain, chronic (Primary Dx); Pelvic pain; Dietary counseling; Exercise counseling; Class 1 obesity without serious comorbidity with body mass index (BMI) of 33.0 to 33.9 in adult, unspecified obesity type; Left facial numbness; Abnormal uterine bleeding Social History Tobacco Use Types Packs/Day Years [...] Sign Reading Time Taken Comments Blood Pressure 120/84 04/14/2025 1:04 PM EDT Pulse 82 04/14/2025 1:04 PM EDT Temperature 37.4 C (99.3 F) 04/14/2025 1:04 PM EDT Respiratory Rate 20 04/14/2025 1:04 PM EDT Oxygen Saturation 98% 04/14/2025 1:04 PM EDT Inhaled Oxygen Concentration - - Weight 78.7 kg (173 lb 9.6 oz) 04/14/2025 1:04 P M EDT Height 154.9 cm (5' 1 ) 04/14/2025 1:04 PM EDT Body Mass Index 32.8 04/14/2025 1:04 PM EDT documented in this encounter Plan of Treatment Scheduled Orders Name Type Priority Associated Diagnoses Orde r Schedule US Pelvis Transvaginal Imaging Routine Periumbilical pain, chronic Pelvic pain Expected: 04/14/2025, Expires: 04/14/2026 Us Pelvis complete Imaging Routine Periumbilical pain, chronic Pelvic pain Expected: 04/14/2025, Expires: 04/14/2026 hCG, Total, Quantitative Lab Routine Pelvic pain Expected: 04/14/2025 (Approximate), Expires: 04/14/2026 Mr Brain w/ and w/o Contrast Imaging Routine Periumbilical pain, chronic Expected: 04/14/2025, Expires: 04/14/2026 FSH Lab Routine Abnormal uterine bleeding Expected: 04/14/2025, Expires: 04/14/2026 Estradiol Lab Routine Abnormal uterine bleeding Expected: 04/14/2025, Expires: 04/14/2026 Prolactin, Dilution Study Lab Routine Abnormal uterine bleeding Expected: 04/14/2025 (Approximate), Expires: 04/14/2026 Celiac Disease Comprehensive Panel Lab Routine Periumbilical pain, chronic Expected: 04/14/2025, Expires: 04/14/2026 Lipid Panel, Standard Lab Routine Class 1 obesity without serious comorbidity with body mass index (BMI) of 33.0 to 33.9 in adult, unspecified obesity type Expected: 04/14/2025 (Approximate), Expires: 04/14/2026 Calprotectin, Stool Lab Routine Periumbilical pain, chronic Expected: 04/14/2025, Expires: 04/14/2026 Scheduled Referrals Name Type Priority Associated Diagnoses Order Schedule Referral to Gynecology (Kasie) Outpatient Referral Routine Periumbilical pain, chronic Pelvic pain Abnormal uterine bleeding Expected: 04/14/2025 (Approximate), Expires: 04/14/2026 documented as of this encounter Procedures Procedure Name Priority Date/Time Associated Diagnosis Comments POCT , URINE Routine 04/14/2025 1:27 PM EDT Pelvic pain documented in this encounter Results * POCT Urine (04/14/2025 1:27 PM EDT) Preg Test, Ur Negative Negative, Indeterminate, None Detected, Invalid, Specimen unsatisfactory for evaluation, Weakly Positive, 2+ QC Media Lot # [id number] Lot# Expiration Date [id number] Urine 04/14/2025 1:27 PM EDT us Ally Voss MD POINT OF CARE TEST ENTER/EDIT ORDERABLES Final Result documented in this encounter Visit Diagnoses Diagnosis Periumbilical pain, chronic- Primary Pelvic pain Dietary counseling Dietary surveillance and counseling Exercise counseling Class 1 obesity without serious comorbidity with body mass index (BMI) of 33.0 to 33.9 in adult, unspecified obesity type Left facial numbness Disturbance of skin sensation Abnormal uterine bleeding Unspecified disorder of menstruation and other abnormal bleeding from female genital tract documented in this encounter Additional Health Concerns Assessment Noted Time PHQ-9 Depression Total Score: 0 03/15/20 25 9:13 AM EDT documented as of this encounter Care Teams Food And Drug Research Scientist Relationship Specialty Start Date End Date Ally Voss MD [address] [place] [address] PCP - General Family Medicine 03/18/21 Juliet Yeager Hand Quilter 06/30/24 documented as of this encounter
--- OUTSIDE RECORDS SUMMARY | 2025-04-14 14:56 | XMS_ITS | Clinical Summary ---
Author Organization [employer] Address [address] [place] [address] 7[address] [place] [address] Care Team Providers Care Accident Examiner Name Role Phone Ally Voss MD Primary Care Provider [phone] Allergies Active Allergy Reactions Criticality Noted Date [...] 5 MIN THEN RINSE OFF 5 Active calcipotriene (Dovonex) 0.005 % ointment APPLY TO AFFECTED AREAS ON NECK, AXILLAE, INFRAMAMMARY TWICE A DAY ALTERNATING WITH TOPICAL STEROID 5 Active Active Problems Problem Noted Date Diagnosed Date Pelvic pain 04/14/2025 Abnormal uterine bleeding 04/14/2025 Rectal bleeding 03/15/2025 Periumbilical pain, chronic 03/15/2025 Rash 03/15/2025 Left facial numbness 03/15/2025 Fatigue 12/09/2023 Elevated blood pressure reading 12/09/2023 [...] follow up with PCP. At this time Arlet Kepm meets criteria for Visit Diagnoses: Problem List Items Addressed This Visit Other depression Patient ready to address current needs Yes Strengths- arlet is a part of a loving family and she is open to additional supports. PLAN: 1. Follow up with [facility]: Recommended for follow-up: As needed 2. Patient [...] Problem Noted Date Diagnosed Date Resolved Date Acute abdominal pain 06/23/2024 025 Assessment & Plan (06/23/2024 10:57 AM EST): Advised to follow up with Gynecology for Sx and further evaluation. Class 1 obesity 10/16/2022 10/16/2022 Encounters Date Type Department Care Team Description 04/14/2025 1:00 PM EDT Office Visit [facility] [address] [place], [place] [phone] Ally Voss MD Periumbilical pain, chronic (Primary Dx); Pelvic pain; Dietary counseling; Exercise counseling; Class 1 obesity without serious comorbidity with body mass index (BMI) of 33.0 to 33.9 in adult, unspecified obesity type; Left facial numbness; Abnormal uterine bleeding 04/14/2025 Travel 04/07/2025 Travel 03/22/2025 Results Follow-Up [facility] [address] [place] [phone] Ally Voss MD Comprehensive Metabolic Panel, DNA (ds) Antibody, Sm and Sm/MOLD MAKER PLASTIC MOLDS Antibodies, Additional followed-up results: 10 03/16/2025 Telephone [employer] [address] [place] [phone] Ally Voss MD mri abd order 03/15/2025 9:00 AM EDT Office Visit [facility] [address] [place] [address] Ally Voss MD Rectal bleeding (Primary Dx); Periumbilical pain, chronic; Rash; Left facial numbness 03/15/2025 Travel 03/14/2025 Telephone [facility] [address] [place] [phone] Ally Voss MD chart prep 03/09/[address] [address] Ally Voss MD Care Management (C3CM follow up call) 03/08/2025 Patient Outreach [address] [address] Ally Voss MD Pre-visit Planning (Pre visit planning unable to LVM ) 03/08/2025 Travel 02/20/2025 Results Follow-Up [facility] [address] [place] [address] [phone] Mine Dumont MD CT Abdomen Pelvis w/ Contrast 02/17/2025 Telephone [facility] [address] [place] [address] [phone] Ally Voss MD Change PCP 02/13/2025 Telephone [address] [place] [address] Ally Voss MD Care Management (C3CM follow up call) 02/02/[address] [address] Ally Voss MD Nurse Triage 01/27/2025 11:15 AM EDT Office Visit [facility] [address] [place] [address] Moi Velazquez MD Allergic dermatitis (Primary Dx) 01/27/2025 Travel 01/18/[address] [address] Ally Voss MD Care Management (C3CM follow up call) 01/13/2025 Telephone [facility] [address] [place] [address] Ally Voss MD Nurse Triage from Last [...] Mass Index 32.8 04/14/2025 1:04 PM EDT Plan of Treatment Health Maintenance Due Date Last Done Comments Lipid Panel 1993 Family Planning (PISQ) 2008 HPV Vaccines (1 - 3-dose series) 2008 Hepatitis C Screening 2011 Hepatitis B Vaccines (1 of 3 - 19+ 3-dose series) 2012 Pap Smear 2014 Cervical Cancer Screening 2023 HPV/Cotest 2023 COVID-19 Vaccine (1 - 2023-2 5 season) 2025 Influenza Vaccine (#1) 2026 Postp oned from 03/20/2025 (Patient Refused) Disability Screening 03/08/2026 03/08/2025 Alcohol/Substance Use Screening 03/15/2026 03/15/2025 Depression Screening 03/15/2026 03/15/2025, 04/29/2023 SDOH Screening 03/15/2026 03/15/2025 Tobacco Screening 04/14/2026 04/14/2025 DTaP/Tdap/Td Vaccines (4 - T d or Tdap) 05/09/2034 05/09/2024, 05/27/2022, 12/30/2021 Zoster Vaccines (1 of 2) 2043 RSV Patients and Patients Aged 60 years or older (1 - 1-dose 75+ series) 2068 HIV Screening Completed 03/15/2025 HIB Vaccines Aged Out No longer eligi [...] Routine 04/14/2025 1:27 PM EDT Pelvic pain CBC WITH AUTO DIFFERENTIAL Routine 03/15/2025 10:58 AM EDT Left facial numbness RPR (MONITOR) W/REFL TITER Routine 03/15/2025 10:56 AM EDT Left facial numbness HIV 1/2 ANTIGEN/ANTIBODY, FOURTH GENERATION W/RFL Routine 03/15/2025 10:56 AM EDT Left facial numbness LYME DISEASE AB W/REFL TO BLOT (IGG, IGM) Routine 03/15/2025 10:56 AM EDT Left facial numbness RHEUMATOID FACTOR Routine 03/15/2025 10: 56 AM EDT Left facial numbness C-REACTIVE PROTEIN Routine 03/15/2025 10 :56 AM EDT Left facial numbness SED RATE BY MODIFIED WESTERGREN Routine 03/15/2025 10:56 AM EDT Left facial numbness TSH W/REFLEX TO FT4 Routine 03/15/2025 1 0:56 AM EDT Left facial numbness SJOGREN'S ANTIBODIES (SS-A,SS-B) Routine 03/15/2025 10:56 AM EDT Rash SM AND SM/MOLD MAKER PLASTIC MOLDS ANTIBODIES Routine 03/15/2025 10:56 AM EDT Rash DNA (DS) ANTIBODY Routine 03/15/2025 10: 56 AM EDT Rash LASHELL SCREEN, IFA, W/REFL TITER AND PATTERN Routine 03/15/2025 10:56 AM EDT Rash COMPREHENSIVE METABOLIC PANEL Routine 03/15/2025 10:56 AM EDT Rash AMB REFERRAL TO ALLERGY Routine 03/14/[address] ABDOMEN PELVIS W CONTRAST Routine 02/08/2025 9:59 AM EDT Periumbilical pain, chronic from Last 3 Months Results * POCT Urine (04/14/2025 1:27 PM EDT) Preg Test, Ur Negative Negative, Indeterminate, None Detected, Invalid, Specimen unsatisfactory for evaluation, Weakly Positive, 2+ QC Media Lot # [id number] Lot# Expiration Date [id number] Urine 04/14/2025 1:27 PM EDT Ally Voss MD POINT OF CARE TEST ENTER/EDIT ORDERABLES Final Result * CBC auto differential (03/15/2025 10:58 AM EDT) White Blood Count 7.3 4.8 - 10.8 X10*3/uL [facility] Red Blood Count 4.65 4.20 - 5.50 X10*6/uL [facility] Hemoglobin 13.1 12.0 - 16.0 g/dl [facility] Hematocrit 39.9 37.0 - 47.0 % [facility] Mean Corpuscular Volume 85.8 80.0 - 98.0 fL [facility] Mean Corpuscular Hemoglobin 28.2 27.0 - 33.0 pg [facility] Mean Corpuscular HGB Conc 32.8 31.0 - 35.0 g/dl [facility] Red Cell Distribution Width 14.9 11.0 - 16.0 % [facility] Platelet Count 211 160 - 400 X10*3/uL [facility] Mean Platelet Volume 12.3 9.4 - 12.3 [facility] Neutrophils Percent Auto 58.9 45 - 73 % [facility] Imm Gran Pct Auto 0.1 0.0 - 0.4 % [facility] Lymphocytes Percent Auto 31.1 20 - 40 % [facility] Monocytes Percent Auto 6.9 2 - 11 % [facility] Eosinophils Percent Auto 2.5 0 - 4 % [facility] Basophils Percent Auto 0.5 0 - 2 % [facility] NRBC Pct Auto 0.0 0.0 - 0.2 /100WBC [facility] Neutrophils Absolute Auto 4.3 2.0 - 8.3 x10*3/uL [facility] Imm Gran Abs Auto 0.01 0.00 - 0.03 X10*3/uL [facility] Lymphocytes Absolute Auto 2.3 1.2 - 4.9 X10*3/uL [facility] Monocytes Absolute Auto 0.5 0.1 - 1.2 X10*3/uL [facility] Eosinophils Absolute Auto 0.2 0.0 - 0.4 X10*3/uL [facility] Basophils Absolute Auto 0.0 0.0 - 0.2 X10*3/uL [facility] NRBC Abs Auto 0.000 0.0 - 0.012 X10*3/uL [facility] Blood Venous blood specimen / Unknown 03/15/2025 10:58 AM EDT 03/15/2025 2:37 PM EDT Ally Voss MD LAB BLOOD ORDERABLES Final Re sult Performing Organization Address City/[facility] Co de Phone Number [facility] [address] [place] [phone] * Sm and Sm/MOLD MAKER PLASTIC MOLDS Antibodies (03/15/2025 10:56 AM EDT) Sm Antibody <1.0 NEG <1.0 NEG [facility] SM/MOLD MAKER PLASTIC MOLDS Antibody <1.0 NEG <1.0 NEG [facility] Comment:THIS TEST WAS PERFOR MED AT:[facility] [place] [id number] JACOBS MD 03/15/2025 10:5 6 AM EDT 03/15/2025 2:37 PM EDT Ally Voss MD LAB BLOOD ORDERABLES Final Re sult Performing Organization Address [facility] Co de Phone Number [facility] [address] [place] [phone] * TSH W/Reflex to FT4 (03/15/2025 10:56 AM EDT) TSH reflex Free T4 1.06 0.32 - 4.0 uIU/mL [facility] Blood Venous blood specimen / Unknown 03/15/2025 10:56 AM EDT 03/15/2025 2:37 PM EDT Ally Voss MD LAB BLOOD ORDERABLES Final Re sult Performing Organization Address City/[facility] Co de Phone Number [facility] [address] [place] [phone] * Sjogren's Antibodies (SS-A,SS-B) (03/15/2025 10:56 AM EDT) Sjogren's Antibody (SS-A) <1.0 NEG <1.0 NEG AI [facility] Sjogren's Antibody (SS-B) <1.0 NEG <1.0 NEG [facility] Comment:THIS TEST WAS PERFOR MED AT:[facility] [address] [id number] JACOBS MD 03/15/2025 10:5 6 AM EDT 03/15/2025 2:37 PM EDT Ally Voss MD LAB BLOOD ORDERABLES Final Re sult Performing Organization Address [facility] Co de Phone Number [facility] [address] [place] [phone] * Lyme Disease Ab with Reflex to Blot (IgG, IgM) (03/15/2025 10:56 AM EDT) Lyme Antibody Screen <0.90 index [facility] Comment:Index Interpretation ----- < 0.90 Negative 0.90-1.09 Equivocal > 1.09 PositiveAs recommended by the Food and Drug Administration(FDA), all samples with positive or equivocalresults in a Borrelia burgdorferi antibody screenwill be tested using a blot method. Positive orequivocal screening test results should not beinterpreted as truly positive until verified as suchusing a supplemental assay (e.g., B. burgdorferi blot).The screening test and/or blot for B. burgdorferiantibodies may be falsely negative in early stagesof Lyme disease, including the period when erythemamigrans is apparent.THIS TEST WAS PERFORMED AT:[facility] [address] JAIR JACOBS MD Lyme Blot [facility] 03/15/2025 10:5 6 AM EDT 03/15/2025 2:37 PM EDT Ally Voss MD LAB BLOOD ORDERABLES Final Re sult Performing Organization Address [facility]/ZIP Co de Phone Number [facility] [address] [place] [phone] * DNA (ds) Antibody (03/15/2025 10:56 AM EDT) Anti DNA DS Antibody <1 IU/mL [facility] Comment:IU/mL Interpretation < or = 4 Negative 5-9 Indeterminate > or = 10 PositiveTHIS TEST WAS PERFORMED AT:[facility] [address] JAIR JACOBS MD Blood Venous blood specimen / Unknown 03/15/2025 10:56 AM EDT 03/15/2025 2:37 PM EDT Ally Voss MD LAB BLOOD ORDERABLES Final Re sult Performing Organization Address [facility] Co de Phone Number [facility] [address] [place] [phone] * RPR (Monitor) with Reflex to??Titer (03/15/2025 10:56 AM EDT) RPR (Monitor) w/Refl Titer NON-REACTI VE NON-REACT DIANA [facility] Comment:THIS TEST WAS PERFOR MED AT:[facility] [address] [id number] JACOBS MD Rapid Plasma Reagin Ab Titer [facility] Blood Venous blood specimen / Unknown 03/15/2025 10:56 AM EDT 03/15/2025 2:37 PM EDT Ally Voss MD LAB BLOOD ORDERABLES Final Re sult Performing Organization Address [facility]/ZIP Co de Phone Number [facility] [address] [place] [phone] [phone] * HIV-1/2 Antigen and Antibodies, Fourth Generation, with Reflexes (03/15/2025 10:56 AM EDT) HIV AB/AG Nonreactive Nonreactive [facility] Comment:HIV-1 p24 Ag and/or HIV-1/HIV-2 Ab not detected.A test result that is nonreactive does not exclude thepossibility of exposure to or infection with HIV-1 and/orHIV-2. Nonreactive results in this assay for individualswith prior exposure to HIV-1 and/or HIV-2 may be due toantigen and antibody levels that are below the limit ofdetection of this assay.The [employer] HIV Ag/Ab Combo assay result andsupplemental assay results should be interpreted inconjunction with the patient's clinical presentation,history and other laboratory results. If the results areinconsistent with clinical evidence, additional testing issuggested to confirm the result. Blood Venous blood specimen / Unknown 03/15/2025 10:56 AM EDT 03/15/2025 2:37 PM EDT Ally Voss MD LAB BLOOD ORDERABLES Final Re sult Performing Organization Address [facility] Co de Phone Number [facility] [address] [place] [phone] * Sed Rate by Modified Westergren (03/15/2025 10:56 AM EDT) Erythrocyte Sedimentation Rate 7 0 - 20 MM/HR [facility] Comment:Patients with polycy themia and many hemoglobin abnormalitiesmay have depressed sed rates whereas patients with anemiamay have elevated sed rates. Blood Venous blood specimen / Unknown 03/15/2025 10:56 AM EDT 03/15/2025 2:37 PM EDT Ally Voss MD LAB BLOOD ORDERABLES Final Re sult Performing Organization Address [facility] Co de Phone Number [facility] [address] [place] [phone] * Rheumatoid Factor (03/15/2025 10:56 AM EDT) Rheumatoid Factor <13.0 <15.0 IU/mL [facility] Blood Venous blood specimen / Unknown 03/15/2025 10:56 AM EDT 03/15/2025 2:37 PM EDT Ally Voss MD LAB BLOOD ORDERABLES Final Re sult Performing Organization Address [facility] Co de Phone Number [facility] [address] [place] [phone] * C-reactive Protein (03/15/2025 10:56 AM EDT) Pathologist [facility] C Reactive Protein <0.10 < or = 0.50 mg/dL [facility] Blood Venous blood specimen / Unknown 03/15/2025 10:56 AM EDT 03/15/2025 2:37 PM EDT Ally Voss MD LAB BLOOD ORDERABLES Final Re sult Performing Organization Address [facility] de Phone Number [facility] [address] [place] [phone] * (ABNORMAL) LASHELL Screen,IFA, with Reflex to Titer and Pattern (03/15/2025 10:56 AM EDT) Anti Nuclear Antibody Screen POSITIVE (A) NEGATIVE [facility] Comment:LASHELL IFA is a first l ine screen for detecting thepresence of up to approximately 150 autoantibodies invarious autoimmune diseases. A positive LASHELL IFA resultis suggestive of autoimmune disease and reflexes totiter and pattern. Further laboratory testing may beconsidered if clinically indicated.For additional information, please refer tohttp://education.[employer].com/faq/BCM684(This link is being provided for informational/educational purposes only.) LASHELL Titer 1:40(A) titer [facility] Comment:A low level LASHELL tite r may be present in pre-clinicalautoimmune diseases and normal individuals. Reference Range <1:40 Negative 1:40-1:80 Low Antibody Level >1:80 Elevated Antibody Level LASHELL Pattern Nuclear, Speckled (A) [facility] Comment:Speckled pattern is associated with mixed connectivetissue disease (MCTD), systemic lupus erythematosus(SLE), Sjogren's syndrome, dermatomyositis, andsystemic sclerosis/polymyositis overlap.AC-2,4,5,29: SpeckledInternational Consensus on LASHELL Patterns(https://doi.org/10.1515/lmnh-2386-0014)THIS TEST WAS PERFORMED AT:[facility] [place] [id number] JACOBS MD LASHELL TITER 2 (REF LAB) TNP [facility] LASHELL Pattern 2 TNP [facility] LASHELL TITER 3 [facility] LASHELL PATTERN 3 TNP [facility] Blood Venous blood specimen / Unknown 03/15/2025 10:56 AM EDT 03/15/2025 2:37 PM EDT Ally Voss MD LAB BLOOD ORDERABLES Final Re sult [facility] [address] [place] [phone] * (ABNORMAL) Comprehensive Metabolic Panel (03/15/2025 10:56 AM EDT) Sodium 139 135 - 145 mmol/L [facility] Potassium 4.1 3.3 - 5.1 mmol/L [facility] Chloride 104 96 - 108 mmol/L [facility] Carbon Dioxide 27 22 - 29 mmol/L [facility] Anion Gap 12 12 - 20 [facility] Urea Nitrogen (BUN) 9 9 - 16 mg/dL [facility] Creatinine, Serum 0.64 0.5 - 1.4 mg/dL [facility] Estimated Glomerular Filt Rate >60 [facility] Comment:Chronic Kidney Disea se: Estimated GFR < 60 mL/min/1.40u0Ylcrnh Kidney Disease: Estimated GFR < 15 mL/min/1.73m2 Glucose 86 60 - 115 mg/dL [facility] Calcium 9.6 8.4 - 10.2 mg/dL [facility] Bilirubin, Total 0.6 0.0 - 1.0 mg/dL [facility] Aspartate Amino Transferase 27 5 - 31 U/L [facility] Alanine Aminotransferase 33(H) 0 - 31 U/L [facility] Total Protein 8.2(H) 6.5 - 8.0 g/dL [facility] Albumin Level 4.7 3.5 - 5.0 g/dL [facility] Alkaline Phosphatase 78 39 - 117 U/L [facility] Blood Venous blood specimen / Unknown 03/15/2025 10:56 AM EDT 03/15/2025 2:37 PM EDT us Ally Voss MD LAB BLOOD ORDERABLES Final Re sult [facility] [address] [place] [phone] * Referral to Allergy (03/14/2025) us Chapito Collier MD OUTPATIENT REFERRAL ORDERAB LES Final Result * CT Abdomen Pelvis w/ Contrast (02/08/2025 9:59 AM EDT) Anatomical Region Laterality Modality Body, Pelvis, Abdomen Computed T omography 02/08/2025 9:59 AM EDT Narrative 02/08/2025 10:52 AM EDT [address] [address] [address] Scan Report Signed Patient: Arlet Kemp MR#: [id number] : 1995 Acct:[id number] Age/Sex: 29 / F ADM Date: 02/08/25 Loc: HO.CT Attending Dr: Mine Dumont MD Ordering Physician: Mine Dumont MD Date of Service: 02/08/25 Procedure(s): CT abdomen pelvis w IV con Accession Number(s): [id number] cc: Mine Dumont MD; Ally Voss MD Report Number: [id number]: Total DLP = 452.00 mGy-cm EXAMINATION: CT [...] 02/08/25 1049 DD/ 0959 TD/TT: 02/08/25 1014 Heat And Frost Insulator Helper: Procedure Note Donotuseinterpreter, Image - 02/08/[address] [place] [address] [address] Scan Report Signed Patient: Noé Kemp#: [id number] : 1995Acct:[id number] Age/Sex: M Date: 02/08/25 Loc: HO.CT Attending Dr: Mine Dumont MD Ordering Physician: Mine Dumont MD Date of Service: 02/08/25 Procedure(s): CT abdomen pelvis w IV con Accession Number(s): [id number] cc: Mine Dumont MD; Ally Voss MD Report Number: [id number]: Total DLP = 452.00 mGy-cm EXAMINATION: CT [...] 02/08/25 1049 DD/ 0959 TD/TT: 02/08/25 1014 Heat And Frost Insulator Helper: us Mine Dumont MD IMG CT PROCEDURES Final Resul t from Last 3 Months Insurance [facility] C3 Care Teams Accident Examiner Relationship Specialty Start Date End Date Ally Voss MD [address] [place] [phone] PCP - General Family Medicine 03/18/21 Juliet Yeager Education Finance Processor 06/30/24
--- OUTSIDE RECORDS SUMMARY | 2025-04-14 14:56 | XMS_ITS | Encounter Summary ---
Author Organization [employer] Address [address] [facility] [address]t [place] [address] Care Team Providers Care Neuroscientist Name Role Phone Ally Voss MD Primary Care Provider [phone] Reason for Visit * Reason Comments Med Refill Encounter Details Date Type Department Care Team ([facility] st Contact Info) Description 12/04/2023 Refill [facility] [address] [place] [address] Ally Voss MD [address] [place], [place] [phone] Social History Tobacco Use Types Packs/Day Years [...] on filedocumented in this encounter Care Teams Neuroscientist Relationship Specialty Start Date End Date Ally Voss MD [address] [place] [address] PCP - General Family Medicine 03/18/21 Juliet Yeager Hydroblaster 06/30/24 documented as of this encounter
--- OUTSIDE RECORDS SUMMARY | 2025-04-14 14:56 | XMS_ITS | Encounter Summary ---
Author Organization [employer] Address [address] [place] [address] [address]t [place] [address] Care Team Providers Care Fuel Verification Technician Name Role Phone Ally Voss MD Primary Care Provider [phone] Encounter Details Date Type Department Care Team ([facility] Contact Info) Description 02/20/2025 Results Follow-Up [facility] [address] [place] [address] Mine Dumont MD [address] [place] [address] CT Abdomen Pelvis w/ Contrast Social History [...] documented as of this encounter Care Teams Fuel Verification Technician Relationship Specialty Start Date End Date Ally Voss MD [address] [place] [address] PCP - General Family Medicine 03/18/21 Juliet Yeager Feeder/Folder 06/30/24 documented as of this encounter
--- OUTSIDE RECORDS SUMMARY | 2025-04-14 14:56 | XMS_ITS | Encounter Summary ---
Author Organization [employer] Address [address] [facility] [address]t [place] [address] Care Team Providers Care Clearance Representative Name Role Phone Ally Voss MD Primary Care Provider [phone] Encounter Details Date Type Department Care Team (Latest Contact Info) Description 04/14/2025 Travel Social History Tobacco Use Types Packs/Day [...] documented as of this encounter Care Teams Clearance Representative Relationship Specialty Start Date End Date Ally Voss MD [address] [place] [address] PCP - General Family Medicine 03/18/21 Juliet Yeager Section Gang Worker 06/30/24 documented as of this encounter
[2025-04-14 18:38] LABS: Cholesterol 179 mg/dL (<200); HDL Cholesterol 42 mg/dL (>40); Triglycerides 170 mg/dL (<150)
[2025-04-17 15:39] LABS: Follicle Stimulating Hormone 8.9 mIU/mL; Prolactin Undiluted 9.4 ng/mL
[2025-04-17 22:28] LABS: Immunoglobulin A 541 mg/dL (47-310)
[2025-05-04 02:13] LABS: Estradiol Ultra Sensitive 41 pg/mL
== END 2025-04-14 13:47 | disposition home or self-care (01) ==
LOC: HO.CHCLDS 13:46
PROVIDERS: Visit Provider Family Medicine
DX: R10.2 Pelvic and perineal pain (principal); R10.33 Periumbilical pain; G89.29 Other chronic pain; N93.9 Abnormal uterine and vaginal bleeding, unspecified; E66.811 Obesity, class 1; Z68.33 Body mass index [BMI] 33.0-33.9, adult
CPT/HCPCS: 36415; 80061; 82670; 82784; 83001; 84146; 84702; 86364